=== PATIENT | female | born 1965 | race Caucasian/White ===

== ENCOUNTER → 2018-02-22 10:08 | Outpatient (CLI) | payer BC, SELFPAY ==
[2018-02-22 11:37] LABS: Hemoglobin A1C 6.3 % (0.0-7.0)
[2018-02-22 12:13] LABS: Alanine Aminotransferase 39 U/L (12-78); Albumin Level 3.5 gm/dL (3.4-5.0); Alkaline Phosphatase 103 U/L (46-116); Anion Gap 15.5 mEq/L (5-15); Aspartate Amino Transferase 16 U/L (15-37); Bilirubin,Total 0.3 mg/dL (0.2-1.0); Blood Urea Nitrogen 19 mg/dL (7-18); Calcium 9.3 mg/dL (8.5-10.1); Carbon Dioxide 28 mmol/L (21.0-32.0); Chloride 103 mmol/L (98-107); Chol/HDL Ratio 7.5 (1-3.5); Cholesterol 254 mg/dL (140-200); Creatinine,Serum 1.12 mg/dL (0.55-1.02); Estimated Glomerular Filt Rate 51 ml/min (>60); GFR (African American) 62 ML/MIN (>60); Globulin 3.5 gm/dl (1.3-3.2); Glucose 142 mg/dL (74-106); HDL Cholesterol 34 mg/dL (29-89); Potassium 4.5 mmoL/L (3.5-5.1); Sodium 142 mmol/L (136-145); Thyroid Stimulating Hormone 1.56 uIU/ml (0.358-3.740)
[2018-02-22 12:16] LABS: Triglycerides 462 mg/dL (30-200)
[2018-02-25 05:29] LABS: Vitamin D 25 Hydroxy 25.9 ng/mL (30.0-100.0)
== END ==
PROVIDERS: Visit Provider Family Medicine
DX: E11.9 Type 2 diabetes mellitus without complications (principal); E55.9 Vitamin D deficiency, unspecified; E01.0 Iodine-deficiency related diffuse (endemic) goiter; I10 Essential (primary) hypertension
CPT/HCPCS: 36415; 80053; 80061; 82652; 83036; 84443

== ENCOUNTER → 2018-07-31 14:33 | Outpatient (CLI) | payer BC, SELFPAY ==
[2018-07-31 18:51] LABS: Cholesterol 136 mg/dL (140-200); Free T4 (Free Thyroxine) 1.05 ng/dl (0.76-1.46); HDL Cholesterol 45 mg/dL (29-89); LDL Cholesterol 42 mg/dL (0-130); Thyroid Stimulating Hormone 1.29 uIU/ml (0.358-3.740); Triglycerides 244 mg/dL (30-200); VLDL Cholesterol 49 mg/dL (0-40)
[2018-08-02 17:17] LABS: Vitamin D 25 Hydroxy 45.4 ng/mL (30.0-100.0)
== END ==
PROVIDERS: Visit Provider Emergency Medicine
DX: E78.2 Mixed hyperlipidemia (principal); E03.9 Hypothyroidism, unspecified; E55.9 Vitamin D deficiency, unspecified
CPT/HCPCS: 36415; 80061; 82652; 84439; 84443

== ENCOUNTER 2018-11-19 00:11 | Observation (INO) ==
[2018-11-19 00:42] LABS: Basophils # 0.1 K/mm3 (0-0.2); Basophils % 0.5 % (0.1-2.0); Eosinophils # 0.3 K/mm3 (0.0-0.4); Eosinophils % 2.9 % (0.1-12.0); Hematocrit 36.4 % (37.0-47.0); Hemoglobin 12.1 g/dL (12.2-16.2); Lymphocytes # 2.4 K/mm3 (0.7-4.5); Lymphocytes % 24.8 % (10-50); Mean Corpuscular HGB Conc 33.3 g/dL (31.8-35.4); Mean Corpuscular Hemoglobin 29.9 pg (27.0-31.2); Mean Corpuscular Volume 89.9 fl (81-99); Mean Platelet Volume 7.6 fl (7.4-10.4); Monocytes # 0.4 K/mm3 (0.1-1.0); Monocytes % 4.6 % (1.7-9.3); Neutrophils # 6.5 K/mm3 (1.8-7.8); Neutrophils % 67.2 % (37.0-80.0); Platelet Count 292 K/mm3 (142-424); Red Blood Count 4.05 M/mm3 (4.20-5.40); Red Cell Distribution Width 13.2 % (11.5-17.5); White Blood Count 9.7 K/mm3 (4.8-10.8)
[2018-11-19 00:57] LABS: Anion Gap 9.2 mEq/L (5-15); Blood Urea Nitrogen 16 mg/dL (7-18); Carbon Dioxide 32 mmol/L (21.0-32.0); Chloride 102 mmol/L (98-107); Glucose 124 mg/dL (74-106); Potassium 4.2 mmoL/L (3.5-5.1); Sodium 139 mmol/L (136-145)
--- NOTE | 2018-11-19 00:58 | Emergency Department Note ---
ED Disposition Clinical Impression: Acquired hypothyroidism, Diabetes 1.5, managed as type 2 Chest pain Qualifiers: Chest pain type: precordial pain Qualified Code(s): R07.2 - Precordial pain Obesity Qualifiers: Obesity type: due to excess calories Obesity classification: adult class 1 (BMI 30 - 34.9) Serious obesity comorbidity presence: with serious comorbidity Body mass index: BMI 34.0-34.9 Qualified Code(s): E66.09 - Other obesity due to excess calories; Z68.34 - Body mass index (BMI) 34.0-34.9, adult Disposition: Admitted as Observation Condition on Discharge: Good Referrals: Provider,Referral, [Referring] - - Critical Care Critical Care Time: No Attestation: On 11/19/18, the high probability of a clinically significant, sudden or life threatening deterioration of the following system(s) required my full and direct attention, intervention and personal management. The time I documented below is in addition to time spent performing reported procedures but includes the following listed in this critical care notation. Medical Decision Making - Medical Records Medical records reviewed: Yes: I reviewed the patient's medical records. - Ridge Inquiry Pt receiving controlled substance: No Vital Signs: 11/19/18 00:11 Temperature 98.5 F Temperature Source Oral Pulse Rate [Right Brachial] 94 H Respiratory Rate 15 Blood Pressure [Right Arm] 152/71 H Blood Pressure Mean [Right Arm] 98 02 Sat by Pulse Oximetry 99 Oxygen Delivery Method Room Air - Lab Data Lab results reviewed: Yes: I reviewed the patient's lab results. Lab Results 11/19/18 00:15: WBC 9.7, RBC 4.05 L, Hgb 12.1 L, Hct 36.4 L, MCV 89.9, MCH 29.9, MCHC 33.3, RDW 13.2, Plt Count 292, MPV 7.6, Neut % (Auto) 67.2, Lymph % (Auto) 24.8, Eddy % (Auto) 4.6, Eos % (Auto) 2.9, Baso % (Auto) 0.5, Neut # (Auto) 6.5, Lymph # (Auto) 2.4, Eddy # (Auto) 0.4, Eos # (Auto) 0.3, Baso # (Auto) 0.1 11/19/18 00:15: Sodium 139, Potassium 4.2, Chloride 102, Carbon Dioxide 32, Anio n Gap 9.2, BUN 16, Creatinine 1.08 H, Estimated Creat Clear 79, Estimated GFR 53 L, Est GFR ( Amer) 65, Glucose 124 H, Calcium 9.0, Troponin I < 0.02 Result diagrams: 11/19/18 00:15 11/19/18 00:15 Orders (Tests/Meds): ED MEDICATIONS Discontinued Medications Generic Name Dose Route Start Last Admin Trade Name Yuri PRN Reason Stop Dose Admin Aspirin 324 mg 11/19/18 00:15 11/19/18 00:34 Aspirin 81mg Chewable Tablet PO 11/19/18 00:16 324 mg ONCE ONE Administration Ketorolac Tromethamine 30 mg 11/19/18 00:31 11/19/18 00:34 Toradol 30mg/Ml Vial IV 11/19/18 00:32 30 mg ONCE ONE Administration Nitroglycerin 1 gm 11/19/18 00:40 11/19/18 00:53 Nitroglycerin 1 Inch Oint Udp TD 11/19/18 00:41 1 gm ONCE ONE Administration ORDERS Category Date Time Status XR chest 2V Stat Exams 11/19/18 00:14 Taken ECG Request by /Bryan Stat Y 11/19/18 00:14 Ordered - Radiology Data #1 Image(s): Chest Image Reviewed: Yes I reviewed the patient's radiology image Preliminary Findings: Normal/NAD - ECG Data Tracing #1 Normal Sinus Rhythm: Yes Ischemic changes: non-specific ST-T wave changes - Physician Consults Physician Consulted: vivian Reason -: Admission Chest Pain HPI - General Chief Complaint: Chest Pain Stated Complaint: CHEST PAIN Time Seen by Provider: 11/19/18 00:15 Mode of Arrival: Ambulatory Source of Information: Patient, Spouse, Medical Record Limitations: No Limitations Description of Symptoms (Recalled from ER Triage Doc. by RN): PT REPORTS CHEST PAIN THAT STARTED YESTERDAY MORNING AND LASTED INTERMITTENLY ALL DAY. REPORTS IT RADIATES DOWN LEFT ARM AND INTO LEFT SHOULDER BLADE. REPORTS DIZZINESS THAT STARTED SUNDAY NIGHT AND HAS BEEN INTERMITTENT SINCE THEN. DENIES N/V/D OR ANY OTHER SYMPTOMS. - History of Present Illness HPI narrative: new onset of ant chest which is described as dull - with rad to lt upper ext and has hx of diabetes - has been off and on during the day - worse tonight MD complaint: chest pain indicative of cardiac Onset (ago): day(s) Duration: intermittent Activity at onset: during rest Pain location: left chest Severity: moderate Quality: dull Pain radiation: LUE Risk Factors for CAD: Family Hx of CAD, Diabetes Treatments prior to or on arrival for Cardiac Chest Pain: none - TALIA Score for Non-Stemi Age of Patient: 50-59 years old Heart Rate: 90-109 bpm Systolic Blood Pressure: 140-159 mmHg Serum Creatinine: 0.80-1.19 mg/dl CHF [place] Class: I-No CHF Other Risk Factors: None Non-Stemi Risk Score: 87 - Related Data On Oral Contraceptives: No Home Medications Medication Instructions Recorded Confirmed Atenolol [Atenolol 25mg Tab] 25 mg PO DAILY 11/19/18 11/19/18 Estradiol 1 each TD DAILY 11/19/18 11/19/18 Fluoxetine HCl [Prozac] 40 mg PO DAILY 11/19/18 11/19/18 Icosapent Ethyl [Vascepa] 1 gm PO DAILY 11/19/18 11/19/18 Levothyroxine Sodium 25 mcg PO DAILY 11/19/18 11/19/18 [Levothyroxine 25mcg (0.025mg) Tab] Lisinopril/Hydrochlorothiazide 1 tab PO DAILY 11/19/18 11/19/18 [Lisinopril-Hctz 20-25 mg Tab] Metformin HCl [Fortamet] 500 mg PO BID 11/19/18 11/19/18 Montelukast Sodium [Singulair 10mg 10 mg PO PM 11/19/18 11/19/18 tablet] Pantoprazole Sodium [Protonix 40mg 40 mg PO DAILY 11/19/18 11/19/18 tablet] Rosuvastatin Calcium [Crestor] 40 mg PO DAILY 11/19/18 11/19/18 Allergies Allergy/AdvReac Type Severity Reaction Status Date / Time Penicillins Allergy Verified 11/19/18 00:16 sulfamethoxazole Allergy Verified 11/19/18 00:16 [From Bactrim] trimethoprim [From Bactrim] Allergy Verified 11/19/18 00:16 [facility] History - Hepatitis A Screen Drug use history?: No High risk sexual behaviors?: No History of sexually transmitted infection?: No Currently employed?: No Childcare worker?: No Do you have indoor plumbing?: Yes Do you have electricity?: Yes Attestation statement:: This patient has been screened for Hepatitis A risk factors. I have reviewed the patient's past medical history: Yes Medical History: Reports:: Diabetes Mellitus Type 1, Hypertension Denies:: Cancer, Chronic Obstructive Pulmonary Disease (COPD), Diabetes Mellitus Type 2, Migraine, MRSA Other Medical History: Reports: Other (allergies; "borderline diabetes. He said it wasn't diabetes but close") Other Surgeries: Yes: Appendectomy, Cholecystectomy, Hernia Repair, Other (hysterectom) Amputation: No Fractures: No - Social History Smoking Status: Never smoker Alcohol Intake: never Occupational Status: retired Housing: house Household Members: family - Psychiatric History Expresses thoughts of harming self/others: None Suicide Plan Description: No Plan ROS Obtained: Yes All systems reviewed & no additional complaints - Constitutional Constitutional: Denies fever(s) - Eyes Eyes: Denies change in vision - ENT Ears, Nose, Mouth, and Throat: Denies sore throat - Cardiovascular Cardiovascular: Reports chest pain, Denies dyspnea, Reports radiating jaw, neck or arm pain - Respiratory Respiratory: No cough - Gastrointestinal Gastrointestingal: Denies: abdominal pain - Genitourinary Female Genitourinary: Denies flank pain - Musculoskeletal Musculoskeletal: Denies joint pain - Integumentary/Breasts Skin/Breast: Denies rash - Neurologic Neurologic: Reports dizziness, Denies headache(s) Physical Exam - General General appearance: alert, in no apparent distress, obese - Head Head exam: normocephalic - Eye Eye exam: Present: PERRL, EOMI - ENT ENT exam: Present: mucous membranes moist - Neck Neck exam: Absent: trachea midline - Respiratory Respiratory exam: Present: normal lung sounds bilaterally. Absent: respiratory distress - Cardiovascular Cardiovascular exam: Present: regular rate. Absent: systolic murmur, rubs, gallop - Abdominal Exam Abdominal exam: Present: soft - Extremities Exam Extremities exam: Present: full ROM - Neurological Exam Neurological exam: Present: alert, oriented X3, CN II-XII intact - Psychiatric Psychiatric exam: Present: normal affect - Skin Skin exam: Absent: rash
[2018-11-19 05:21] LABS: Basophils % 0.4 % (0.1-2.0); Eosinophils # 0.2 K/mm3 (0.0-0.4); Eosinophils % 2.9 % (0.1-12.0); Hematocrit 33.7 % (37.0-47.0); Hemoglobin 11.3 g/dL (12.2-16.2); Lymphocytes # 2.3 K/mm3 (0.7-4.5); Lymphocytes % 27.7 % (10-50); Mean Corpuscular HGB Conc 33.6 g/dL (31.8-35.4); Mean Corpuscular Hemoglobin 30.5 pg (27.0-31.2); Mean Corpuscular Volume 90.7 fl (81-99); Mean Platelet Volume 7.7 fl (7.4-10.4); Monocytes # 0.4 K/mm3 (0.1-1.0); Monocytes % 4.8 % (1.7-9.3); Neutrophils # 5.4 K/mm3 (1.8-7.8); Neutrophils % 64.2 % (37.0-80.0); Platelet Count 253 K/mm3 (142-424); Red Blood Count 3.71 M/mm3 (4.20-5.40); Red Cell Distribution Width 13.4 % (11.5-17.5); White Blood Count 8.4 K/mm3 (4.8-10.8)
[2018-11-19 05:33] LABS: Anion Gap 10.2 mEq/L (5-15); Calcium 8.7 mg/dL (8.5-10.1); Chol/HDL Ratio 4.4 (1-3.5); Potassium 4.2 mmoL/L (3.5-5.1)
--- NOTE | 2018-11-19 07:22 | Pharmacy Consult Notes ---
[facility] Pharmacy VTE Monitoring - Patient Demographics Admission date: 11/18/18 Report Date: 11/19/18 Time: 07:22 Allergies/Adverse Reactions: Patient Allergies Penicillins Allergy (Verified 11/19/18 00:16) sulfamethoxazole [From Bactrim] Allergy (Verified 11/19/18 00:16) trimethoprim [From Bactrim] Allergy (Verified 11/19/18 00:16) Height: 1.55 m Weight: 78.018 kg Patient Problems: Current Active Problems (Updated 11/19/18 @ 01:34 by Ryder Fischer MD) Chest pain (Acute) Acquired hypothyroidism (Acute) Diabetes 1.5, managed as type 2 (Acute) Obesity (Acute) - VTE Risk Labs: VTE Related Lab Results Hgb 11.3 g/dL (12.2-16.2) L 11/19/18 04:35 Hct 33.7 % (37.0-47.0) L 11/19/18 04:35 Plt Count 253 K/mm3 (142-424) 11/19/18 04:35 BUN 17 mg/dL (7-18) 11/19/18 04:35 Creatinine 1.16 mg/dL (0.55-1.02) H 11/19/18 04:35 Estimated Creat Clear 71 mL/min (50-200) 11/19/18 04:35 Was VTE Risk Assessment Performed: Yes VTE Score: 2 VTE Risk Level: Low Risk Clinical Trial Participant: No - Prophylaxis VTE Prophylaxis Ordered?: Yes Types of VTE Prophylaxis: TEDS Knee High
--- NOTE | 2018-11-19 08:26 | Consult Report ---
History of Present Illness Consult date: 11/19/18 Requesting physician: Eric Beck Consult reason: chest pain Chief complaint: chest pain Additional Medical History:: 1. HTN A. Echo, 11/2018, essentially normal. 2. Anxiety 3. HLD 4. DM, type 2, treated for since early 2017 5. History of hiatal hernia per patient 6. Palpitations, treated with atenolol for many years History of present illness: 53 yo WF with HTN, HLD and DM type 2 came to ER for evaluation of chest pain that had persisted for several hours. Pt relates recurrent episodes of dizziness on 11/16/2018 and 11/17/2018 with some associated chest discomfort that was brief in duration. After talking to a neighbor who is a nurse, she decided to come in for evaluation. In the ER she was given ASA, and pain meds along with the NTG paste with relief of discomfort. She has had no recurrent symptoms overnight. Her troponins have returned normal overnight and her preliminary echo shows normal LVEF. Cardiology consulted for evaluation and recommendations. She denies any cardiac history except she is on atenolol for palpitations and has been for 15 yrs. She has been treated for diabetes for about one year. She denies smoking. Her EKG is sinus and normal. [facility] History Medical History: Reports:: Diabetes Mellitus Type 1, Hypertension Denies:: Cancer, Chronic Obstructive Pulmonary Disease (COPD), Diabetes Mellitus Type 2, Migraine, MRSA *Have you ever received a pneumonia vaccine?: No *Have you received a flu vaccine this season?: No Other Medical History: Reports: Hypothyroidism, Other (allergies; "borderline diabetes. He said it wasn't diabetes but close") Other Surgeries: Yes: Appendectomy, Cholecystectomy, Hernia Repair, Other (hysterectom) Amputation: No Fractures: No - *Social History Educational Level: Completed High School Smoking Status: Never smoker Alcohol Intake: never *Occupational Status:: retired Housing: house Household Members: family *Travel in the last 8 weeks: None - Psychiatric History Expresses thoughts of harming self/others: None Suicide Plan Description: No Plan Family Hx:: No significant family history Meds Home Medications Medication Instructions Recorded Confirmed Type Atenolol [Atenolol 25mg Tab] 25 mg PO DAILY 11/19/18 11/19/18 History Estradiol [Estrace 1mg tablet] 1 mg PO DAILY 11/19/18 11/19/18 History Fluoxetine HCl [Prozac] 40 mg PO DAILY 11/19/18 11/19/18 History Icosapent Ethyl [Vascepa] 1 gm PO BID 11/19/18 11/19/18 History Levothyroxine Sodium 25 mcg PO DAILY 11/19/18 11/19/18 History [Levothyroxine 25mcg (0.025mg) Tab] Lisinopril/Hydrochlorothiazide 1 tab PO DAILY 11/19/18 11/19/18 History [Lisinopril-Hctz 20-25 mg Tab] Metformin HCl [Fortamet] 500 mg PO DAILY 11/19/18 11/19/18 History Montelukast Sodium [Singulair 10mg 10 mg PO PM 11/19/18 11/19/18 History tablet] Pantoprazole Sodium [Protonix 40mg 40 mg PO DAILY 11/19/18 11/19/18 History tablet] Rosuvastatin Calcium [Crestor] 40 mg PO DAILY 11/19/18 11/19/18 History Zaleplon [Sonata] 10 mg PO HS 11/19/18 11/19/18 History Allergies Allergy/AdvReac Type Severity Reaction Status Date / Time Penicillins Allergy Verified 11/19/18 00:16 sulfamethoxazole Allergy Verified 11/19/18 00:16 [From Bactrim] trimethoprim [From Bactrim] Allergy Verified 11/19/18 00:16 Review of Systems - *Cardiovascular Reports chest pain, Denies shortness of breath - *Respiratory Denies cough, Denies shortness of breath, Denies wheezing - *Gastrointestinal Denies loose stools, Denies heartburn - *Genitourinary Denies difficulty urinating, Denies painful urination - *Musculoskeletal Denies joint pain, Denies back pain - *Neurologic Reports dizziness, Denies headache(s) Exam Vital signs and Labs for Last 24 Hours: Temp Pulse Resp BP Pulse Ox 97.8 F 84 16 95/52 L 94 L 11/19/18 04:35 11/19/18 06:31 11/19/18 04:35 11/19/18 06:31 11/19/18 04:35 Laboratory Results - last 24 hr 11/19/18 00:15: WBC 9.7, RBC 4.05 L, Hgb 12.1 L, Hct 36.4 L, MCV 89.9, MCH 29.9, MCHC 33.3, RDW 13.2, Plt Count 292, MPV 7.6, Neut % (Auto) 67.2, Lymph % (Auto) 24.8, Towns % (Auto) 4.6, Eos % (Auto) 2.9, Baso % (Auto) 0.5, Neut # (Auto) 6.5, Lymph # (Auto) 2.4, Towns # (Auto) 0.4, Eos # (Auto) 0.3, Baso # (Auto) 0.1 11/19/18 00:15: Sodium 139, Potassium 4.2, Chloride 102, Carbon Dioxide 32, Anion Gap 9.2, BUN 16, Creatinine 1.08 H, Estimated Creat Clear 79, Estimated GFR 53 L, Est GFR ( Amer) 65, Glucose 124 H, Calcium 9.0, Troponin I < 0.02 11/19/18 04:35: Troponin I < 0.02 11/19/18 04:35: WBC 8.4, RBC 3.71 L, Hgb 11.3 L, Hct 33.7 L, MCV 90.7, MCH 30.5, MCHC 33.6, RDW 13.4, Plt Count 253, MPV 7.7, Neut % (Auto) 64.2, Lymph % (Auto) 27.7, Towns % (Auto) 4.8, Eos % (Auto) 2.9, Baso % (Auto) 0.4, Neut # (Auto) 5.4, Lymph # (Auto) 2.3, Towns # (Auto) 0.4, Eos # (Auto) 0.2, Baso # (Auto) 0.0 11/19/18 04:35: Sodium 140, Potassium 4.2, Chloride 104, Carbon Dioxide 30, Anion Gap 10.2, BUN 17, Creatinine 1.16 H, Estimated Creat Clear 71, Estimated GFR 49 L, Est GFR ( Amer) 60, Glucose 126 H, Calcium 8.7, Magnesium 1.4, Triglycerides 260 H, Cholesterol 155, LDL Cholesterol 68, VLDL Cholesterol 52 H, HDL Cholesterol 35, Cholesterol/HDL Ratio 4.4 H I & O for Last 24 hours: Intake & Output 11/16/18 11/17/18 11/18/18 05/07/19 11:59 11:59 11:59 11:59 Intake Total Balance Weight 172 lb - *Routine HEENT Exam Head: Present: normocephalic Eye: Present: EOMI, PERRL ENT: Present: mucous membranes moist - *Routine Respiratory Exam Present: CTA bilaterally. Absent: accessory muscle use, rales, rhonchi, wheezes - *Routine Cardiovascular Exam Present: RRR. Absent: murmur, gallop, rubs - *Routine Abdominal Exam Present: soft. Absent: tenderness, distended, guarding - *Routine Extremities Exam Absent: edema, calf tenderness - *Routine Neurological Exam Present: alert, oriented X3, moving all extremities Assessment and Plan (1) Chest pain Current visit: Yes Status: Acute Qualifiers: Chest pain type: precordial pain Qualified Code(s): R07.2 - Precordial pain Category: Medical Code(s): R07.9 - Chest pain, unspecified (2) Hypertension Current visit: Yes Status: Acute Category: Medical Code(s): I10 - Essential (primary) hypertension (3) Hyperlipidemia associated with type 2 diabetes mellitus Current visit: Yes Status: Acute Category: Medical Code(s): E11.69 - Type 2 diabetes mellitus with other specified complication; E78.5 - Hyperlipidemia, unspecified (4) Diabetes 1.5, managed as type 2 Current visit: Yes Status: Acute Category: Medical Code(s): E13.9 - Other specified diabetes mellitus without complications (5) Obesity Current visit: Yes Status: Acute Qualifiers: Obesity type: due to excess calories Obesity classification: adult class 1 (BMI 30 - 34.9) Serious obesity comorbidity presence: with serious comorbidity Body mass index: BMI 34.0-34.9 Qualified Code(s): E66.09 - Other obesity due to excess calories; Z68.34 - Body mass index (BMI) 34.0-34.9, adult Category: Medical Code(s): E66.9 - Obesity, unspecified - Assessment and plan all Dx Assessment and Plan for all problems:: 1. Chest pain with normal EKG, troponins and essentially normal echo. Recommend GXT myoview. Pt initially agreed to proceed but then informed the nurse she wanted to go home. Recommend outpatient stress testing. 2. Add ASA 81 mg daily and norvasc 5 mg daily for chest pain until further workup complete. 3. History of hiatal hernia needs further evaluation. 4. With history of dizziness, recommend 48 hr holter for evaluation of arrhythmias (none seen on telemetry overnight). 5. Pt could be discharged from cardiology standpoint with early follow up.
--- NOTE | 2018-11-19 09:48 | History & Physical Report ---
*Admission Date: 11/18/18 <Moira Mccullough 11/19/18 09:49> *Chief complaint: Chest pain <Moira Mccullough 11/19/18 09:49> *History of present illness: Ms. Duckworth is a 53 yo WF with history of hiatal hernia, GERD, insomnia, hypothyroidism, HTN, HLD and DM type 2 presented to [facility] emergency room after experiencing worsening chest discomfort yesterday. She said the pain actually started in the a.m. after awakening and described it as a dull ache with periodic sharp pains which went up into her left shoulder and down her left arm. She then developed chest pressure. With the worsening discomfort she had her bring her to the emergency room for evaluation. She describes some nausea and some shortness of breath with the pain. She denies palpitations. She sometimes has some edema in her right leg. She also states that she has had dizzy spells 1 of which was on 11/17/2018 and lasted throughout the day. This a.m. patient states she still has some chest pressure. She was able to sleep some. She remains n.p.o. for cardiac consultation. She denies shortness of breath. Patient has been seen by cardiology with the following documentation :in the ER she was given ASA, and pain meds along with the NTG paste with relief of discomfort. She has had no recurrent symptoms overnight. Her troponins have returned normal overnight and her preliminary echo shows normal LVEF. Cardiology consulted for evaluation and recommendations. She denies any cardiac history except she is on atenolol for palpitations and has been for 15 yrs. She has been treated for diabetes for about one year. She denies smoking. Her EKG is sinus and normal. <Moira Mccullough 11/19/18 10:00> [facility] History Medical History: Reports:: Anxiety (Patient states she sometimes has panic attacks), Depression, Diabetes Mellitus Type 1, Gastroesophageal Reflux Disease(GERD), Hiatal Hernia, Hypertension Denies:: Cancer, Chronic Obstructive Pulmonary Disease (COPD), Diabetes Mellitus Type 2, Migraine, MRSA <Mccullough,Moira 11/19/18 10:00> *Have you ever received a pneumonia vaccine?: No <Moira Mccullough 11/19/18 09:49> *Have you received a flu vaccine this season?: No <Carmita Mcculloughanoop Enrique 11/19/18 09:49> Other Medical History: Reports: Hypothyroidism, Other (allergies; "borderline diabetes. He said it wasn't diabetes but close") <Moira Mccullough 11/19/18 09:49> Other Surgeries: Yes: Appendectomy, Cholecystectomy, Hernia Repair, Other (hysterectom) <Moira Mccullough 11/19/18 09:49> Amputation: No <Moira Mccullough 11/19/18 09:49> Fractures: No <Moira Mccullough 11/19/18 09:49> - *Social History Educational Level: Completed High School <Moira Mccullough 11/19/18 09:49> Smoking Status: Never smoker <Moira Mccullough 11/19/18 09:49> Alcohol Intake: never <SadiaMoira - 11/19/18 09:49> *Occupational Status:: retired <Moira Mccullough 11/19/18 09:49> Housing: house <Moira Mccullough 11/19/18 09:49> Household Members: family <McculloughMoira 11/19/18 09:49> *Travel in the last 8 weeks: None <Moira Mccullough 11/19/18 09:49> - Psychiatric History Expresses thoughts of harming self/others: None <Moira Mccullough 11/19/18 09:49> Suicide Plan Description: No Plan <Moira Mccullough 11/19/18 09:49> Pschychiatric History:: Reports:: Anxiety <Moira Mccullough 11/19/18 10:00> Family Hx:: Cancer, Diabetes, Hypertension, Stroke <Moira Mccullough 11/19/18 10:00> Review of Systems - Constitutional Denies headache(s), Denies weakness <Moira Mccullough 11/19/18 10:00> - Eyes Denies change in vision <Moira Mccullough 11/19/18 10:00> - ENT Reports dizziness, Denies ear pain, Denies sore throat <Moira Mccullough 11/19/18 10:00> - *Cardiovascular Reports chest pain, Reports chest pain at rest, Reports chest pain with activity, Reports shortness of breath, Reports leg swelling (Right leg), Reports radiating jaw, neck or arm pain, Denies irregular heart rhythm, Denies rapid, pounding, or irregular heartbeat <Moira Mccullough 11/19/18 10:00> - *Respiratory Reports shortness of breath, Denies chest congestion, Denies cough, Denies coughing up blood <Moira Mccullough 11/19/18 10:00> - *Gastrointestinal Reports heartburn, Denies abdominal pain, Denies change in bowel habits, Denies change in stools, Denies excessive passing of gas, Denies vomiting blood, Denies black, tarry stools, Denies nausea, Denies vomiting <Moira Mccullough 11/19/18 10:00> - *Genitourinary Denies difficulty urinating <Moira Mccullough 11/19/18 10:00> Comments: Was treated for urinary tract infection 2 weeks ago <Moira Mccullough 11/19/18 10:00> - *Musculoskeletal Denies abnormal walking, Denies joint pain, Denies body aches <Moira Mccullough 11/19/18 10:00> - *Neurologic Reports dizziness, Denies abnormal walking, Denies headache(s), Denies seizure- like activity <Moira Mccullough 11/19/18 10:00> - Psychiatric Reports abnormal sleep pattern, Reports anxiety, Reports depression, Reports panic attacks <Moira Mccullough 11/19/18 10:00> Meds Home Medications Medication Instructions Recorded Confirmed Type Atenolol [Atenolol 25mg Tab] 25 mg PO DAILY 11/19/18 11/19/18 History Estradiol [Estrace 1mg tablet] 1 mg PO DAILY 11/19/18 11/19/18 History Fluoxetine HCl [Prozac] 40 mg PO DAILY 11/19/18 11/19/18 History Icosapent Ethyl [Vascepa] 1 gm PO BID 11/19/18 11/19/18 History Levothyroxine Sodium 25 mcg PO DAILY 11/19/18 11/19/18 History [Levothyroxine 25mcg (0.025mg) Tab] Lisinopril/Hydrochlorothiazide 1 tab PO DAILY 11/19/18 11/19/18 History [Lisinopril-Hctz 20-25 mg Tab] Metformin HCl [Fortamet] 500 mg PO DAILY 11/19/18 11/19/18 History Montelukast Sodium [Singulair 10mg 10 mg PO PM 11/19/18 11/19/18 History tablet] Pantoprazole Sodium [Protonix 40mg 40 mg PO DAILY 11/19/18 11/19/18 History tablet] Rosuvastatin Calcium [Crestor] 40 mg PO DAILY 11/19/18 11/19/18 History Zaleplon [Sonata] 10 mg PO HS 11/19/18 11/19/18 History <Eric Beck - 11/19/18 16:44> Allergies Allergy/AdvReac Type Severity Reaction Status Date / Time Penicillins Allergy Verified 11/19/18 00:16 sulfamethoxazole Allergy Verified 11/19/18 00:16 [From Bactrim] trimethoprim [From Bactrim] Allergy Verified 11/19/18 00:16 <Eric Beck - 11/19/18 16:44> Exam Vital signs and Labs for Last 24 Hours: Temp Pulse Resp BP Pulse Ox 98.0 F 85 20 102/64 L 93 L 11/19/18 13:45 11/19/18 13:45 11/19/18 13:45 11/19/18 13:45 11/19/18 09:26 Laboratory Results - last 24 hr 11/19/18 00:15: WBC 9.7, RBC 4.05 L, Hgb 12.1 L, Hct 36.4 L, MCV 89.9, MCH 29.9, MCHC 33.3, RDW 13.2, Plt Count 292, MPV 7.6, Neut % (Auto) 67.2, Lymph % (Auto) 24.8, [place] % (Auto) 4.6, Eos % (Auto) 2.9, Baso % (Auto) 0.5, Neut # (Auto) 6.5, Lymph # (Auto) 2.4, [place] # (Auto) 0.4, Eos # (Auto) 0.3, Baso # (Auto) 0.1 11/19/18 00:15: Sodium 139, Potassium 4.2, Chloride 102, Carbon Dioxide 32, Anion Gap 9.2, BUN 16, Creatinine 1.08 H, Estimated Creat Clear 79, Estimated GFR 53 L, Est GFR ( Amer) 65, Glucose 124 H, Calcium 9.0, Troponin I < 0.02 11/19/18 04:35: Troponin I < 0.02 11/19/18 04:35: WBC 8.4, RBC 3.71 L, Hgb 11.3 L, Hct 33.7 L, MCV 90.7, MCH 30.5, MCHC 33.6, RDW 13.4, Plt Count 253, MPV 7.7, Neut % (Auto) 64.2, Lymph % (Auto) 27.7, [place] % (Auto) 4.8, Eos % (Auto) 2.9, Baso % (Auto) 0.4, Neut # (Auto) 5.4, Lymph # (Auto) 2.3, [place] # (Auto) 0.4, Eos # (Auto) 0.2, Baso # (Auto) 0.0 11/19/18 04:35: Sodium 140, Potassium 4.2, Chloride 104, Carbon Dioxide 30, Anion Gap 10.2, BUN 17, Creatinine 1.16 H, Estimated Creat Clear 71, Estimated GFR 49 L, Est GFR ( Amer) 60, Glucose 126 H, Calcium 8.7, Magnesium 1.4, Triglycerides 260 H, Cholesterol 155, LDL Cholesterol 68, VLDL Cholesterol 52 H, HDL Cholesterol 35, Cholesterol/HDL Ratio 4.4 H 11/19/18 07:52: Troponin I < 0.02 <Eric Beck - 11/19/18 16:44> Temp Pulse Resp BP Pulse Ox 98.0 F 84 17 116/55 L 93 L 11/19/18 08:00 11/19/18 09:26 11/19/18 09:26 11/19/18 08:00 11/19/18 09:26 Laboratory Results - last 24 hr 11/19/18 00:15: WBC 9.7, RBC 4.05 L, Hgb 12.1 L, Hct 36.4 L, MCV 89.9, MCH 29.9, MCHC 33.3, RDW 13.2, Plt Count 292, MPV 7.6, Neut % (Auto) 67.2, Lymph % (Auto) 24.8, [place] % (Auto) 4.6, Eos % (Auto) 2.9, Baso % (Auto) 0.5, Neut # (Auto) 6.5, Lymph # (Auto) 2.4, [place] # (Auto) 0.4, Eos # (Auto) 0.3, Baso # (Auto) 0.1 11/19/18 00:15: Sodium 139, Potassium 4.2, Chloride 102, Carbon Dioxide 32, Anion Gap 9.2, BUN 16, Creatinine 1.08 H, Estimated Creat Clear 79, Estimated GFR 53 L, Est GFR ( Amer) 65, Glucose 124 H, Calcium 9.0, Troponin I < 0.02 11/19/18 04:35: Troponin I < 0.02 11/19/18 04:35: WBC 8.4, RBC 3.71 L, Hgb 11.3 L, Hct 33.7 L, MCV 90.7, MCH 30.5, MCHC 33.6, RDW 13.4, Plt Count 253, MPV 7.7, Neut % (Auto) 64.2, Lymph % (Auto) 27.7, [place] % (Auto) 4.8, Eos % (Auto) 2.9, Baso % (Auto) 0.4, Neut # (Auto) 5.4, Lymph # (Auto) 2.3, [place] # (Auto) 0.4, Eos # (Auto) 0.2, Baso # (Auto) 0.0 11/19/18 04:35: Sodium 140, Potassium 4.2, Chloride 104, Carbon Dioxide 30, Anion Gap 10.2, BUN 17, Creatinine 1.16 H, Estimated Creat Clear 71, Estimated GFR 49 L, Est GFR ( Amer) 60, Glucose 126 H, Calcium 8.7, Magnesium 1.4, Triglycerides 260 H, Cholesterol 155, LDL Cholesterol 68, VLDL Cholesterol 52 H, HDL Cholesterol 35, Cholesterol/HDL Ratio 4.4 H 11/19/18 07:52: Troponin I < 0.02 <Moira Mccullough - 11/19/18 10:00> I & O for Last 24 hours: Intake & Output 11/17/18 11/18/18 11/19/18 11/20/18 11:59 11:59 11:59 11:59 Intake Total 96 / 96 Balance 96 / Weight 172 lb <Eric Beck - 11/19/18 16:44> Intake & Output 11/16/18 11/17/18 11/18/18 11/19/18 11:59 11:59 11:59 11:59 Intake Total 96 / 96 Balance 96 / 96 Weight 172 lb <Moira Mccullough 11/19/18 09:49> Radiology Reports for the Last 24 Hours: 11/19/2018 chest x-ray IMPRESSION: Negative chest, no acute finding <Moira Mccullough 11/19/18 10:00> - Constitutional no acute distress <Moira Mccullough 11/19/18 10:00> Comments: Appears comfortable <Moira Mccullough 11/19/18 10:00> - *Routine HEENT Exam Head: Present: normocephalic, atraumatic <Moira Mccullough 11/19/18 10:00> Eye: Present: PERRL <[facility] 11/19/18 10:00> ENT: Present: mucous membranes moist, oropharynx clear <Moira Mccullough 11/19/18 10:00> - *Routine Neck Exam Present: supple. Absent: carotid bruit, lymphadenopathy, thyromegaly <Moira Mccullough 11/19/18 10:00> - *Routine Respiratory Exam Present: CTA bilaterally (Anteriorly and posteriorly) <Moira Mccullough 11/19/18 10:00> - *Routine Cardiovascular Exam Present: RRR <[facility] 11/19/18 10:00> - *Routine Abdominal Exam Present: soft, normoactive bowel sounds. Absent: tenderness <Moira Mccullough 11/19/18 10:00> - *Routine Extremities Exam Present: pulses intact. Absent: edema, calf tenderness <Moira Mccullough 11/19/18 10:00> - *Routine Neurological Exam Present: alert, oriented X3 <Moira Mccullough 11/19/18 10:00> Assessment and Plan (1) Chest pain Status: Acute Qualifiers: Chest pain type: precordial pain Qualified Code(s): R07.2 - Precordial pain Category: Medical Code(s): R07.9 - Chest pain, unspecified (2) Hypertension Status: Acute Category: Medical Code(s): I10 - Essential (primary) hypertension (3) Hyperlipidemia associated with type 2 diabetes mellitus Status: Acute Category: Medical Code(s): E11.69 - Type 2 diabetes mellitus with other specified complication; E78.5 - Hyperlipidemia, unspecified (4) Obesity Status: Acute Qualifiers: Obesity type: due to excess calories Obesity classification: adult class 1 (BMI 30 - 34.9) Serious obesity comorbidity presence: with serious comorbidity Body mass index: BMI 34.0-34.9 Qualified Code(s): E66.09 - Other obesity due to excess calories; Z68.34 - Body mass index (BMI) 34.0-34.9, adult Category: Medical Code(s): E66.9 - Obesity, unspecified (5) Anxiety Status: Chronic Category: Medical Code(s): F41.9 - Anxiety disorder, unspecified (6) Hiatal hernia with gastroesophageal reflux Status: Chronic Category: Medical Code(s): K21.9 - Gastro-esophageal reflux disease without esophagitis; K44.9 - Diaphragmatic hernia without obstruction or gangrene (7) Acquired hypothyroidism Status: Chronic Category: Medical Code(s): E03.9 - Hypothyroidism, unspecified <Eric Beck - 11/19/18 16:44> (1) Chest pain Status: Acute Qualifiers: Chest pain type: precordial pain Qualified Code(s): R07.2 - Precordial pain Category: Medical Code(s): R07.9 - Chest pain, unspecified (2) Hypertension Status: Acute Category: Medical Code(s): I10 - Essential (primary) hypertension (3) Hyperlipidemia associated with type 2 diabetes mellitus Status: Acute Category: Medical Code(s): E11.69 - Type 2 diabetes mellitus with other specified complication; E78.5 - Hyperlipidemia, unspecified (4) Diabetes 1.5, managed as type 2 Status: Acute Category: Medical Code(s): E13.9 - Other specified diabetes mellitus without complications (5) Obesity Status: Acute Qualifiers: Obesity type: due to excess calories Obesity classification: adult class 1 (BMI 30 - 34.9) Serious obesity comorbidity presence: with serious comorbidity Body mass index: BMI 34.0-34.9 Qualified Code(s): E66.09 - Other obesity due to excess calories; Z68.34 - Body mass index (BMI) 34.0-34.9, adult Category: Medical Code(s): E66.9 - Obesity, unspecified (6) Anxiety Status: Chronic Category: Medical Code(s): F41.9 - Anxiety disorder, unspecified (7) Hiatal hernia with gastroesophageal reflux Status: Chronic Category: Medical Code(s): K21.9 - Gastro-esophageal reflux disease without esophagitis; K44.9 - Diaphragmatic hernia without obstruction or gangrene (8) Acquired hypothyroidism Status: Chronic Category: Medical Code(s): E03.9 - Hypothyroidism, unspecified <Moira Mccullough - 11/19/18 09:51> - Assessment and plan all Dx Assessment and Plan for all problems:: Patient seen and examined. Concur with above assessment and plan. <Eric Beck - 11/19/18 16:44> Thus far test have been negative. Patient has been seen by cardiology and will have a stress test. We will continue to monitor. <Moira Mccullough - 11/19/18 10:00>
--- NOTE | 2018-11-20 05:58 | Cardiology Report ---
PROCEDURE: 2-D M-mode and color Doppler study INDICATIONS FOR THE TEST: Chest pain COPD Heart Murmur Tobacco Smoking Palpitations Fatigue Syncope Edema+ Hypertension+Diabetes Mellitus+ Rheumatic Fever SOB HAYES Obesity+Hyperlipidemia Family History HD Additional History PATIENT INFORMATION HEIGHT: 61 WEIGHT:180 GENDER: Female B/P:152/71 2-D/M-MODE INTERPRETATION: 2-D MEASUREMENTS OBSERVED VALUES IN CMS Right Ventricular Dimension (RVDd) 2.3 Interventricular Septum (Thickness)(IVsd) 1.2 Left Ventricular Internal Dimensions(LVIDd) 4.6 Left Ventricular Posterior Wall (Thickness)(LVPWd) 0.6 Aortic Root 3.1 Aortic Cusp Separation 2.0 Left Atrial Dimensions (LAD) 3.8 2D 1. Left atrium is mildly enlarged, left ventricle is normal size there is mild concentric left ventricular hypertrophy, visually estimated ejection fraction 55% with no regional wall motion abnormality. 2. The right atrium and right ventricle are mildly enlarged with normal contractility. 3. The aortic valve is minimally thickened and fibrosed. 4. The mitral and tricuspid valve leaflets are minimally thickened 5. The pulmonic valve is poorly present. 6. No significant pericardial effusion noted. DOPPLER INTERROGATION: Doppler interrogation of the aortic, mitral and tricuspid valvular presence of mild mitral and tricuspid regurgitation, tricuspid regurgitation jet velocity is inadequate for calculation of the right ventricular systolic pressure, grade 1 diastolic dysfunction seen with tissue Doppler evidence of raised left atrial pressure. CONCLUSION: 1. Mildly enlarged left atrium, normal left ventricular size, mild concentric left ventricular hypertrophy, visually estimated ejection fraction 55% with no regional wall motion abnormality, grade 1 diastolic dysfunction seen with tissue Doppler evidence of raised left atrial pressure. 2. Mildly enlarged right ventricle with normal contractility. 3. Mild mitral and tricuspid regurgitation 4. No significant pericardial effusion noted.
--- NOTE | 2018-11-22 21:16 | Discharge Summary ---
General - General Admission date:: 11/19/18 <Eric Beck - 11/28/18 16:59> 11/19/18 <Janeth Peña - 11/22/18 21:23> Discharge date: 11/19/18 <Janeth Peña - 11/22/18 21:23> HPI HPI: Ms. Mariscal is a 53 yo WF with history of hiatal hernia, GERD, insomnia, hypothyroidism, HTN, HLD and DM type 2 presented to [facility] emergency room after experiencing worsening chest discomfort yesterday. She said the pain actually started in the a.m. after awakening and described it as a dull ache with periodic sharp pains which went up into her left shoulder and down her left arm. She then developed chest pressure. With the worsening discomfort she had her bring her to the emergency room for evaluation. She describes some nausea and some shortness of breath with the pain. She denies palpitations. She sometimes has some edema in her right leg. She also states that she has had dizzy spells 1 of which was on 11/17/2018 and lasted throughout the day. <Janeth Peña - 11/22/18 21:23> Hospital Course Hospital Course: The patient's CXR showed nothing acute. She was given ASA and pain medication along with nitropaste with relief of the discomfort. Her troponins all returned normal and her echo showed a normal LVEF. Cardiology was consulted for evaluation. Her only cardiac history was the fact that she was on atenolol for palpitations. She denied any smoking history. Her EKG was normal and showed sinus rhythm. Cardiology recommended a stress test. Patient had a stress test done and it showed no evidence of ischemia and a LVEF of 70%. She had no chest pain with activity. They recommended to discontinue her Norvasc due to low blood pressure continue other home medications. They felt she was stable to be discharged. <Janeth Peña - 11/22/18 21:23> Objective Vital signs: Temp Pulse Resp BP Pulse Ox 98.0 F 85 20 102/64 L 93 L 11/19/18 13:45 11/19/18 13:45 11/19/18 13:45 11/19/18 13:45 11/19/18 09:26 <Eric Beck - 11/28/18 16:59> Temp Pulse Resp BP Pulse Ox 98.0 F 85 20 102/64 L 93 L 11/19/18 13:45 11/19/18 13:45 11/19/18 13:45 11/19/18 13:45 11/19/18 09:26 <Janeth Peña 11/22/18 21:23> Narrative: - Constitutional no acute distress Comments: Appears comfortable - *Routine HEENT Exam Head: Present: normocephalic, atraumatic Eye: Present: PERRL ENT: Present: mucous membranes moist, oropharynx clear - *Routine Neck Exam Present: supple. Absent: carotid bruit, lymphadenopathy, thyromegaly - *Routine Respiratory Exam Present: CTA bilaterally (Anteriorly and posteriorly) - *Routine Cardiovascular Exam Present: RRR - *Routine Abdominal Exam Present: soft, normoactive bowel sounds. Absent: tenderness - *Routine Extremities Exam Present: pulses intact. Absent: edema, calf tenderness - *Routine Neurological Exam Present: alert, oriented X3 <Janeth Peña 11/22/18 21:23> DS: Diagnosis - Discharge Diagnosis (1) Chest pain Status: Acute (2) Hypertension Status: Acute (3) Hyperlipidemia associated with type 2 diabetes mellitus Status: Acute (4) Obesity Status: Acute (5) Anxiety Status: Chronic (6) Hiatal hernia with gastroesophageal reflux Status: Chronic (7) Acquired hypothyroidism Status: Chronic <Janeth Peña 11/22/18 21:12> (1) Chest pain Status: Acute (2) Hypertension Status: Acute (3) Hyperlipidemia associated with type 2 diabetes mellitus Status: Acute (4) Obesity Status: Acute (5) Anxiety Status: Chronic (6) Hiatal hernia with gastroesophageal reflux Status: Chronic (7) Acquired hypothyroidism Status: Chronic <Eric Beck 11/28/18 16:59> Discharge Plan - Patient Discharge Instructions ACTIVITY: Continue current activity <Janeth Peña 11/22/18 21:23> DIET: diabetic diet, low fat, low cholesterol <Janeth Peña 11/22/18 21:23> Patient Instructions: DI for Angina <Eric Beck 11/28/18 16:59> Forms: <Eric Beck 11/28/18 16:59> - Follow up Plan Follow up with: Eric Beck MD [Primary Care Provider] - 11/26/18 11:30 am <Eric Beck - 11/28/18 16:59> Disposition: Home, Self-Care <Eric Beck - 11/28/18 16:59> Home Medications: Home Medications Medication Instructions Recorded Confirmed Type Atenolol [Atenolol 25mg Tab] 25 mg PO DAILY 11/19/18 11/19/18 History Estradiol [Estrace 1mg tablet] 1 mg PO DAILY 11/19/18 11/19/18 History Fluoxetine HCl [Prozac] 40 mg PO DAILY 11/19/18 11/19/18 History Icosapent Ethyl [Vascepa] 1 gm PO BID 11/19/18 11/19/18 History Levothyroxine Sodium 25 mcg PO DAILY 11/19/18 11/19/18 History [Levothyroxine 25mcg (0.025mg) Tab] Lisinopril/Hydrochlorothiazide 1 tab PO DAILY 11/19/18 11/19/18 History [Lisinopril-Hctz 20-25 mg Tab] Metformin HCl [Fortamet] 500 mg PO DAILY 11/19/18 11/19/18 History Montelukast Sodium [Singulair 10mg 10 mg PO PM 11/19/18 11/19/18 History tablet] Pantoprazole Sodium [Protonix 40mg 40 mg PO DAILY 11/19/18 11/19/18 History tablet] Rosuvastatin Calcium [Crestor] 40 mg PO DAILY 11/19/18 11/19/18 History Zaleplon [Sonata] 10 mg PO HS 11/19/18 11/19/18 History <Eric Beck - 11/28/18 16:59> Prescriptions/Medication Reconciliation: Continued Montelukast Sodium [Singulair 10mg tablet] 10 mg PO PM Levothyroxine Sodium [Levothyroxine 25mcg (0.025mg) Tab] 25 mcg PO DAILY Rosuvastatin Calcium [Crestor] 40 mg PO DAILY Pantoprazole Sodium [Protonix 40mg tablet] 40 mg PO DAILY Metformin HCl [Fortamet] 500 mg PO DAILY Icosapent Ethyl [Vascepa] 1 gm PO BID Fluoxetine HCl [Prozac] 40 mg PO DAILY Atenolol [Atenolol 25mg Tab] 25 mg PO DAILY Zaleplon [Sonata] 10 mg PO HS Lisinopril/Hydrochlorothiazide [Lisinopril-Hctz 20-25 mg Tab] 1 tab PO DAILY Estradiol [Estrace 1mg tablet] 1 mg PO DAILY <Eric Beck - 11/28/18 16:59> - Additional Information Additional Information: Concur with plan for discharge as outlined above. <Eric Beck - 11/28/18 16:59>
== END 2018-11-19 15:52 | disposition home or self-care (01) ==
LOC: ICU 00:11 → ER 00:11 → ICU 01:52
PROVIDERS: ADMIT Family Medicine; ATTEND Family Medicine
DX: Z88.2 Allergy status to sulfonamides; Z68.32 Body mass index [BMI] 32.0-32.9, adult; I10 Essential (primary) hypertension; E78.5 Hyperlipidemia, unspecified; R42 Dizziness and giddiness; E03.9 Hypothyroidism, unspecified; Z88.1 Allergy status to other antibiotic agents; Z83.3 Family history of diabetes mellitus; E13.9 Other specified diabetes mellitus without complications; F41.9 Anxiety disorder, unspecified; R07.9 Chest pain, unspecified; Z88.0 Allergy status to penicillin; E66.9 Obesity, unspecified; Z79.899 Other long term (current) drug therapy; K21.9 Gastro-esophageal reflux disease without esophagitis; G47.00 Insomnia, unspecified
CPT/HCPCS: 36415; 71020; 71046; 78452; 80048; 80061; 82962; 83735; 84484; 85025; 93005; 93017; 93306; 96374; 99284; A9502; G0378

== ENCOUNTER → 2019-02-22 08:38 | Outpatient (CLI) | payer BC, SELFPAY ==
[2019-02-22 08:57] LABS: Basophils % 0.3 % (0.1-2.0); Eosinophils # 0.3 K/mm3 (0.0-0.4); Eosinophils % 3.5 % (0.1-12.0); Hematocrit 36.4 % (37.0-47.0); Hemoglobin 11.6 g/dL (12.2-16.2); Lymphocytes % 27.3 % (10-50); Mean Corpuscular HGB Conc 31.9 g/dL (31.8-35.4); Mean Corpuscular Hemoglobin 29.1 pg (27.0-31.2); Mean Corpuscular Volume 91.3 fl (81-99); Mean Platelet Volume 8.1 fl (7.4-10.4); Monocytes # 0.3 K/mm3 (0.1-1.0); Monocytes % 4.2 % (1.7-9.3); Neutrophils # 4.8 K/mm3 (1.8-7.8); Neutrophils % 64.8 % (37.0-80.0); Platelet Count 235 K/mm3 (142-424); Red Blood Count 3.99 M/mm3 (4.20-5.40); Red Cell Distribution Width 13.7 % (11.5-17.5); White Blood Count 7.4 K/mm3 (4.8-10.8)
[2019-02-22 10:17] LABS: Alanine Aminotransferase 23 U/L (12-78); Albumin Level 3.2 gm/dL (3.4-5.0); Alkaline Phosphatase 84 U/L (46-116); Anion Gap 10.7 mEq/L (5-15); Aspartate Amino Transferase 16 U/L (15-37); Bilirubin,Total 0.4 mg/dL (0.2-1.0); Blood Urea Nitrogen 16 mg/dL (7-18); Calcium 8.5 mg/dL (8.5-10.1); Carbon Dioxide 32 mmol/L (21.0-32.0); Chloride 103 mmol/L (98-107); Chol/HDL Ratio 3.6 (1-3.5); Cholesterol 138 mg/dL (140-200); Creatinine,Serum 0.94 mg/dL (0.55-1.02); Estimated Glomerular Filt Rate 63 ml/min (>60); GFR (African American) 76 ML/MIN (>60); Globulin 3.1 gm/dl (1.3-3.2); Glucose 129 mg/dL (74-106); HDL Cholesterol 38 mg/dL (29-89); LDL Cholesterol 35 mg/dL (0-130); Potassium 4.7 mmoL/L (3.5-5.1); Sodium 141 mmol/L (136-145); T4 (Thyroxine) 8.1 ug/dl (4.7-13.3); Thyroid Stimulating Hormone 2.86 uIU/ml (0.358-3.740); Total Protein,Serum 6.3 gm/dL (6.4-8.2); Triglycerides 326 mg/dL (30-200); VLDL Cholesterol 65 mg/dL (0-40)
[2019-02-22 11:49] LABS: Hemoglobin A1C 6.7 % (0.0-7.0)
== END ==
PROVIDERS: Visit Provider Family Medicine
DX: E78.5 Hyperlipidemia, unspecified (principal); E03.9 Hypothyroidism, unspecified; E11.9 Type 2 diabetes mellitus without complications; Z79.84 Long term (current) use of oral hypoglycemic drugs
CPT/HCPCS: 36415; 80053; 80061; 83036; 84436; 84443; 85025

== ENCOUNTER → 2019-08-20 13:07 | Outpatient (CLI) | payer BC, SELFPAY ==
[2019-08-20 15:47] LABS: Alanine Aminotransferase 33 U/L (12-78); Albumin Level 3.5 gm/dL (3.4-5.0); Albumin/Globulin Ratio 1.2 (1.1-1.8); Alkaline Phosphatase 81 U/L (46-116); Anion Gap 11.3 mEq/L (5-15); Aspartate Amino Transferase 39 U/L (15-37); Bilirubin,Total 0.4 mg/dL (0.2-1.0); Blood Urea Nitrogen 11 mg/dL (7-18); Calcium 9.3 mg/dL (8.5-10.1); Carbon Dioxide 31 mmol/L (21.0-32.0); Chloride 104 mmol/L (98-107); Chol/HDL Ratio 3.9 (1-3.5); Cholesterol 155 mg/dL (140-200); Creatinine,Serum 0.85 mg/dL (0.55-1.02); Estimated Glomerular Filt Rate 70 ml/min (>60); Free T4 (Free Thyroxine) 1.07 ng/dl (0.76-1.46); GFR (African American) 85 ML/MIN (>60); Globulin 2.9 gm/dl (1.3-3.2); Glucose 101 mg/dL (74-106); HDL Cholesterol 40 mg/dL (29-89); Potassium 4.3 mmoL/L (3.5-5.1); Sodium 142 mmol/L (136-145); Thyroid Stimulating Hormone 1.12 uIU/ml (0.358-3.740); Total Protein,Serum 6.4 gm/dL (6.4-8.2)
[2019-08-20 15:48] LABS: Triglycerides 430 mg/dL (30-200)
== END ==
PROVIDERS: Visit Provider Nurse Practitioner Family
DX: E03.9 Hypothyroidism, unspecified (principal); I10 Essential (primary) hypertension; E78.1 Pure hyperglyceridemia
CPT/HCPCS: 36415; 80053; 80061; 84439; 84443

== ENCOUNTER → 2019-08-26 14:22 | Outpatient (POV) | payer BC, SELFPAY | PROVIDERS: Visit Provider Dermatology | DX: Z00.00 Encounter for general adult medical examination without abnormal findings (principal) ==

== ENCOUNTER → 2019-10-30 09:09 | Outpatient (CLI) | payer BC, SELFPAY ==
[2019-10-30 09:46] LABS: Basophils % 0.5 % (0.1-2.0); Eosinophils # 0.3 K/mm3 (0.0-0.4); Eosinophils % 3.4 % (0.1-12.0); Hemoglobin 11.8 g/dL (12.2-16.2); Lymphocytes # 1.8 K/mm3 (0.7-4.5); Lymphocytes % 24.1 % (10-50); Mean Corpuscular Hemoglobin 29.8 pg (27.0-31.2); Mean Platelet Volume 8.2 fl (7.4-10.4); Monocytes # 0.3 K/mm3 (0.1-1.0); Monocytes % 4.3 % (1.7-9.3); Neutrophils # 5.1 K/mm3 (1.8-7.8); Neutrophils % 67.6 % (37.0-80.0); Platelet Count 296 K/mm3 (142-424); Red Blood Count 3.98 M/mm3 (4.20-5.40); Red Cell Distribution Width 13.5 % (11.5-17.5); White Blood Count 7.6 K/mm3 (4.8-10.8)
[2019-10-30 12:09] LABS: Iron 73 ug/dL (37-170)
[2019-10-31 11:27] LABS: Vitamin B12 693 pg/mL (232-1245); Vitamin D 25 Hydroxy 45.5 ng/mL (30.0-100.0)
== END ==
PROVIDERS: Visit Provider Family Medicine
DX: D64.9 Anemia, unspecified (principal); E55.9 Vitamin D deficiency, unspecified
CPT/HCPCS: 36415; 82607; 82652; 82746; 83540; 85025

== ENCOUNTER → 2019-11-05 08:30 | Outpatient (CLI) | payer BC, SELFPAY ==
--- NOTE | 2019-11-05 08:32 | CT_ITS ---
PROCEDURE: CT ABDOMEN PELVIS WO CON CLINICAL INDICATION: LOW ABD PAIN Lower abdominal pain, blood in stool COMPARISON: No exams were available for comparison TECHNIQUE: Axial images obtained with sagittal and coronal reformats. All CT scans at the facility use one or more dose reduction, viz: automated exposure control, ma/kV adjustment per patient size (including targeted exams where dose is matched to indication, i.e. head), or iterative reconstruction technique. FINDINGS: LOWER THORAX: There is a 5 mm noncalcified nodule in the right middle lobe ABDOMEN & PELVIS: Post cholecystectomy change. No focal liver lesion is evident. The spleen, adrenal glands, and pancreas have an unremarkable unenhanced appearance. There is a 3 mm nonobstructing stone in the lower pole of the left kidney with suspected small left parapelvic renal cyst inferiorly at 12 mm. No evidence of appendicitis. There is a mild amount of retained colonic feces. There is diverticulosis of the descending and sigmoid colon but no evidence of diverticulitis. Lobular cystic area noted in the left pelvic region and may represent an ovarian cyst measuring 5.2 by 3.4 cm. Pelvic ultrasound may provide further evaluation this is slightly more anterior than expected location of the ovaries from the uterus approximately 5 cm from the left adnexal region. And enlarged hypodense lymph node is an additional consideration. The IMPRESSION: 1. Mild colonic diverticulosis. No evidence of diverticulitis. 2. 5 cm cystic lesion in the left lower pelvic area possibly related to an ovarian cyst but somewhat displaced from the adnexal region. Suggest pelvic ultrasound for confirmation. 3. Noncalcified 5 mm right middle lobe nodule. Consider six-month follow-up to confirm stability Dictated by: Sundar Nathan MD 11/06/2019 08:41 Electronically signed by Sundar Nathan MD in [facility] 11/06/2019 08:41
== END ==
PROVIDERS: PCP Family Medicine; Visit Provider Family Medicine
DX: R10.30 Lower abdominal pain, unspecified (principal); K92.1 Melena
CPT/HCPCS: 74176

== ENCOUNTER → 2019-11-19 14:12 | Outpatient (CLI) | payer BC, SELFPAY ==
--- NOTE | 2019-11-19 14:18 | US_ITS ---
PROCEDURE: US TRANSVAGINAL CLINICAL INDICATION: LT PELVIC MASS ON CT COMPARISON: CT ABDOMEN PELVIS WO CON from 11/05/2019 FINDINGS: The patient reports having had a prior hysterectomy. There is a prominent vaginal stump present with nabothian cysts noted. There is a cystic lesion in the left adnexa at 5 x 3 cm consistent with an ovarian cyst IMPRESSION: 5 x 3 cm complex left ovarian cyst. Recommend 3 month follow-up to confirm stability. Dictated by: Sundar Nathan MD 11/21/2019 10:00 Electronically signed by Sundar Nathan MD in [place] 11/21/2019 10:00
== END ==
PROVIDERS: PCP Family Medicine; Visit Provider Family Medicine
DX: R19.00 Intra-abdominal and pelvic swelling, mass and lump, unspecified site (principal)
CPT/HCPCS: 76830

== ENCOUNTER → 2019-11-26 08:24 | Outpatient (CLI) | payer BC, SELFPAY ==
[2019-11-26 08:27] LABS: Adenovirus,PCR Not Detected (NotDetected); Bordetella Pertussis Not Detected (NotDetected); Chlamydophila Pneumoniae, PCR Not Detected (NotDetected); Coronavirus 19, PCR Not Detected (NotDetected); Coronavirus 229E Not Detected (NotDetected); Coronavirus NL63 Not Detected (NotDetected); Coronavirus OC43 Not Detected (NotDetected); Coronovirus HKU1,PCR Not Detected (NotDetected); Human Metapneumovirus Not Detected (NotDetected); Influenza A, PCR Not Detected (NotDetected); Influenza AH1, 2009 Not Detected (NotDetected); Influenza AH1, PCR Not Detected (NotDetected); Influenza AH3,PCR Not Detected (NotDetected); Influenza B, PCR Not Detected (NotDetected); Mycoplasma Pneumoniae, PCR Not Detected (NotDected); Parainfluenza 1, PCR Not Detected (NotDetected); Parainfluenza 2, PCR Not Detected (NotDetected); Parainfluenza 3, PCR Not Detected (NotDetected); Parainfluenza 4, PCR Not Detected (NotDetected); Respiratory Syncytial Virus Not Detected (NotDetected); Rhinovirus/Enterovirus Not Detected (NotDetected)
== END ==
PROVIDERS: Visit Provider Internal Medicine Gastroenterology
DX: Z01.818 Encounter for other preprocedural examination (principal)
CPT/HCPCS: 87581; 87633; 87798

== ENCOUNTER 2019-11-28 08:17 | Day surgery (SDC) | payer BC, SELFPAY ==
--- NOTE | 2019-11-25 09:39 | SUR.PREOP ---
11/25/2019 @ 9893--PHONE CALL MADE TO PATIENT. PATIENT UNDERSTANDS THAT LAB WORK AND COVID TESTING NEEDS TO BE COMPLETED @ 0830 ON 11/26/2019. PATIENT UNDERSTANDS IF LAB WORK AND COVID-19 TESTS ARE NOT COMPLETED BY 12PM ON THAT DATE, THE SURGERY SCHEDULED WILL BE CANCELLED AND RESCHEDULED FOR ANOTHER TIME.
[2019-11-25 12:23] VITALS: BMI 33.8
[2019-11-28 08:31] VITALS: BP 125/82; PULSE 109; RESP 18; TEMP 36.7; O2SAT 98
[2019-11-28 09:24] VITALS: O2SAT 97
--- NOTE | 2019-11-28 09:26 | P.PN_ITS ---
[facility] Anesthesia Checklist - Patient Identification Patient Identification: Arm Band, Verbal (Name & ) - Structural Data Admitted From: Home Planned Operative Procedure/s: colon Consent for Planned Operative Procedure(s) Verified: Yes Verified Documents: History and Physical - NPO Status Verified Time NPO: 00:00 - Additional verifications Patient : No Anesthesia Reactions: No Hx Blood Transfusions: No Blood Transfusion Reaction: No Cephalosporin Allergy: No Previous Colonoscopy: No - Cardiovascular Assessment Heart Sounds: S1 & S2 Pulse Strength: Baseline Pulse Rhythm: Regular Peripheral Edema: No - Airway Assessment C-Spine Mobility Assessed: Yes TMJ Mobility Assessed: Yes Dentition: Good Dentition - Neurological Assessment Level of Consciousness: Awake, Alert, Appropriate Hx Seizures: No Numbness or tingling in extremities: No - Anesthesia Plan Anesthesia Risk discussed: Yes Anesthesia Plan: Verified ASA Class: II Anesthesia Type: MAC [facility] History I have reviewed the patient's past medical history: Yes Medical History: Reports:: Anxiety, Depression, Diabetes Mellitus Type 2, Gastroesophageal Reflux Disease(GERD), Hiatal Hernia, Hyperlipidemia, Hypertension Denies:: Cancer, Chronic Obstructive Pulmonary Disease (COPD), Diabetes Mellitus Type 1, Internal Pacemaker, Migraine, MRSA, Seizures *Have you ever received a pneumonia vaccine?: No *Have you received a flu vaccine this season?: No Other Medical History: Reports: Hypothyroidism, Other (allergies; borderline diabetes. He said it wasn't diabetes but close ) Anesthesia experience/problems:: none Other Surgeries: Yes: Appendectomy, Cholecystectomy, Hernia Repair, Other (hysterectom). No: Pacemaker Amputation: No Fractures: No - *Social History Educational Level: Completed High School Smoking Status: Never smoker Alcohol Intake: never Substance Use Type: other *Occupational Status:: unemployed Housing: house Household Members: spouse *Travel in the last 8 weeks: None - Psychiatric History Pschychiatric History:: Reports:: Anxiety, Depression Family Hx:: Diabetes, Heart Attack
--- NOTE | 2019-11-28 09:52 | P.PCN_ITS ---
[facility] Procedure Note Procedure Note:: Colonoscopy Procedure Report: Colonoscopy with cold snare polypectomy Endoscopist: Vignesh Moreno II, MD Referring physician: Geovanny Beck MD Date of Procedure: November 28, 2019 Equipment: Olympus 180 variable stiffness pediatric colonoscope Sedation: MAC sedation Indication: Mrs. Mariscal is a 54-year-old female who is here for diagnostic colonoscopy. The patient had diverticulitis 10 to 15 years ago. She had a recurrent bout of diverticulitis approximately 3 weeks ago. Her CAT scan of the abdomen and pelvis showed uncomplicated diverticulitis and a 5 cm cystic lesion in the left adnexa. She previously had hysterectomy and bilateral salpingo- oophorectomy. The patient does state that her diverticulitis symptoms have improved with antibiotics. She was also placed on MiraLAX. The patient did have some bright red rectal bleeding and left lower quadrant abdominal pain. She reported no fever or chills. She has regular bowel function. She does have some obstipation with excessive wiping. She reports no family history of colon cancer. This is her first colonoscopy. Procedure: Prior to the procedure, a history and physical exam was performed, and patient's medications and allergies were reviewed. The risks, benefits and alternatives of the sedation and procedure were discussed with the patient. All questions were answered and informed consent was obtained. The patient was brought to the procedure room. Patient identification and proposed procedure were verified by the physician and the nurse. The patient was placed in a left lateral decubitus position and the scope was passed under direct vision. Throughout the procedure, the patient's blood pressure, pulse, and oxygen saturations were monitored continuously. The colonoscopy was accomplished without difficulty. The patient tolerated the procedure well. Findings: On digital rectal examination there was normal rectal tone. There were no external hemorrhoids. The colonoscope was introduced through the anal canal to the rectum and advanced to the cecum. The ileocecal valve and appendiceal orifice were identified. The scope was advanced a short distance into the ileum which appeared grossly normal. The scope was then withdrawn into the colon. The cecum, ascending and transverse colon and mucosa were grossly normal. There were scattered diverticuli throughout the descending and sigmoid colon (LEFT colon). There were 2 diminutive 3 mm polyps in the rectosigmoid junction removed via cold snare polypectomy. The rectum itself was normal. Upon retroflexion within the rectum there were grade 1 internal hemorrhoids. The preparation was excellent throughout with [place] Preparation Score of 9. The cecal time was 12 minutes. Impression: 1. Diminutive rectosigmoid polyps x2 (3 mm) 2. Left-sided diverticulosis 3. Grade 1 internal hemorrhoids Plan: I would encourage bulk fiber supplementation and dietary measures. I will follow-up the polyp histology and recommend repeat screening/surveillance colonoscopy in 7 to 10 years based upon pathology.
[2019-11-28 09:55] VITALS: BP 123/73; PULSE 95; RESP 16; TEMP 36.2; O2SAT 100
[2019-11-28 10:10] VITALS: BP 143/74; PULSE 91; RESP 16; O2SAT 98
[2019-11-28 10:15] LABS: POC Glucose,Bedside 141 (70-110)
[2019-11-28 10:24] VITALS: BP 132/79; PULSE 85; RESP 16; O2SAT 100
[2019-11-28 10:58] VITALS: BP 154/94; PULSE 88; RESP 16; O2SAT 100
== END 2019-11-28 10:58 | disposition home or self-care (01) ==
LOC: OUTP 08:18
PROVIDERS: PCP Family Medicine; Visit Provider Internal Medicine Gastroenterology
PROC: 0DJD8ZZ Inspection of Lower Intestinal Tract, Via Natural or Artificial Opening Endoscopic (ICD-10-PCS; CPT 45378; principal; 2019-11-28 09:30)
DX: Z12.11 Encounter for screening for malignant neoplasm of colon (principal); D12.7 Benign neoplasm of rectosigmoid junction; K64.0 First degree hemorrhoids; Z79.890 Hormone replacement therapy; Z79.899 Other long term (current) drug therapy; Z88.8 Allergy status to other drugs, medicaments and biological substances
CPT/HCPCS: 45385; 82962

== ENCOUNTER → 2020-01-01 08:11 | Outpatient (CLI) | payer BC, SELFPAY ==
--- NOTE | 2020-01-01 08:11 | US_ITS ---
PROCEDURE: US PELVIC CLINICAL INDICATION: pelvic pain/ Lt. ovarian cyst COMPARISON: CT ABDOMEN PELVIS WO CON from 11/05/2019 US TRANSVAGINAL from 11/19/2019 FINDINGS: Prior hysterectomy. There is a 4 x 2 cm complex cystic area in the left adnexa once again noted. This is not significantly changed. IMPRESSION: No change complex left adnexal cystic lesion which may be due to ovarian remnant. Dictated by: Sundar Nathan MD 01/01/2020 17:57 Electronically signed by Sundar Nathan MD in [place] 01/01/2020 17:57
== END ==
PROVIDERS: PCP Family Medicine; Visit Provider Nurse Practitioner Obstetrics & Gynecology
DX: R10.2 Pelvic and perineal pain (principal); N83.202 Unspecified ovarian cyst, left side
CPT/HCPCS: 76856

== ENCOUNTER → 2020-07-15 11:16 | Outpatient (CLI) | payer BC, SELFPAY ==
--- NOTE | 2020-07-15 11:22 | XR_ITS ---
PROCEDURE: XR CHEST PORTABLE Referring Doctor: Janeth Peña Patient Age:55Y CLINICAL HISTORY: COVID OUTPATIENT Wheezing body aches COMPARISON: CR CXR2V XR chest 2V from 11/19/2018 FINDINGS: AP portable upright chest compared to 11/19/2018 No prominent findings no dense focal consolidation. However there is subtle coarsening of the markings and interstitial pattern at the right infrahilar region right base. This may reflect a subtle early infiltrate. Will warrant follow-up To lesser degree there is some subtle stippled faint density at the left lower lobe. Which is slight more evident than previous study. Heart is upper normal in size but liane and mediastinal structures satisfactory. Chest wall unremarkable IMPRESSION: Question and suspect a very subtle hazy infiltrate at the right lung base. . Follow-up suggested if respiratory symptoms progress Only question very subtle stippled infiltrate left lung base-equivocal on left Heart upper normal in size Dictated by: Feng Ames MD 07/15/2020 12:41 Feng Ames MD in [place] 07/15/2020 12:41
[2020-07-15 12:55] LABS: Basophils % 0.6 % (0.1-2.0); Eosinophils # 0.2 K/mm3 (0.0-0.4); Eosinophils % 3.1 % (0.1-12.0); Hematocrit 34.5 % (37.0-47.0); Hemoglobin 11.4 g/dL (12.2-16.2); Lymphocytes # 1.1 K/mm3 (0.7-4.5); Lymphocytes % 23.4 % (10-50); Mean Corpuscular HGB Conc 32.9 g/dL (31.8-35.4); Mean Corpuscular Hemoglobin 30.7 pg (27.0-31.2); Mean Corpuscular Volume 93.4 fl (81-99); Mean Platelet Volume 8.2 fl (7.4-10.4); Monocytes # 0.4 K/mm3 (0.1-1.0); Monocytes % 7.8 % (1.7-9.3); Neutrophils # 3.2 K/mm3 (1.8-7.8); Neutrophils % 65.2 % (37.0-80.0); Platelet Count 226 K/mm3 (142-424); Red Blood Count 3.69 M/mm3 (4.20-5.40); Red Cell Distribution Width 13.9 % (11.5-17.5); White Blood Count 4.9 K/mm3 (4.8-10.8)
== END ==
PROVIDERS: PCP Physician Assistant; Visit Provider Physician Assistant
DX: Z20.828 Contact with and (suspected) exposure to other viral communicable diseases (principal); U07.1 COVID-19
CPT/HCPCS: 36415; 71045; 85025; 87275; 87276; U0003

== ENCOUNTER → 2020-08-10 08:54 | Outpatient (CLI) | payer BC, SELFPAY ==
[2020-08-10 10:00] LABS: Hemoglobin A1C 7.2 % (4.0-6.0)
[2020-08-10 10:12] LABS: Chol/HDL Ratio 5.3 (1-3.5); Cholesterol 239 mg/dl (140-200); HDL Cholesterol 45 mg/dl (40-60); Iron 121 ug/dL (37-170)
[2020-08-10 10:13] LABS: Basophils # 0.1 K/mm3 (0-0.2); Basophils % 0.7 % (0.1-2.0); Eosinophils # 0.3 K/mm3 (0.0-0.4); Eosinophils % 3.3 % (0.1-12.0); Hematocrit 38.3 % (37.0-47.0); Hemoglobin 12.6 g/dL (12.2-16.2); Lymphocytes # 2.4 K/mm3 (0.7-4.5); Lymphocytes % 28.3 % (10-50); Mean Corpuscular HGB Conc 32.8 g/dL (31.8-35.4); Mean Corpuscular Hemoglobin 30.3 pg (27.0-31.2); Mean Corpuscular Volume 92.4 fl (81-99); Mean Platelet Volume 8.3 fl (7.4-10.4); Monocytes # 0.4 K/mm3 (0.1-1.0); Monocytes % 4.8 % (1.7-9.3); Neutrophils # 5.3 K/mm3 (1.8-7.8); Neutrophils % 62.9 % (37.0-80.0); Platelet Count 270 K/mm3 (142-424); Red Blood Count 4.14 M/mm3 (4.20-5.40); White Blood Count 8.5 K/mm3 (4.8-10.8)
[2020-08-10 10:16] LABS: Triglycerides 495 mg/dl (30-150)
[2020-08-10 11:19] LABS: Vitamin B12 378 pg/mL (239-931)
[2020-08-10 11:20] LABS: Folate > 20.00 ng/mL
[2020-08-15 22:02] LABS: 1,25 Dihydroxy Vitamin D 36 pg/mL (.); 1,25-Dihydroxy, Vitamin D-2 <10 pg/mL (.); 1,25-Dihydroxy, Vitamin D-3 35 pg/mL (.)
== END ==
PROVIDERS: Visit Provider Family Medicine
DX: E11.9 Type 2 diabetes mellitus without complications (principal); E78.5 Hyperlipidemia, unspecified; E55.9 Vitamin D deficiency, unspecified; D64.9 Anemia, unspecified
CPT/HCPCS: 36415; 80061; 82607; 82652; 82746; 83036; 83540; 85025

== ENCOUNTER → 2020-10-14 14:25 | Outpatient (CLI) | payer BC, SELFPAY ==
[2020-10-14 16:31] LABS: Alanine Aminotransferase 28 U/L (12-78); Albumin Level 4.6 g/dl (3.5-5.0); Albumin/Globulin Ratio 1.6 (1.1-1.8); Alkaline Phosphatase 77 U/L (38-126); Anion Gap 14.5 mEq/L (5-15); Aspartate Amino Transferase 34 U/L (14-36); Bilirubin,Total 0.7 mg/dl (0.2-1.3); Blood Urea Nitrogen 24 mg/dl (7-17); Calcium 10.2 mg/dl (8.4-10.2); Carbon Dioxide 28 mmol/L (22.0-30.0); Chloride 101 mmol/L (98-107); Chol/HDL Ratio 6.4 (1-3.5); Cholesterol 274 mg/dl (140-200); Estimated Glomerular Filt Rate 43 ml/min (>60); GFR (African American) 52 ML/MIN (>60); Globulin 2.8 g/dL (1.3-3.2); Glucose 116 mg/dl (74-100); HDL Cholesterol 43 mg/dl (40-60); Potassium 4.5 mmoL/L (3.5-5.1); Sodium 139 mmol/L (136-145); Total Protein,Serum 7.4 g/dl (6.3-8.2); Triglycerides 321 mg/dl (30-150); VLDL Cholesterol 64 mg/dL (0-40)
[2020-10-14 16:42] LABS: Direct LDL Cholesterol 153.96 mg/dL (100-129)
[2020-10-14 16:58] LABS: Hemoglobin A1C 6.1 % (4.0-6.0)
== END ==
PROVIDERS: Visit Provider Family Medicine
DX: E11.9 Type 2 diabetes mellitus without complications (principal); E78.5 Hyperlipidemia, unspecified; I10 Essential (primary) hypertension
CPT/HCPCS: 36415; 80053; 80061; 83036

== ENCOUNTER 2021-03-09 19:20 | Emergency (ER) | payer BC, SELFPAY ==
[2021-03-09 21:02] VITALS: BP 135/69; PULSE 96; RESP 19; TEMP 36.6; O2SAT 100; BMI 27.1
--- NOTE | 2021-03-09 21:13 | HMH.EDUTC ---
[facility] [place] Clinical Impression: Burning with urination Disposition: Home, Self-Care Condition on Discharge: Good Instructions: Phenazopyridine Additional Instructions: Make sure you are drinking plenty of fluids Take medication as prescribed Follow up your Family Doctor if symptoms continue for re-evaluation Straight to ER if any life threatening symptoms Prescriptions: Phenazopyridine HCl [Pyridium 200mg Tablet] 200 pow PO TID #6 tab Transmission Status: Pending to [id number] Referrals: Eric Beck MD [Primary Care Provider] - 03/09/21 9:25 pm Time of Disposition: 21:25 Medical Decision Making - Ridge Inquiry Pt receiving controlled substance: No Ridge was queried for this patient: No Vital Signs: 03/09/21 21:02 Temperature 98 F Temperature Source Oral Pulse Rate [Left] 96 H Respiratory Rate 19 Blood Pressure [Right Arm] 135/69 Blood Pressure Mean [Right Arm] 91 02 Sat by Pulse Oximetry 100 - Lab Data Lab results reviewed: Yes: I reviewed the patient's lab results. Medical Decision Narrative: Declined xray of L spine due to pain on and off in lower back area [facility] [place] HPI - General Stated complaint: painful and frequent urination, weak Time Seen by Provider: 03/09/21 21:13 Mode of Arrival: Ambulatory Source of Information: Patient Limitations: No Limitations Description of Symptoms (Recalled from Triage Doc. by RN): pt c/o painful and frequent urination with lower back pain HEENT Symptoms (Recalled from RN notes): No Resp Symptoms (Recalled from RN notes): No Skin Symptoms (Recalled from RN notes): No MS Symptoms (Recalled from RN notes): Yes (lower back pain) Functional Status (Recalled from RN notes): na - History of Present Illness Provider Complaint: Patient states that she has history of UTI states that she noticed she was having some pain when she would urinated and feeling a little achy States that she does this when she gets a UTI and she wanted to get checked before it got too bad states that also she feels like she has been urinating more frequently than usual - Related Data Home Medications Medication Instructions Recorded Confirmed Fluoxetine HCl [Prozac] 40 mg PO DAILY 11/19/18 01/08/20 Icosapent Ethyl [Vascepa] 1 gm PO BID 11/19/18 01/08/20 Lisinopril/Hydrochlorothiazide 1 tab PO DAILY 11/19/18 01/08/20 [Lisinopril-Hctz 20-25 mg Tab] Montelukast Sodium [Singulair 10mg 10 mg PO PM 11/19/18 01/08/20 tablet] Rosuvastatin Calcium [Crestor 40mg 40 mg PO DAILY 11/19/18 01/08/20 Tablets] Zaleplon [Sonata] 10 mg PO HS 11/19/18 01/08/20 atenoloL [Atenolol 25mg Tab] 25 mg PO DAILY 11/19/18 01/08/20 estradioL [Estrace 1mg tablet] 1 mg PO DAILY 11/19/18 01/08/20 Dulaglutide [Trulicity] 0.75 mg SQ DAILY 11/25/19 01/08/20 levofloxacin 500 mg tablet 500 mg PO tab 01/08/20 01/08/20 polyethylene glycol 3350 17 PO 01/08/20 01/08/20 gram/dose oral powder Previous Rx's Medication Instructions Recorded Ondansetron [Zofran 4mg ODT] 4 mg PO Q8HP PRN #20 tab.rapdis 08/20/19 Phenazopyridine HCl [Pyridium 200 pow PO TID #6 tab 03/09/21 200mg Tablet] Allergies Allergy/AdvReac Type Severity Reaction Status Date / Time Penicillins Allergy Verified 01/08/20 08:59 sulfamethoxazole Allergy Verified 01/08/20 08:59 [From Bactrim] trimethoprim [From Bactrim] Allergy Verified 01/08/20 08:59 - Worker's Comp Is this a Worker's Comp case?: No [facility] History - Hepatitis A Screen Drug use history?: No High risk sexual behaviors?: No History of sexually transmitted infection?: No Currently employed?: No Childcare worker?: No Do you have indoor plumbing?: Yes Do you have electricity?: Yes Attestation statement:: This patient has been screened for Hepatitis A risk factors. Medical History: Reports:: Anxiety, Depression, Diabetes Mellitus Type 2, Gastroesophageal Reflux Disease(GERD), Hiatal Hernia, Hyperlipidemia, H
[2021-03-09 21:25] VITALS: BP 135/69; PULSE 96; RESP 19; TEMP 37
[2021-03-09 22:27] LABS: Apearance,Urine Clear (Clear); Bilirubin,Urine Negative (Negative); Blood, Urine Trace (Negative); Color,Urine Yellow (Yellow); Glucose,Urine (UA) Negative (Negative); Ketones,Urine Negative (Negative); PH,Urine 6.5 (5.0-8.5); Protein,Urine Negative (Negative); Specific Gravity, Urine 1.025 (1.005-1.030); UTC Leukocyte Esterase,Urine Negative (Negative); UTC Nitrate,Urine Negative (Negative); Urobilinogen,Urine 0.2 EU/dl (0.2)
== END 2021-03-09 21:37 | disposition home or self-care (01) ==
PROVIDERS: Emergency Provider Nurse Practitioner; PCP Family Medicine
DX: R30.0 Dysuria (principal); F41.8 Other specified anxiety disorders; I10 Essential (primary) hypertension; E03.9 Hypothyroidism, unspecified; E78.5 Hyperlipidemia, unspecified; E11.9 Type 2 diabetes mellitus without complications; K21.9 Gastro-esophageal reflux disease without esophagitis; Z88.0 Allergy status to penicillin
CPT/HCPCS: 81003; 99202; G0463

== ENCOUNTER 2021-03-18 18:41 | Emergency (ER) | payer BC, SELFPAY ==
[2021-03-18 18:42] VITALS: BP 142/77; PULSE 103; RESP 18; TEMP 36.8; O2SAT 100; BMI 31.4
[2021-03-18 19:00] VITALS: BP 157/76; PULSE 102; O2SAT 99
[2021-03-18 19:01] LABS: Microscopic, Urine URINE MICROSCOPIC (MICROSCOPIC)
[2021-03-18 19:04] LABS: Appearance,Urine CLEAR (Clear); Bilirubin,Urine Negative (Negative); Blood, Urine 1+ (Negative); Color,Urine ORANGE (Yellow); Glucose,Urine (UA) Negative (Negative); Ketones,Urine Negative (Negative); Nitrate,Urine POSITIVE (Negative); PH,Urine 5.5 (5.0-8.5); Protein,Urine 1+ (Negative); Specific Gravity, Urine >= 1.030 (1.005-1.030)
[2021-03-18 19:07] LABS: Leukocyte Esterase,Urine Negative (Negative); RBC,Urine 20-50 #/hpf (0-3)
--- NOTE | 2021-03-18 19:29 | CT_ITS ---
PROCEDURE INFORMATION: Exam: CT Abdomen And Pelvis Without Contrast Exam date and time: 03/18/2021 7:29 PM Age: 56 years old Clinical indication: Abdominal pain; Patient HX: Left flank and genital pain with HX of renal stones and constant feeling to urinate. ; Additional info: Concern for kidney stone TECHNIQUE: Imaging protocol: Computed tomography of the abdomen and pelvis without contrast. Radiation optimization: All CT scans at this facility use at least one of these dose optimization techniques: automated exposure control; mA and/or kV adjustment per patient size (includes targeted exams where dose is matched to clinical indication); or iterative reconstruction. COMPARISON: CT ABDOMEN PELVIS WO CON 11/05/2019 8:35 AM FINDINGS: Lungs: Dependent bilateral lung base opacities favor atelectasis. Liver: Normal. No mass. Gallbladder and bile ducts: There are surgical clips within the gallbladder fossa. Pancreas: Normal. No ductal dilation. Spleen: Normal. No splenomegaly. Adrenal glands: Normal. No mass. Kidneys and ureters: Multiple 2 mm calcific densities at the distal left ureter best seen on image 47 of series 601 without hydroureter or hydronephrosis. No hydronephrosis. Stomach and bowel: Diverticula are scattered throughout the colon without inflammatory changes. Appendix: The appendix is not visualized with surgical changes at the cecum suggesting appendectomy. Intraperitoneal space: Unremarkable. No free air. No significant fluid collection. Vasculature: Mild calcific atherosclerotic disease is scattered throughout the abdominal aorta without aneurysmal dilatation. Lymph nodes: Unremarkable. No enlarged lymph nodes. Urinary bladder: Unremarkable as visualized. Reproductive: Unremarkable as visualized. Bones/joints: Mild loss of intervertebral disc space with degenerative changes at L2 through S1. No acute fracture. Soft tissues: Normal. IMPRESSION: Distal left 2 mm ureterolithiasis without significant hydroureter, or hydronephrosis.
[2021-03-18 19:30] VITALS: BP 134/68; PULSE 97; O2SAT 96
--- NOTE | 2021-03-18 19:44 | HMH.EDGENADL ---
ED Disposition Condition on Discharge: Good - Critical Care Critical Care Time: No <Dawit Lugo - Last Filed: 03/18/21 19:44> <Ryder Fischer - Last Filed: 03/18/21 20:41> Clinical Impression: Suprapubic pain, acute, Renal colic on left side UTI (urinary tract infection) Qualifiers: Urinary tract infection type: site unspecified Hematuria presence: without hematuria Qualified Code(s): N39.0 - Urinary tract infection, site not specified Disposition: Home, Self-Care Instructions: DI for Urinary Tract Infection (UTI), DI for Kidney Stones Additional Instructions: fluids and use meds and see pcp for follow up Prescriptions: Tamsulosin HCl [Flomax 0.4mg capsule] 0.4 mg PO HS #10 cap Transmission Status: Pending to [facility] levoFLOXacin [Levaquin 500mg tab] 500 mg PO DAILY #7 tab Transmission Status: Pending to [facility] Referrals: Eric Beck MD [Primary Care Provider] - Attestation: On 03/18/21, the high probability of a clinically significant, sudden or life threatening deterioration of the following system(s) required my full and direct attention, intervention and personal management. The time I documented below is in addition to time spent performing reported procedures but includes the following listed in this critical care notation. Medical Decision Making - Ridge Inquiry Pt receiving controlled substance: No <BrittneyDawit - Last Filed: 03/18/21 19:44> - Lab Data Lab results reviewed: Yes: I reviewed the patient's lab results. Result diagrams: 03/18/21 19:10 - CT Data CT Scan: Abdomen, Pelvis Time Received: 20:[address] Reviewed: Yes: I have viewed the radiologist's interpretation Preliminary Findings: Abnormal (2 mm stone lt ) <Ryder Fischer - Last Filed: 03/18/21 20:41> Vital Signs: 03/18/21 18:42 03/18/21 19:00 03/18/21 19:30 Temperature 98.2 F Temperature Source Oral Pulse Rate 102 H 97 H Pulse Rate [Right] 103 H Respiratory Rate 18 Blood Pressure 157/76 H 134/68 Blood Pressure [Right Arm] 142/77 H Blood Pressure Mean [Right Arm] 98 02 Sat by Pulse Oximetry 100 99 96 Oxygen Delivery Method Room Air Room Air Room Air 03/18/21 20:18 03/18/21 20:30 Temperature Temperature Source Pulse Rate 89 95 H Pulse Rate [Right] Respiratory Rate Blood Pressure 138/64 148/71 H Blood Pressure [Right Arm] Blood Pressure Mean [Right Arm] 02 Sat by Pulse Oximetry 96 100 Oxygen Delivery Method Room Air Room Air - Lab Data Lab Results 03/18/21 18:50: Urine Color [place], Urine Appearance Clear, Urine pH 5.5, Ur Specific [place] >= 1.030, Urine Protein 1+, Urine Glucose (UA) Negative, Urine Ketones Negative, Urine Blood 1+, Urine Nitrate Positive, Urine Bilirubin Negative, Urine Urobilinogen 2.0, Ur Leukocyte Esterase Negative, Urine RBC 20-50, Urine WBC 10-20 03/18/21 19:10: WBC 7.6, RBC 3.48 L, Hgb 11.1 L, Hct 33.9 L, MCV 97.4, MCH 31.9 H, MCHC 32.8, RDW 13.5, Plt Count 318, MPV 8.6, Neut % (Auto) 62.4, Lymph % (Auto) 27.7, [place] % (Auto) 4.0, Eos % (Auto) 4.5, Baso % (Auto) 1.3, Neut # (Auto) 4.7, Lymph # (Auto) 2.1, [place] # (Auto) 0.3, Eos # (Auto) 0.3, Baso # (Auto) 0.1 Orders (Tests/Meds): ORDERS Category Date Time Status Comprehensive Metabolic Panel Stat Lab 03/18/21 19:10 Received Urine Culture Stat Micro 03/18/21 18:50 Received Medical Decision Narrative: Patient is a 56-year-old female presents the ED today for suprapubic pain which has been present for several days worse in the last 24 hours. Differential diagnosis includes nephrolithiasis, bladder spasm, urinary tract infection. Given patient symptoms, concern for UTI versus nephrolithiasis versus bladder spasm we will obtain a CT scan without contrast for further evaluation and management. Patient will be given 15 mg of IM Toradol, we will obtain CBC CMP, will also get a urinalysis. Urinalysis obtained with white blood cells, 1+ RBCs
[2021-03-18 19:48] LABS: Basophils # 0.1 K/mm3 (0-0.2); Basophils % 1.3 % (0.1-2.0); Eosinophils # 0.3 K/mm3 (0.0-0.4); Eosinophils % 4.5 % (0.1-12.0); Hematocrit 33.9 % (37.0-47.0); Hemoglobin 11.1 g/dL (12.2-16.2); Lymphocytes # 2.1 K/mm3 (0.7-4.5); Lymphocytes % 27.7 % (10-50); Mean Corpuscular HGB Conc 32.8 g/dL (31.8-35.4); Mean Corpuscular Hemoglobin 31.9 pg (27.0-31.2); Mean Corpuscular Volume 97.4 fl (81-99); Mean Platelet Volume 8.6 fl (7.4-10.4); Monocytes # 0.3 K/mm3 (0.1-1.0); Neutrophils # 4.7 K/mm3 (1.8-7.8); Neutrophils % 62.4 % (37.0-80.0); Platelet Count 318 K/mm3 (142-424); Red Blood Count 3.48 M/mm3 (4.20-5.40); Red Cell Distribution Width 13.5 % (11.5-17.5); White Blood Count 7.6 K/mm3 (4.8-10.8)
[2021-03-18 20:18] VITALS: BP 138/64; PULSE 89; O2SAT 96
[2021-03-18 20:30] VITALS: BP 148/71; PULSE 95; O2SAT 100
[2021-03-18 20:33] LABS: Alanine Aminotransferase 24 U/L (12-78); Albumin Level 3.7 g/dl (3.5-5.0); Albumin/Globulin Ratio 1.3 (1.1-1.8); Alkaline Phosphatase 103 U/L (38-126); Anion Gap 10.4 mEq/L (5-15); Aspartate Amino Transferase 28 U/L (14-36); Bilirubin,Total 0.2 mg/dl (0.2-1.3); Blood Urea Nitrogen 16 mg/dl (7-17); Calcium 8.9 mg/dl (8.4-10.2); Carbon Dioxide 27 mmol/L (22.0-30.0); Chloride 105 mmol/L (98-107); Creatinine Clearance Estimated 69 mL/min (50-200); Estimated Glomerular Filt Rate 52 ml/min (>60); GFR (African American) 63 ML/MIN (>60); Globulin 2.9 g/dL (1.3-3.2); Glucose 143 mg/dl (74-100); Potassium 4.4 mmoL/L (3.5-5.1); Sodium 138 mmol/L (136-145); Total Protein,Serum 6.6 g/dl (6.3-8.2)
[2021-03-18 20:53] VITALS: BP 148/71; PULSE 95; RESP 16; TEMP 36.8; O2SAT 99
== END 2021-03-18 20:56 | disposition home or self-care (01) ==
PROVIDERS: Emergency Provider Student in an Organized Health Care Education/Training Program; PCP Family Medicine
DX: N30.00 Acute cystitis without hematuria (principal); B96.20 Unspecified Escherichia coli [E. coli] as the cause of diseases classified elsewhere; Z87.442 Personal history of urinary calculi; F41.8 Other specified anxiety disorders; E78.5 Hyperlipidemia, unspecified; K21.9 Gastro-esophageal reflux disease without esophagitis; I10 Essential (primary) hypertension; E03.9 Hypothyroidism, unspecified; Z79.899 Other long term (current) drug therapy
CPT/HCPCS: 74176; 80053; 81001; 85025; 87086; 87088; 87186; 99283

== ENCOUNTER 2021-04-03 12:56 | Emergency (ER) | payer BC, SELFPAY ==
[2021-04-03 14:50] LABS: Apearance,Urine Clear (Clear); Bilirubin,Urine Negative (Negative); Blood, Urine Trace (Negative); Color,Urine Yellow (Yellow); Glucose,Urine (UA) 500 (Negative); Ketones,Urine Negative (Negative); PH,Urine 5.5 (5.0-8.5); Protein,Urine Trace (Negative); UTC Leukocyte Esterase,Urine Negative (Negative); UTC Nitrate,Urine Negative (Negative); Urobilinogen,Urine 0.2 EU/dl (0.2)
[2021-04-03 15:15] VITALS: BP 108/72; PULSE 68; RESP 19; TEMP 37; O2SAT 98; BMI 31.1
--- NOTE | 2021-04-03 15:25 | HMH.EDUTC ---
[facility] [place] Disposition Clinical Impression: Viral syndrome Disposition: Home, Self-Care Condition on Discharge: Good Instructions: DI for Viral Syndrome, Benzonatate, DI for COVID-19 (Suspected or Confirmed ), Preventing the Spread of Coronavirus Discharge Instructions Additional Instructions: *Monitor Temp, Over the counter Motrin or Tylenol as directed/as needed Tylenol every 4 hours and Motrin every 6 hours (as long as your family doctor has told you that you can take it) for fever or pain. and straight to ER if unable to lower temp less than 101.0 after medication given *Warm salt water gargles may help to soothe the throat *Throat Lozenges *Warm fluids like tea with honey may help to soothe the throat *Sleep elevated *Humidifier/Vaporizer Follow up IMMEDIATELY for new or worsening symptoms or no Noticeable improvement over the next 48-72 hours. 911 for difficulty breathing or swallowing You were tested for today for COVID19 your test result should be back in the next 24-48 hours, You was given handout for instructions to log onto the [facility] Portal to view your result if you are unable to log on you may call You was given a handout with instructions for Self Quarantine and Self isolation for while you wait on test results and what to do if they are positive If you are positive the Health Dept will be contacting you also Make sure to take your Vitamins Vit. C Vit D and Zinc if you can take them Prescriptions: Benzonatate [Tessalon Perle 100mg Cap*] 100 mg PO TID PRN #30 cap PRN Reason: Cough Transmission Status: Pending to [id number] Referrals: Eric Beck MD [Primary Care Provider] - As needed Forms: Work/School Release Time of Disposition: 15:30 Medical Decision Making - Ridge Inquiry Pt receiving controlled substance: No Ridge was queried for this patient: No Vital Signs: 04/03/21 15:15 Temperature 98.6 F Temperature Source Oral Pulse Rate [Right Brachial] 68 Respiratory Rate 19 Blood Pressure [Right Arm] 108/72 L Blood Pressure Mean [Right Arm] 84 Blood Pressure Source [Right Arm] Automatic Cuff Blood Pressure Position [Right Arm] Sitting 02 Sat by Pulse Oximetry 98 Oxygen Delivery Method Room Air - Lab Data Lab Results 04/03/21 14:36: Urine Color Yellow, Urine Appearance Clear, Urine pH 5.5, Ur Specific [place] 1.020, Urine Protein Trace, Urine Glucose (UA) 500, Urine Ketones Negative, Urine Blood Trace, Urine Nitrate Negative, Urine Bilirubin Negative, Urine Urobilinogen 0.2, Ur Leukocyte Esterase Negative Orders (Tests/Meds): ORDERS Category Date Time Status Covid-19 Nasal PCR ([facility]) Routine Lab 04/03/21 14:36 Ordered [facility] [place] HPI - General Stated complaint: cough, congestion, sore throat, headache Time Seen by Provider: 04/03/21 15:25 Mode of Arrival: Ambulatory Source of Information: Patient Description of Symptoms (Recalled from Triage Doc. by RN): coughing, congestion, headache, aches HEENT Symptoms (Recalled from RN notes): Yes Resp Symptoms (Recalled from RN notes): Yes Skin Symptoms (Recalled from RN notes): No MS Symptoms (Recalled from RN notes): No Functional Status (Recalled from RN notes): yes - History of Present Illness Provider Complaint: Patient states that she is currently on medication for UTI and wanted to have her urine checked to make sure that infection is clearing State that she has been having cough, nasal congestion and headache on and off States that she was around her brother in law a little over a week ago who has since tested positive for COVID and she wanted to get tested - Related Data Home Medications Medication Instructions Recorded Confirmed Fluoxetine HCl [Prozac] 40 mg PO DAILY 11/19/18 01/08/20 Icosapent Ethyl [Vascepa] 1 gm PO BID 11/19/18 01/08/20 Lisinopril/Hydrochlorothiazide 1 tab PO DAILY 11/19/18 01/08/20 [Lisinopril-Hctz 20-25 mg Tab] Montelukast Sodium [Singulair 10mg 10 mg PO PM 11/19/18
[2021-04-03 16:00] VITALS: BP 108/72; PULSE 68; RESP 19; TEMP 37; O2SAT 98
== END 2021-04-03 16:02 | disposition home or self-care (01) ==
PROVIDERS: Emergency Provider Nurse Practitioner; PCP Family Medicine
DX: U07.1 COVID-19 (principal); B34.9 Viral infection, unspecified; F41.8 Other specified anxiety disorders; E11.9 Type 2 diabetes mellitus without complications; K21.9 Gastro-esophageal reflux disease without esophagitis; E78.5 Hyperlipidemia, unspecified; I10 Essential (primary) hypertension; E03.9 Hypothyroidism, unspecified; Z79.899 Other long term (current) drug therapy
CPT/HCPCS: 81003; 99202; C9803; G0463; U0003; U0005

== ENCOUNTER → 2021-04-19 17:17 | Outpatient (CLI) | payer BC, SELFPAY ==
--- NOTE | 2021-04-19 17:32 | XR_ITS ---
PROCEDURE INFORMATION: Exam: XR Cervical Spine Exam date and time: 04/19/2021 5:32 PM Age: 56 years old Clinical indication: Radicular pain (radiculopathy); Cervical region; Additional info: Cervical radiculopathy TECHNIQUE: Imaging protocol: XR of the cervical spine. Views: 4 or 5 views. COMPARISON: CR XR CHEST PORTABLE 07/15/2020 11:49 AM FINDINGS: Bones/joints: No malalignment. Vertebral body heights are maintained. Some prominent anterior osteophytes are seen worst at C5-C6. Mild multilevel degenerative facet arthropathy and uncovertebral spurring. Mild neural foraminal stenosis at C2-C3 and C3-C4 bilaterally. This is worse on the left. Soft tissues: Unremarkable. Dental: Dental disease noted. IMPRESSION: Mild multilevel degenerative spondylopathy
== END ==
PROVIDERS: PCP Family Medicine; Visit Provider Family Medicine
DX: M54.12 Radiculopathy, cervical region (principal)
CPT/HCPCS: 72050

== ENCOUNTER → 2021-05-11 10:18 | Outpatient (CLI) | payer BC, SELFPAY ==
[2021-05-11 11:58] LABS: Thyroid Stimulating Hormone 1.39 uIU/mL (0.465-4.68)
[2021-05-11 12:33] LABS: Vitamin B12 755 pg/mL (239-931)
== END ==
PROVIDERS: Visit Provider Nurse Practitioner Family
DX: M54.2 Cervicalgia (principal); M79.642 Pain in left hand; R20.0 Anesthesia of skin; R20.2 Paresthesia of skin
CPT/HCPCS: 36415; 82607; 82746; 84443

== ENCOUNTER → 2021-05-18 11:09 | Outpatient (CLI) | payer BC, SELFPAY ==
--- NOTE | 2021-05-18 11:09 | MR_ITS ---
PROCEDURE: MR CERVICAL SPINE WO CON CLINICAL INDICATION: eval for spinal stenosis with myelopathy Right arm pain and numbness and tingling COMPARISON: CR XR CERVICAL SPINE 5V from 04/19/2021 TECHNIQUE: Standard multiplanar multiecho sequences are performed without contrast. 3-D MIP and myelographic images are also rendered and reviewed FINDINGS: There is normal alignment. Craniocervical junction has an unremarkable appearance. C2-C3: Unremarkable. C3-C4: Mild bilateral foraminal narrowing from facet hypertrophic change. C4-C5: There is mild degenerative disc disease with bulging disc and a small central disc protrusion causing some mild impingement upon the anterior and central aspect of the cord with contour deformity of the cord at this area. There are anterior osteophytes at this level. C5-C6: Mild degenerative disc disease with small central disc protrusion with mild impingement upon the anterior and central aspect of the cord and minimal contour deformity of the cord at this area. C6-C7, C7 T1 and T1-T2 have an unremarkable appearance. At T2-T3 there is a facet/ligamentum hypertrophic change with right-sided lateral recess narrowing. This is imaged only in the sagittal plane. IMPRESSION: 1. C4-C5: There is mild degenerative disc disease with bulging disc and a small central disc protrusion causing some mild impingement upon the anterior and central aspect of the cord with contour deformity of the cord at this area. There are anterior osteophytes at this level. 2. C5-C6: Mild degenerative disc disease with small central disc protrusion with mild impingement upon the anterior and central aspect of the cord and minimal contour deformity of the cord at this area. 3. At T2-T3 there is a facet/ligamentum hypertrophic change with right-sided lateral recess narrowing. This is imaged only in the sagittal plane 4. The central disc protrusion at C4-C5 is slightly larger than at C5-C6. Dictated by: Sundar Nathan MD 05/19/2021 10:04 Sundar Nathan MD in [place] 05/19/2021 10:04
== END ==
PROVIDERS: PCP Family Medicine; Visit Provider Nurse Practitioner Family
DX: M54.2 Cervicalgia (principal); M79.642 Pain in left hand; R20.0 Anesthesia of skin; R20.2 Paresthesia of skin
CPT/HCPCS: 72141; 76376

== ENCOUNTER → 2021-06-16 17:19 | Outpatient (CLI) | payer BC, SELFPAY ==
[2021-06-16 19:01] LABS: Potassium 4.7 mmoL/L (3.5-5.1)
[2021-06-16 19:53] LABS: Vitamin B12 659 pg/mL (239-931)
== END ==
PROVIDERS: Visit Provider Family Medicine
DX: E53.8 Deficiency of other specified B group vitamins (principal)
CPT/HCPCS: 36415; 82607; 84132

== ENCOUNTER → 2021-11-22 09:36 | Outpatient (CLI) | payer BC, SELFPAY ==
[2021-11-22 10:46] LABS: Basophils # 0.1 K/mm3 (0-0.2); Basophils % 1.2 % (0.1-2.0); Eosinophils # 0.3 K/mm3 (0.0-0.4); Eosinophils % 4.6 % (0.1-12.0); Hematocrit 33.3 % (37.0-47.0); Hemoglobin 11.4 g/dL (12.2-16.2); Lymphocytes # 1.7 K/mm3 (0.7-4.5); Lymphocytes % 23.1 % (10-50); Mean Corpuscular HGB Conc 34.1 g/dL (31.8-35.4); Mean Corpuscular Hemoglobin 31.8 pg (27.0-31.2); Mean Corpuscular Volume 93.2 fl (81-99); Mean Platelet Volume 8.3 fl (7.4-10.4); Monocytes # 0.3 K/mm3 (0.1-1.0); Monocytes % 3.9 % (1.7-9.3); Neutrophils # 4.8 K/mm3 (1.8-7.8); Neutrophils % 67.2 % (37.0-80.0); Platelet Count 294 K/mm3 (142-424); Red Blood Count 3.58 M/mm3 (4.20-5.40); Red Cell Distribution Width 13.5 % (11.5-17.5); White Blood Count 7.1 K/mm3 (4.8-10.8)
[2021-11-22 10:56] LABS: Hemoglobin A1C 6.7 % (4.0-6.0)
[2021-11-22 11:16] LABS: Alanine Aminotransferase 17 U/L (12-78); Albumin Level 3.6 g/dl (3.5-5.0); Anion Gap 7.4 mEq/L (5-15); Aspartate Amino Transferase 19 U/L (14-36); Bilirubin,Total 0.4 mg/dl (0.2-1.3); Blood Urea Nitrogen 12 mg/dl (7-17); Calcium 8.9 mg/dl (8.4-10.2); Carbon Dioxide 33 mmol/L (22.0-30.0); Chloride 103 mmol/L (98-107); Estimated Glomerular Filt Rate 58 ml/min (>60); GFR (African American) 70 ML/MIN (>60); Globulin 2.1 g/dL (1.3-3.2); Glucose 134 mg/dl (74-100); Magnesium 1.3 mg/dl (1.6-2.3); Potassium 4.4 mmoL/L (3.5-5.1); Sodium 139 mmol/L (136-145); Total Protein,Serum 5.7 g/dl (6.3-8.2)
[2021-11-22 11:17] LABS: Albumin/Globulin Ratio 1.7 (1.1-1.8); Alkaline Phosphatase 103 U/L (38-126); Chol/HDL Ratio 4.8 (1-3.5); Cholesterol 179 mg/dl (140-200); HDL Cholesterol 37 mg/dl (40-60); Triglycerides 272 mg/dl (30-150); VLDL Cholesterol 54 mg/dL (0-40)
[2021-11-22 11:27] LABS: Direct LDL Cholesterol 86.94 mg/dL (100-129)
[2021-11-22 11:33] LABS: 25-OH Vitamin D, Total 35.3 ng/mL (30-100)
== END ==
PROVIDERS: PCP Family Medicine; Visit Provider Family Medicine
DX: R00.2 Palpitations (principal); I10 Essential (primary) hypertension; E11.9 Type 2 diabetes mellitus without complications; E55.9 Vitamin D deficiency, unspecified; E78.5 Hyperlipidemia, unspecified; E78.1 Pure hyperglyceridemia
CPT/HCPCS: 36415; 80053; 80061; 82043; 82306; 83036; 83735; 85025

== ENCOUNTER 2022-04-23 15:41 | Emergency (ER) | payer BC, SELFPAY ==
--- NOTE | 2022-04-23 16:11 | EXP.UTC ---
Discharge Plan Disposition Patient Disposition: Home, Self-Care Condition: Good Prescriptions Prescriptions: New ondansetron 4 mg Tablet,Disintegrating 4 mg PO Q8H PRN (Reason: Nausea) Qty: 20 0RF No Action polyethylene glycol 3350 17 gram/dose powder 17 g PO DAILY ondansetron HCl 4 mg tablet 4 mg PO PRN Trulicity 1.5 mg/0.5 mL pen injector SQ WEEKLY duloxetine 60 mg capsule,delayed release(DR/EC) 60 mg PO QAM Qty: 30 2RF diclofenac sodium 50 mg tablet,delayed release (DR/EC) 50 mg PO BID Qty: 60 1RF cholecalciferol (vitamin D3) [Vitamin D3] 50 mcg (2,000 unit) tablet 2,000 unit PO DAILY cyanocobalamin (vitamin B-12) 1,000 mcg tablet 1,000 mcg PO DAILY fluoxetine [Prozac] 40 mg capsule 40 mg PO DAILY ezetimibe [Zetia] 10 mg tablet 10 mg PO DAILY omega-3 acid ethyl esters [Lovaza] 1 gram capsule 1 cap PO BID pantoprazole [Protonix] [address] for susp in packet 40 mg PO DAILY cetirizine [Zyrtec] 10 mg tablet 10 mg PO DAILY PRN atenolol 25 MG tablet 25 mg PO DAILY lisinopril-hydrochlorothiazide 1 EACH tablet 1 tab PO DAILY montelukast 10 MG tablet 10 mg PO PM Referrals Follow up/Referrals: Eric Beck MD [Primary Care Provider] - See instructions Activity Restrictions/Add. Instructions Additional Instructions/Restrictions: Drink plenty of fluids. Take tylenol for pain or fever. Take the medications as directed. Follow up with your regular doctor. GO TO THE ER FOR ANY WORSENING SYMPTOMS Return the stool sample with the order to the outpatient lab for evaluation of the cause of your diarrhea. Follow up with your primary care physician for h. pylori testing. Clinical Impressions Clinical Impression: Diarrhea Instructions Patient Instructions: Diarrhea Discharge ED Provider: Daniel Kumar [facility] General Stated complaint: DIARRHEA Time Seen by Provider: 04/23/22 16:11 History of Present Illness Provider Complaint: She reports that she has had diarrhea for the past 2 days. She has also has had a lot of gas and belching. She denies abdominal pain. Related Data Home Medications Medication Instructions Recorded Confirmed atenolol 25 mg tablet 25 mg PO DAILY Hypertension 11/19/18 08/04/21 lisinopril 20 1 tab PO DAILY Hypertension 11/19/18 08/04/21 mg-hydrochlorothiazide 25 mg tablet montelukast 10 mg tablet 10 mg PO PM ALLERGIES 11/19/18 08/04/21 cetirizine 10 mg tablet (Zyrtec) 10 mg PO DAILY PRN 05/10/21 08/04/21 cholecalciferol (vitamin D3) 50 2,000 unit PO DAILY 05/10/21 08/04/21 mcg (2,000 unit) tablet (Vitamin D3) cyanocobalamin (vitamin B-12) 1,000 mcg PO DAILY 05/10/21 08/04/21 1,000 mcg tablet ezetimibe 10 mg tablet (Zetia) 10 mg PO DAILY 05/10/21 08/04/21 fluoxetine 40 mg capsule (Prozac) 40 mg PO DAILY 05/10/21 08/04/21 omega-3 acid ethyl esters 1 gram 1 cap PO BID 05/10/21 08/04/21 capsule (Lovaza) pantoprazole 40 mg granules 40 mg PO DAILY 05/10/21 08/04/21 delayed-release for susp in packet (Protonix) polyethylene glycol 3350 17 17 g PO DAILY 05/10/21 08/04/21 gram/dose oral powder dulaglutide 1.5 mg/0.5 mL mg SQ WEEKLY 08/04/21 08/04/21 subcutaneous pen injector (Trulicity) ondansetron HCl 4 mg tablet 4 mg PO PRN 08/04/21 08/04/21 Previous Rx's Medication Instructions Recorded diclofenac sodium 50 mg 50 mg PO BID #60 tabs 08/04/21 tablet,delayed release duloxetine 60 mg capsule,delayed 60 mg PO QAM #30 caps 08/04/21 release ondansetron 4 mg disintegrating 4 mg PO Q8H PRN Nausea #20 tabs 04/23/22 tablet Allergies Allergy/AdvReac Type Severity Reaction Status Date / Time Penicillins Allergy Verified 04/23/22 16:16 sulfamethoxazole Allergy Verified 04/23/22 16:16 [From Bactrim] trimethoprim [From Bactrim] Allergy Verified 04/23/22 16:16 PFSH PFSH Social History (Reviewed
[2022-04-23 16:13] VITALS: BP 138/67; PULSE 93; RESP 18; TEMP 36.7; O2SAT 100; BMI 35.3
[2022-04-23 16:59] VITALS: BP 138/67; PULSE 93; RESP 18; TEMP 36.7
== END 2022-04-23 17:00 | disposition home or self-care (01) ==
PROVIDERS: Emergency Provider Nurse Practitioner Family; PCP Family Medicine
DX: R19.7 Diarrhea, unspecified (principal)
CPT/HCPCS: 99212; G0463

== ENCOUNTER → 2022-04-23 18:40 | Outpatient (CLI) | payer BC, SELFPAY ==
[2022-04-23 20:49] LABS: Adenovirus F 40/41, stool Not Detected (NotDetected); Astrovirus Not Detected (NotDetected); Campylobacter Not Detected (NotDetected); Clostridium Difficile A/B, PCR Not Detected (NotDetected); Cryptosporidium Not Detected (NotDetected); Cyclospora Cayetanesis Not Detected (NotDetected); Entamoeba histolytica Not Detected (NotDetected); Enteroaggregative E coli Not Detected (NotDetected); Enteropathogenic E coli Not Detected (NotDetected); Enterotoxigenic E coli Not Detected (NotDetected); Giardia lamblia Not Detected (NotDetected); Norovirus Not Detected (NotDetected); Plesimonas Shigalloides, PCR Not Detected (NotDetected); Rotavirus A Not Detected (NotDetected); Salmonella, PCR Not Detected (NotDetected); Sapovirus Not Detected (NotDetected); Shiga-like toxin E coli Not Detected (NotDetected); Shigella Enterovasive E coli Not Detected (NotDetected); Vibrio Cholerae Not Detected (NotDetected); Vibrio, PCR Not Detected (NotDetected); Yersinia Entercolitica, PCR Not Detected (NotDetected)
== END ==
PROVIDERS: PCP Family Medicine; Visit Provider Nurse Practitioner Family
DX: R19.7 Diarrhea, unspecified (principal)
CPT/HCPCS: 87507

== ENCOUNTER → 2022-05-08 13:29 | Outpatient (CLI) | payer BC, SELFPAY ==
--- NOTE | 2022-05-08 | ECG_ITS ---
APPROVED REPORT Exam: Resting ECG HR:78 bpm ECG Measurements Heart Rate 78 AXES [place] 177 P 13 QRSd 101 QRS -17 QT 364 T 30 QTc 398 Conclusion SINUS RHYTHM INCOMPLETE RIGHT BUNDLE BRANCH BLOCK [90+ ms QRS DURATION, TERMINAL R IN V1/V2, 40+ ms S IN I/aVL/V4/V5/V6] BORDERLINE ECG UNCONFIRMED REPORT Electronically signed by : Roverto Love MD 05/08/2022 16:36:05
== END ==
PROVIDERS: PCP Family Medicine; Visit Provider Nurse Practitioner Family
DX: R07.9 Chest pain, unspecified (principal)
CPT/HCPCS: 93005

== ENCOUNTER 2022-06-22 08:15 | Day surgery (SDC) | payer BC, SELFPAY ==
[2022-06-22 08:36] VITALS: BP 140/70; PULSE 108; RESP 18; TEMP 36.7; O2SAT 96
[2022-06-22 09:25] VITALS: O2SAT 96
--- NOTE | 2022-06-22 09:25 | P.PN_ITS ---
[facility] Disclaimer: The information contained in this section may have been updated after the patient was seen, as this information can be updated by other users. Medical History Diabetes mellitus, type 2 History of anxiety History of depression History of diverticulosis History of gastroesophageal reflux (GERD) History of insomnia History of thyroid disorder Surgical History History of appendectomy History of cholecystectomy Hx of BSO (bilateral salpingo-oophorectomy) Hx of hernia repair Hx of hysterectomy Family History Son Family history of cancer Other Family history of diabetes mellitus type II Family history of hypertension Family history of myocardial infarction Family hx-kidney disease Social History Smoking Status: Never smoker second hand exposure: No alcohol intake: never substance use type: denies use current occupational status: other Travel in the last 8 weeks: None adopted: No caregiver/support person: No foster care: No household members: spouse housing: house lives independently: Yes marital status: education level: high school current occupational exposures/hazards: No caffeine: Yes special argenis needs: No agree to transfusion: No do you feel safe at home: Yes victim of physical abuse: No victim of emotional abuse: No victim of sexual abuse: No would you like helpful sources: No [facility] Anesthesia Checklist Patient Identification Patient Identification: Arm Band Structural Data Admitted From: Home Planned Operative Procedure/s: EGD Consent for Planned Operative Procedure(s) Verified: Yes Verified Documents: Surgical Consent and History and Physical NPO Status Verified Time NPO: 00:00 Additional verifications Anesthesia Reactions: No Hx Blood Transfusions: No Blood Transfusion Reaction: No Airway Assessment C-Spine Mobility Assessed: Yes TMJ Mobility Assessed: Yes Dentition: Good Dentition Neurological Assessment Level of Consciousness: Awake and Alert Anesthesia Plan Anesthesia Risk discussed: Yes Anesthesia Plan: Verified ASA Class: II Anesthesia Type: MAC
--- NOTE | 2022-06-22 09:39 | HMH.SCOPE ---
Procedure: Date: 06/22/22 Patient Date of :: 1965 Procedure Performed:: EGD with snare and biopsies Indications:: GERD, hx of h.pylori infection Performing Provider:: Pérez Watts MD Referring Provider:: Eric Beck Sedation:: Propofol Procedure:: The gastroscope was gently passed through the incisoral orifice into the oral cavity and under direct visualization the esophagus was intubated. The endoscope was passed down the esophagus, through the stomach, and into the duodenum. Color, texture, mucosa, and anatomy of the esophagus, stomach, and duodenum were carefully examined with the scope. Findings:: Oropharynx: normal Esophagus: normal EG Junction: intact at 40 cm Cardia: normal Fundus: normal Body: moderate amount of retained food noted, 1 cm fundic type polyp found, resected with use of snare Antrum: normal, multiple biopsies obtained for evaluation of h. pylori Duodenal bulb: normal Duodenum (second and third portion): normal Impression: Gastroparesis most likely secondary to diabetes Gastric polyp Specimens:: Gastric polyp Recommendations:: Improve glycemic control, weight loss & recheck in about THREE years or so. Complications:: None Estimated blood obtained (mL): 0
[2022-06-22 09:40] VITALS: BP 135/73; PULSE 99; RESP 16; TEMP 36.4; O2SAT 94
[2022-06-22 09:55] VITALS: BP 143/66; PULSE 99; RESP 16; O2SAT 100
[2022-06-22 10:10] VITALS: BP 148/83; PULSE 94; RESP 17; O2SAT 100
[2022-06-23 07:45] LABS: POC Glucose,Bedside 179 (70-110)
== END 2022-06-22 10:27 | disposition home or self-care (01) ==
PROVIDERS: PCP Family Medicine; Visit Provider Internal Medicine Gastroenterology
PROC: 0DJ08ZZ Inspection of Upper Intestinal Tract, Via Natural or Artificial Opening Endoscopic (ICD-10-PCS; CPT 43235; principal; 2022-06-22 09:30)
DX: K21.9 Gastro-esophageal reflux disease without esophagitis (principal); Z79.899 Other long term (current) drug therapy
CPT/HCPCS: 43239; 43251; 82962; 88305

== ENCOUNTER → 2022-07-13 13:40 | Outpatient (CLI) | payer BC, SELFPAY ==
[2022-07-13 15:04] VITALS: BMI 27.1
== END ==
PROVIDERS: PCP Family Medicine; Visit Provider Family Medicine
DX: Z71.3 Dietary counseling and surveillance (principal); E11.9 Type 2 diabetes mellitus without complications; Z79.84 Long term (current) use of oral hypoglycemic drugs
CPT/HCPCS: 97802

== ENCOUNTER 2023-09-09 16:33 | Emergency (ER) | payer BC, SELFPAY ==
[2023-09-09 16:40] VITALS: BP 120/62; PULSE 91; RESP 18; TEMP 36.5; O2SAT 100; BMI 29.4
--- NOTE | 2023-09-09 16:51 | ED_ITS ---
Discharge Plan Disposition Patient Disposition: Home, Self-Care Condition: Good Prescriptions Prescriptions: New triamcinolone acetonide 0.1 % cream 1 applic topical BID PRN (Reason: itching) Qty: 30 0RF methylprednisolone 4 mg Tablets,Dose Pack 4 mg PO DIRECTED 6 Days Qty: 21 0RF Rx Instructions: Take 1 pack as directed for 6 days No Action polyethylene glycol 3350 17 gram/dose powder 17 g PO DAILY Trulicity 1.5 mg/0.5 mL pen injector 1.5 mg SQ WEEKLY cholecalciferol (vitamin D3) [Vitamin D3] 50 mcg (2,000 unit) tablet 2,000 unit PO DAILY fluoxetine [Prozac] 40 mg capsule 40 mg PO DAILY omega-3 acid ethyl esters [Lovaza] 1 gram capsule 1 cap PO BID pantoprazole [Protonix] [address] for susp in packet 40 mg PO DAILY bupropion HCl 100 mg tablet sustained-release 12 hr 100 mg PO DAILY Patient Comments: TAKE 1 TABLET BY MOUTH ONCE DAILY magnesium oxide 400 mg (241.3 mg magnesium) tablet 400 mg PO DAILY Patient Comments: TAKE 1 TABLET BY MOUTH TWICE DAILY Farxiga 5 mg Tablet 5 mg PO DAILY duloxetine 60 mg capsule,delayed release(DR/EC) 60 mg PO QAM atenolol 25 MG tablet 25 mg PO DAILY lisinopril-hydrochlorothiazide 1 EACH tablet 1 tab PO DAILY montelukast 10 MG tablet 10 mg PO PM Referrals Follow up/Referrals: Roverto Love MD [Primary Care Provider] - See instructions Activity Restrictions/Add. Instructions Additional Instructions/Restrictions: Try to identify and avoid contact with the offending substance. Don't start the oral steroids until tomorrow. Don't put the topical steroids (triamcinolone) on your face or your groin. Follow up with your regular doctor. GO TO THE ER FOR ANY WORSENING SYMPTOMS OR CONCERNS Clinical Impressions Clinical Impression: Contact dermatitis Instructions Patient Instructions: Contact Dermatitis, DI for Contact Dermatitis, Triamcinolone Topical, Methylprednisolone, Methylprednisolone Injection Discharge ED Provider: Daniel Kumar [facility] HPI General Stated complaint: rash Mode of Arrival: Ambulatory Source of Information: Patient Limitations: No Limitations Time Seen by Provider: 09/09/23 16:51 Description of Symptoms (Recalled from Triage Doc. by RN): Pt has rash on left side of chest. HEENT Symptoms (Recalled from RN notes): Yes Resp Symptoms (Recalled from RN notes): No Skin Symptoms (Recalled from RN notes): No MS Symptoms (Recalled from RN notes): No Functional Status (Recalled from RN notes): n/a History of Present Illness Provider Complaint: She states that for the past 2 days she has had an itchy rash on her upper chest. She denies any contact with known allergens. She denies starting any new medications. She denies any mouth or throat swelling. Related Data Home Medications Medication Instructions Recorded Confirmed atenolol 25 mg tablet 25 mg PO DAILY Hypertension 11/19/18 06/22/22 lisinopril 20 1 tab PO DAILY Hypertension 11/19/18 06/22/22 mg-hydrochlorothiazide 25 mg tablet montelukast 10 mg tablet 10 mg PO PM ALLERGIES 11/19/18 06/22/22 cholecalciferol (vitamin D3) 50 2,000 unit PO DAILY Supplement 05/10/21 06/22/22 mcg (2,000 unit) tablet (Vitamin D3) fluoxetine 40 mg capsule (Prozac) 40 mg PO DAILY Anxiety 05/10/21 06/22/22 omega-3 acid ethyl esters 1 gram 1 cap PO BID Supplement 05/10/21 06/22/22 capsule (Lovaza) pantoprazole 40 mg granules 40 mg PO DAILY Reflux/Acid reflux 05/10/21 06/22/22 delayed-release for susp in packet (Protonix) polyethylene glycol 3350 17 17 g PO DAILY bowels 05/10/21 06/22/22 gram/dose oral powder dulaglutide 1.5 mg/0.5 mL 1.5 mg SQ WEEKLY Diabetes 08/04/21 06/22/22 subcutaneous pen injector (Trulicity) bupropion HCl 100 mg tablet,12 hr 100 mg PO DAILY Anxiety 05/29/22 06/22/22 sustained-release dapagliflozin propanediol 5 mg 5 mg PO DAILY Diabetes 05/29/22 06/22/22 tablet (Farxiga) duloxetine 60 mg capsule,delayed 60 mg PO QAM Arthritis 05/29/22 06/22/22 release magnesium oxide 400 mg (241.3 mg 400 mg PO DAILY Supplement 05/29/22 06/22/22 magnesium) tablet Previous Rx's Medication Instructions Recorded methylprednisolone 4 mg tablets in 4 mg PO DIRECTED 6 days #21 tabs 02/25/24 a dose pack triamcinolone acetonide 0.1 % 1 applic topical BID PRN itching 09/09/23 topical cream #30 grams Allergies Allergy/AdvReac Type Severity Reaction Status Date / Time Penicillins Allergy Verified 09/09/23 16:51 sulfamethoxazole Allergy Verified 09/09/23 16:51 [From Bactrim] trimethoprim [From Bactrim] Allergy Verified 09/09/23 16:51 Worker's Comp Is this a Worker's Comp case?: No PFSH [facility] Disclaimer: The information contained in this section may have been updated after the patient was seen, as this information can be updated by other users. Medical History (Updated 09/09/23 @ 16:55 by Daniel Kumar APRN) Diabetes mellitus, type 2 History of anxiety History of depression History of diverticulosis History of gastroesophageal reflux (GERD) History of insomnia History of thyroid disorder Surgical History History of appendectomy History of cholecystectomy Hx of BSO (bilateral salpingo-oophorectomy) Hx of hernia repair Hx of hysterectomy Family History Son Family history of cancer Other Family history of diabetes mellitus type II Family history of hypertension Family history of myocardial infarction Family hx-kidney disease Social History Smoking Status: Never smoker second hand exposure: No alcohol intake: never substance use type: denies use current occupational status: other Travel in the last 8 weeks: None adopted: No caregiver/support person: No foster care: No household members: spouse housing: house lives independently: Yes marital status: education level: high school current occupational exposures/hazards: No caffeine: Yes special argenis needs: No agree to transfusion: No do you feel safe at home: Yes victim of physical abuse: No victim of emotional abuse: No victim of sexual abuse: No would you like helpful sources: No ROS Obtained: Yes All systems reviewed & no additional complaints except as documented Constitutional Constitutional: Denies chills and Denies fever(s) Eyes Eyes: Denies eye discharge ENT Ears, Nose, Mouth, and Throat: Denies dizziness, Denies otalgia and Denies sore throat Cardiovascular Cardiovascular: Denies chest pain Respiratory Respiratory: Denies shortness of breath, Denies chest congestion, Denies cough, Denies stridor and Denies wheezing Gastrointestinal Gastrointestingal: Denies nausea or vomiting Musculoskeletal Musculoskeletal: Reports system reviewed and no additional complaints, except as documented and Denies arthralgias Integumentary/Breasts Skin/Breast: Reports as per HPI and Reports rash Neurologic Neurologic: Denies dizziness and Denies paresthesias Allergic/Immunologic Allergic/Immunologic: Denies wheezing Physical Exam General General appearance: alert and in no apparent distress Head Head exam: atraumatic, normocephalic and normal inspection Eye Eye exam: Present normal appearance, PERRL and EOMI ENT ENT exam: Present normal exam, normal oropharynx, mucous membranes moist, TM's normal bilaterally and normal external ear exam Neck Neck exam: Present normal inspection, full ROM and trachea midline; Absent meningismus or lymphadenopathy Chest Chest inspection: Present normal inspection and symmetric chest wall rise; Absent tenderness Respiratory Respiratory exam: Present normal lung sounds bilaterally; Absent respiratory distress Cardiovascular Cardiovascular exam: Present regular rate and normal rhythm; Absent JVD Abdominal Exam Abdominal exam: Present soft and normal bowel sounds; Absent distention, tenderness or guarding Extremities Exam Extremities exam: Present normal inspection, full ROM and normal capillary refill; Absent calf tenderness Back Exam Back exam: Present normal inspection; Absent tenderness Neurological Exam Neurological exam: Present alert and oriented X3 Psychiatric Psychiatric exam: Present normal affect and normal mood Skin Skin exam: Present rash (there is a patch of maculopapular lesions that measures 5 cm diameter. no vesicles, no edema, no open wound or drainage. ) Lymphatic Lymphatic Findings: no adenopathy Medical Decision Making Medical Records Medical records reviewed: No I reviewed the patient's medical records. Ridge Inquiry Pt receiving controlled substance: No Vital Signs: 09/09/23 16:40 Temperature 97.7 F Temperature Source Oral Pulse Rate [Right Radial] 91 H Respiratory Rate 18 Blood Pressure [Right Arm] 120/62 Blood Pressure Mean [Right Arm] 81 Blood Pressure Source [Right Arm] Automatic Cuff Blood Pressure Position [Right Arm] Sitting 02 Sat by Pulse Oximetry 100 Oxygen Delivery Method Room Air
[2023-09-09] MEDS: METHYLPREDNISOLONE SOD SUCC 125MG VIAL 125 MG IM (16:59)
[2023-09-09 17:18] VITALS: BP 120/62; PULSE 91; RESP 18; TEMP 36.5; O2SAT 100
== END 2023-09-09 17:23 | disposition home or self-care (01) ==
PROVIDERS: Emergency Provider Nurse Practitioner Family; PCP Internal Medicine Adolescent Medicine
DX: L25.9 Unspecified contact dermatitis, unspecified cause (principal); E11.9 Type 2 diabetes mellitus without complications; Z79.84 Long term (current) use of oral hypoglycemic drugs; Z79.85 Long-term (current) use of injectable non-insulin antidiabetic drugs
CPT/HCPCS: 96372; 99212; 99214; G0463

== ENCOUNTER 2023-09-25 15:12 | Outpatient (POV) | payer BC, SELFPAY | END 2023-09-25 23:59 | disposition home or self-care (01) | LOC: SC 15:12 | PROVIDERS: PCP Internal Medicine Adolescent Medicine; Visit Provider Dermatology | DX: Z00.00 Encounter for general adult medical examination without abnormal findings (principal) ==

== ENCOUNTER 2023-10-17 12:00 | Outpatient (CLI) | payer BC, SELFPAY ==
--- NOTE | 2023-10-17 12:05 | XR_ITS ---
FINAL REPORT CLINICAL HISTORY: RT HIP PAIN FINDINGS: Right hip Three views were obtained. There is no acute fracture or dislocation. Are mild degenerative changes. No soft tissue abnormality is identified. IMPRESSION: Mild degenerative changes. Reviewed, Interpreted and Dictated by Wild Anderson III, MD Transcribed by Moira Mccollum Authenticated and [facility]
--- NOTE | 2023-10-17 12:05 | XR_ITS ---
FINAL REPORT CLINICAL HISTORY: RT HIP PAIN FINDINGS: Right femur Two views were obtained. There is no acute fracture or dislocation. There are mild degenerative changes of the hip and knee. No soft tissue abnormality is identified. IMPRESSION: Mild degenerative changes. Reviewed, Interpreted and Dictated by Wild Anderson III, MD Transcribed by Moira Mccollum Authenticated and [facility]
== END 2023-10-17 23:59 ==
LOC: RAD 12:00
PROVIDERS: PCP Internal Medicine Adolescent Medicine; Visit Provider Internal Medicine Adolescent Medicine
DX: M25.551 Pain in right hip (principal)
CPT/HCPCS: 73502; 73552

== ENCOUNTER 2024-10-23 06:58 | Outpatient (CLI) | payer BC, SELFPAY ==
--- NOTE | 2024-10-23 07:05 | CT_ITS ---
FINAL REPORT TECHNIQUE: Noncontrast CT exam of the abdomen and pelvis. This study was performed with techniques to keep radiation doses as low as reasonably achievable (ALARA). Individualized dose reduction techniques using automated exposure control or adjustment of mA and/or kV according to the patient''s size were employed. Axial images of the abdomen were obtained without intravenous contrast administration. Multiplanar reconstructions in the sagittal and coronal planes was performed. This study was performed with techniques to keep radiation doses as low as reasonably achievable (ALARA). Individualized dose reduction techniques using automated exposure control or adjustment of mA and/or kV according to the patient's size were employed. CLINICAL HISTORY: MICROSCOPIC HEMATURIA COMPARISON: Report from prior CT 03/18/2021 FINDINGS: CT ABDOMEN PELVIS WITHOUT CONTRAST: Abdomen: Lung bases are clear. Liver, spleen, pancreas and adrenal glands have a normal CT appearance in their limited unenhanced state. The gallbladder has been surgically resected. The kidneys show no stone disease. No ureteral stones are identified. There is an abnormal soft tissue density near the left renal pelvis and proximal ureter, associated with mild hydroureter on the left side. This could represent either hemorrhage or neoplasm. No ureteral stones are present. Pelvis: No distal ureteral stones are seen. Bladder is decompressed. The patient is post hysterectomy. No fluid collection or adenopathy is seen. IMPRESSION: Abnormal soft tissue density near the left renal pelvis and proximal ureter, associated with mild hydroureter. As described above, this could represent hemorrhage or neoplasm. Renal mass protocol follow-up CT is suggested. Reviewed, Interpreted and Dictated by Cruz Hernandez MD Transcribed by Yuliya Suarez Authenticated and [facility]
--- OUTSIDE RECORDS SUMMARY | 2024-10-23 22:35 | XMS_ITS | Data Portability ---
Author Organization [facility] - Erich hudson MD, Main Office Address [address] [place] [address], [address] [address] Assessment No assessment recorded. Plan of Treatment Reminders Order Date Submit Date Provider Last Modified By Organization Details Last Modified Time Details Appointments None record ed. Lab None record ed. Referral None record ed. Procedures None record ed. Surgeries None record ed. Imaging None record ed. Medication Orders None record ed. Patient TargetsNo targets recorded. Patient Instructions Encounter Date Encounter Id Patient Instructions Last Modified By Organization Details Last Modified Time 06/20/2021 [id number] Carpal Tunnel Syndrome: Care Instructions [email or web address] Not available 06/20/2021 08:27:45 Reason for Referral None Reported. Results Created Date Observation Date Name Description Value Unit Range Abnormal Flag Note LastModifiedBy Organization Detail LastModifiedTime 06/20/20 21 06/20/2021 elect romyo gram + nerve condu ction study No observ ation record ed. BARCODE Not Available 2020 08:34:31 Result Notes None recorded. Problems No Known Problems Procedures Surgical History Date Name Laterality Status Provider Name and Address Organization Details Recorded Time 06/20/2021 NCV/EMG completed Jayson Lewis MD 06/20/2021 08:23:16 Imaging Results Imaging Date Name Status LastModified by Organization Details LastModified Time 06/20/2021 electromyogram + nerve conduction study completed [facility] Information not available 06/20/2021 08:34:31 Procedure Notes None recorded. Medical Equipment None Reported. Allergies No known drug allergies Medications Name Sig Start Date Stop Date Status Note LastModified by Organization Details LastModified Time fluoxetine 40 mg capsule active Not Available Not Available Not Available promethazine-DM 6.25 mg-15 mg/5 mL oral syrup TAKE 5MLS BY MOUTH EVERY 6 HOURS NEEDED FOR COUGH active Not Available Not Available No t Available clindamycin HCl 300 mg capsule active Not Available Not Availab le Not Available cetirizine 10 mg tablet active Not Available Not Available Not Available azithromycin 250 mg tablet active Not Available Not Available No t Available benzonatate 200 mg capsule active Not Available Not Available N ot Available tretinoin 0.025 % topical cream active Not Available Not Availa ble Not Available phenazopyridine 200 mg tablet active Not Available Not Availabl e Not Available ondansetron HCl 4 mg tablet active Not Available Not Available Not Available dexamethasone 6 mg tablet active Not Available Not Available No t Available atenolol 25 mg tablet active Not Available Not Available Not Available cyanocobalamin (vit B-12) 1,000 mcg tablet active Not Available Not Available N ot Available phentermine 37.5 mg tablet active Not Available Not Available No t Available allopurinol 100 mg tablet active Not Available Not Available No t Available tramadol 50 mg tablet active Not Available Not Available Not Available triamcinolone acetonide 0.1 % topical cream active Not Available Not Availabl e Not Available tamsulosin 0.4 mg capsule active Not Available Not Available N ot Available benzonatate 100 mg capsule active Not Available Not Available N ot Available pantoprazole 40 mg tablet,delayed release active Not Available Not Available Not Available lisinopril 20 mg-hydrochloroth iazide 25 mg tablet active Not Available Not Available Not Available montelukast 10 mg tablet active Not Available Not Available No t Available zaleplon 10 mg capsule active Not Available Not Available Not Available lisinopril 10 mg-hydrochloroth iazide 12.5 mg tablet active Not Available Not Available Not Available cefuroxime axetil 500 mg tablet active Not Available Not Available Not Available levofloxacin 500 mg tablet active Not Available Not Available No t Available albuterol sulfate HFA 90 mcg/actuation aerosol inhaler active Not Available Not Availa ble Not Available fluoxetine 20 mg capsule active Not Available Not Available Not Available diazepam 5 mg tablet active Not Available Not Available Not Available metaxalone 800 mg tablet active Not Available Not Available No t Available ezetimibe 10 mg tablet active Not Available Not Available Not Available Allergy Relief (loratadine) 10 mg tablet active Not Available Not Available No t Available rosuvastatin 5 mg tablet active Not Available Not Available No t Available duloxetine 30 mg capsule,delayed release active Not Available Not Available Not Available Vitamin D3 50 mcg (2,000 unit) tablet active Not Available Not Available Not Available ClearLax 17 gram/dose oral powder active Not Available Not Available Not Available Vascepa 1 gram capsule active Not Available Not Available Not Available Trulicity 1.5 mg/0.5 mL subcutaneous pen injector active Not Available Not Available Not Available Trulicity 0.75 mg/0.5 mL subcutaneous pen injector active Not Available Not Available Not Available OneTouch Ultra2 Meter active Not Available Not Available Not Available Vitals None Recorded Social History None recorded. Functional Status None recorded. Mental Status None recorded. Family History Nothing Reported. Medical History No medical history recorded. Gynecological HistoryNo gynecological history recorded. Obstetrics History GPAL:G 0 P 0 0 0 0 Past Encounters Encounter ID Performer Location Encounter Start Date Encounter Closed Date Diagnosis/Indication Diagnosis SNOMED-CT Code Diagnosis ICD10 Code Diagnosis Note [id number] Jayson Kwok Main Office [address], [facility] [address] [place] [address] 06/20/2021 07:49:17 06/20/2021 08:26:26 Bilateral carpal tunnel syndrome [id number] G56.03 Moderate to severe right, mild left CTS. Health Concerns Section Related Observation LastModified by Organization Detai ls LastModified Time None Recorded Concern Status LastModified by Organization Details LastModified Time None Recorded Advance Directives Directive None Recorded Payers Encounter Date Sequence Insurance Name Policy Number Policy Larson Covered Member ID Larson Member ID Guarantor Name 06/20/2021 1 [place] [employer] [id number] A Ryder Mariscal [id number] Josefa Mariscal OBGyn Episode No OBEpisode recorded.
== END 2024-10-23 23:59 | disposition home or self-care (01) ==
PROVIDERS: PCP Internal Medicine Adolescent Medicine; Visit Provider Internal Medicine Adolescent Medicine
DX: R31.29 Other microscopic hematuria (principal)
CPT/HCPCS: 74176

== ENCOUNTER 2024-11-13 08:02 | Outpatient (CLI) | payer BC, SELFPAY ==
--- OUTSIDE RECORDS SUMMARY | 2024-11-13 08:05 | XMS_ITS | Data Portability ---
Author Organization [facility] - Erich hudson MD, Main Office Address [address] [place] [address], [address] [address] Assessment No assessment recorded. Plan of Treatment [...] By Organization Details Last Modified Time 06/20/2021 [id number] Carpal Tunnel Syndrome: Care Instructions [email or web address] Not [...] SNOMED-CT Code Diagnosis ICD10 Code Diagnosis Note [id number] Erich Lewis MD Main Office [address] [facility], [facility] [address] [place] [address] 06/20/2021 07:49:17 06/20/2021 08:26:26 Bilateral carpal tunnel syndrome [id number] G56.03 Moderate to severe right, mild left CTS. Health Concerns Section Related Observation LastModified by Organization Detai ls LastModified Time None Recorded Concern Status LastModified by Organization Details LastModified Time None Recorded Advance Directives Directive None Recorded Payers Encounter Date Sequence Insurance Name Policy Number Policy Larson Covered Member ID Larson Member ID Guarantor Name 06/20/2021 1 [place] [id number] A Ryder Mariscal [id number] Josefa Mariscal OBGyn Episode No OBEpisode recorded.
--- NOTE | 2024-11-13 08:06 | CT_ITS ---
FINAL REPORT TECHNIQUE: Pre-and postcontrast axial CT images of the abdomen and pelvis were obtained. Coronal and sagittal reformatted images were also obtained and reviewed. This study was performed with techniques to keep radiation doses as low as reasonably achievable (ALARA). Individualized dose reduction techniques using automated exposure control or adjustment of mA and/or kV according to the patient's size were employed. CLINICAL HISTORY: HEMATURIA, pt states she has a spot on her right kidney. COMPARISON: 10/23/2024 FINDINGS: Abdomen: The lung bases are clear. The heart is normal in size. The liver has an unremarkable appearance, without evidence of mass or biliary ductal dilatation. The gallbladder has been surgically resected. The spleen is unremarkable. No adrenal mass is present. The pancreas has an unremarkable appearance. Postcontrast enhanced images reveal an abnormal soft tissue mass in the left renal pelvis which extends into the proximal ureter. The pelvic portion of the mass measures up to 2.7 cm in size. There is mild to moderate hydronephrosis, and the mass appears to extend into the proximal left ureter. The aorta is normal in caliber. A few retroperitoneal nodes are noted measuring up to 1.3 cm in size. Pelvis: The appendix is not well-visualized. There is a small amount of air in the dependent portion of the bladder, likely iatrogenic. No inflammatory process is seen. There is no evidence of bowel obstruction. Precontrast imaging demonstrates no evidence of nephrolithiasis. IMPRESSION: There is an abnormal soft tissue mass in the left renal pelvis, which extends into the proximal left ureter, producing mild to moderate hydronephrosis and narrowing the proximal left ureter. The overall appearance is worrisome for underlying urothelial carcinoma. Urologic evaluation and ureteroscopy is recommended for further evaluation. A small amount of air is present in the dependent portion of the bladder, likely iatrogenic. Reviewed, Interpreted and Dictated by Juan F Whittaker MD Transcribed by Yuliya Suarez Authenticated and [facility]
[2024-11-13 08:36] LABS: Blood Urea Nitrogen 21 mg/dl (7-17); Estimated Glomerular Filt Rate 39 ml/min (>60); GFR (African American) 47 ML/MIN (>60)
--- NOTE | 2024-11-13 08:42 | HMH.ITSTN ---
pt given bottle of water to drink before CT scan
[2024-11-13] MEDS: SODIUM CHLORIDE 0.9% 10ML SYR (RAD ONLY) 10 ML IV (09:25)
[2024-11-13] MEDS: IOPAMIDOL-370 (76%);100ML BOTTLE 75 ML IV (09:25)
== END 2024-11-13 23:59 | disposition home or self-care (01) ==
PROVIDERS: PCP Internal Medicine Adolescent Medicine; Visit Provider Internal Medicine Adolescent Medicine
DX: D41.22 Neoplasm of uncertain behavior of left ureter (principal)
CPT/HCPCS: 36415; 74178; 82565; 84520; Q9967

== ENCOUNTER 2024-12-19 17:19 | Outpatient (CLI) | payer BC, SELFPAY ==
--- OUTSIDE RECORDS SUMMARY | 2024-12-19 17:22 | XMS_ITS | Data Portability ---
Author Organization [facility] - Francitas LIAT Perez [place] CLOSED Address [address] [facility] [facility] [address] [address] [place] [address] Care Team Providers Care Office Mail Clerk Name Role Phone HAI STEVEN Primary Care Provider Assessment No assessment recorded. Plan of Treatment Reminders Order Date Submit Date Provider Last Modified By Organization Details Last Modified Time Details Appointments None recorded. Lab urinalysis panel, auto [address] [facility], [address], [place], [address], 5 08:01:27 urinalysis panel, auto [address] [facility], [address], [address], [place], [address], 5 14:02:41 urinalysis panel, auto [address] [facility], [address], [address], [place], [address], 5 21:48:15 urinalysis panel, auto 2024 025 pradip [facility], [address], [address], [place], [address], 16:36:39 cytology, non-gynecol ogical, unspecified specimen 2024 025 DELTA [facility], [address] [place], [address], 12:51:30 Referral None recorded. Procedures None recorded. Surgeries None recorded. Imaging None recorded. Medication Orders None recorded. Patient TargetsNo targets recorded. Patient InstructionsNo instructions recorded. Reason for Referral None Reported. Results Created Date Observation Date Name Description Value Unit Range Abnormal Flag Note LastModifiedBy Organization Detail LastModifiedTime 11/26/1911/25/2024 CYTOL OGY cytology SEE BELOW normal Depar tment of Patho logy Medic al Cytol ogy Repor t NAME: RONALDO MARISCAL PATH. :[id number] Copie s to: SOURC E OF SPECI MEN: URINE , JOSE R TER Volum e: 60 mL Color : Yello w Consi st: Water y Fixed : N Blood y: N Clott ed: N Clear : N Other : 60mL OF CLOUD Y YELLO W FLUID RECEI ALBA UNFIX ED. ADDED CYTOL YT. 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 RUEL JARQUIN MD Sendy d Out Date: 12/01 , 12:51 Page 1 of 1 Not Available [facility] [address] [place] [address], [address], 12/01/2024 12:51:30 11/26/1911/25/2024 urina lysis panel , auto Unknown Analyte Clean Catch Not Available [facility] [address] [place] [address] [address], [place], [address], 11/25/2024 12:46:07 11/26/1911/25/2024 urina lysis panel , auto Unknown Analyte Yellow Not Available Critical access hospital [facility] [address], [place], [address], 11/25/2024 12:46:07 11/26/19 25 11/25/2024 urina lysis panel , auto Unknown Analyte Clear Not Available [facility] [address], [place], [address], 11/25/2024 12:46:07 11/26/19 25 11/25/2024 urina lysis panel , auto Unknown Analyte 1.010 Not Available [facility] [address], [place], [address], 11/25/2024 12:46:07 11/26/19 25 11/25/2024 urina lysis panel , auto Unknown Analyte 1.003 - 1.030 Not Available [facility] [address], [place], [address], 11/25/2024 12:46:07 11/26/19 25 11/25/2024 urina lysis panel , auto Unknown Analyte 8.0 Not Available [facility] [address], [place], [address], 11/25/2024 12:46:07 11/26/19 25 11/25/2024 urina lysis panel , auto Unknown Analyte 5.0 - 8.0 Not Available [facility] [address], [place], [address], 11/25/2024 12:46:07 11/26/19 25 11/25/2024 urina lysis panel , auto Unknown Analyte Negati ve Not Available [facility] [address], [place], [address], 11/25/2024 12:46:07 11/26/19 25 11/25/2024 urina lysis panel , auto Unknown Analyte Negati ve Not Available [facility] [address], [place], [address], 11/25/2024 12:46:07 11/26/19 25 11/25/2024 urina lysis panel , auto Unknown Analyte Negati ve Not Available [facility] [address], [place], [address], 11/25/2024 12:46:07 11/26/19 25 11/25/2024 urina lysis panel , auto Unknown Analyte Negati ve Not Available [facility] [address], [place], [address], 11/25/2024 12:46:07 11/26/19 25 11/25/2024 urina lysis panel , auto Unknown Analyte Negati ve Not Available [facility] [address], [place], [address], 11/25/2024 12:46:07 11/26/19 25 11/25/2024 urina lysis panel , auto Unknown Analyte Negati ve Not Available [facility] [address], [place], [address], 11/25/2024 12:46:07 11/26/19 25 11/25/2024 urina lysis panel , auto Unknown Analyte >1000 mg/dL Not Available [facility] [address], [place], [address], 11/25/2024 12:46:07 11/26/19 25 11/25/2024 urina lysis panel , auto Unknown Analyte Normal Not Available [facility] [address], [place], [address], 11/25/2024 12:46:07 11/26/19 25 11/25/2024 urina lysis panel , auto Unknown Analyte Negati ve Not Available [facility] [address], [place], [address], 11/25/2024 12:46:07 11/26/19 25 11/25/2024 urina lysis panel , auto Unknown Analyte Negati ve Not Available [facility] [address], [place], [address], 11/25/2024 12:46:07 11/26/19 25 11/25/2024 urina lysis panel , auto Unknown Analyte Normal Not Available [facility] [address], [place], [address], 11/25/2024 12:46:07 11/26/19 25 11/25/2024 urina lysis panel , auto Unknown Analyte Normal Not Available [facility] [address], [place], [address], 11/25/2024 12:46:07 11/26/19 25 11/25/2024 urina lysis panel , auto Unknown Analyte Negati ve Not Available [facility] [address], [place], [address], 11/25/2024 12:46:07 11/26/19 25 11/25/2024 urina lysis panel , auto Unknown Analyte Negati ve Not Available [facility] [address], [place], [address], 11/25/2024 12:46:07 11/26/19 25 11/25/2024 urina lysis panel , auto Unknown Analyte Negati ve Not Available [facility] [address], [place], [address], 11/25/2024 12:46:07 11/26/19 25 11/25/2024 urina lysis panel , auto Unknown Analyte Negati ve Not Available [facility] [address], [place], [address], 11/25/2024 12:46:07 11/27/19 25 11/26/2024 urina lysis panel , auto Unknown Analyte Clean Catch Not Available [facility] [address], [place], [address], 11/26/2024 15:42:05 11/27/19 25 11/26/2024 urina lysis panel , auto Unknown Analyte Yellow Not Available [facility] [address], [place], [address], 11/26/2024 15:42:05 11/27/19 25 11/26/2024 urina lysis panel , auto Unknown Analyte Clear Not Available [facility] [address], [place], [address], 11/26/2024 15:42:05 11/27/19 25 11/26/2024 urina lysis panel , auto Unknown Analyte 1.005 Not Available [facility] [address], [place], [address], 11/26/2024 15:42:05 11/27/19 25 11/26/2024 urina lysis panel , auto Unknown Analyte 1.003 - 1.030 Not Available [facility] [address], [place], [address], 11/26/2024 15:42:05 11/27/19 25 11/26/2024 urina lysis panel , auto Unknown Analyte 6.5 Not Available [facility] [address], [place], [address], 11/26/2024 15:42:05 11/27/19 25 11/26/2024 urina lysis panel , auto Unknown Analyte 5.0 - 8.0 Not Available [facility] [address], [place], [address], 11/26/2024 15:42:05 11/27/19 25 11/26/2024 urina lysis panel , auto Unknown Analyte Negati ve Not Available [facility] [address], [place], [address], 11/26/2024 15:42:05 11/27/19 25 11/26/2024 urina lysis panel , auto Unknown Analyte Negati ve Not Available [facility] [address], [place], [address], 11/26/2024 15:42:05 11/27/19 25 11/26/2024 urina lysis panel , auto Unknown Analyte Negati ve Not Available [facility] [address], [place], [address], 11/26/2024 15:42:05 11/27/19 25 11/26/2024 urina lysis panel , auto Unknown Analyte Negati ve Not Available [facility] [address], [place], [address], 11/26/2024 15:42:05 11/27/19 25 11/26/2024 urina lysis panel , auto Unknown Analyte Negati ve Not Available [facility] [address], [place], [address], 11/26/2024 15:42:05 11/27/19 25 11/26/2024 urina lysis panel , auto Unknown Analyte Negati ve Not Available [facility] [address], [place], [address], 11/26/2024 15:42:05 11/27/19 25 11/26/2024 urina lysis panel , auto Unknown Analyte 250 mg/dL Not Available [facility] [address], [place], [address], 11/26/2024 15:42:05 11/27/19 25 11/26/2024 urina lysis panel , auto Unknown Analyte Normal Not Available [facility] [address], [place], [address], 11/26/2024 15:42:05 11/27/19 25 11/26/2024 urina lysis panel , auto Unknown Analyte Negati ve Not Available [facility] [address], [place], [address], 11/26/2024 15:42:05 11/27/19 25 11/26/2024 urina lysis panel , auto Unknown Analyte Negati ve Not Available [facility] [address], [place], [address], 11/26/2024 15:42:05 11/27/19 25 11/26/2024 urina lysis panel , auto Unknown Analyte Normal Not Available [facility] [address], [place], [address], 11/26/2024 15:42:05 11/27/19 25 11/26/2024 urina lysis panel , auto Unknown Analyte Normal Not Available [facility] [address], [place], [address], 11/26/2024 15:42:05 11/27/19 25 11/26/2024 urina lysis panel , auto Unknown Analyte Negati ve Not Available [facility] [address], [place], [address], 11/26/2024 15:42:05 11/27/19 25 11/26/2024 urina lysis panel , auto Unknown Analyte Negati ve Not Available [facility] [address], [place], [address], 11/26/2024 15:42:05 11/27/19 25 11/26/2024 urina lysis panel , auto Unknown Analyte Negati ve Not Available [facility] [address], [place], [address], 11/26/2024 15:42:05 11/27/19 25 11/26/2024 urina lysis panel , auto Unknown Analyte Negati ve Not Available [facility] [address], [place], [address], 11/26/2024 15:42:05 11/29/19 25 11/28/2024 urina lysis panel , auto Unknown Analyte Clean Catch Not Available [facility] [address], [place], [address], 11/28/2024 10:39:57 11/29/19 25 11/28/2024 urina lysis panel , auto Unknown Analyte Straw Not Available [facility] [address], [place], [address], 11/28/2024 10:39:57 11/29/19 25 11/28/2024 urina lysis panel , auto Unknown Analyte Clear Not Available [facility] [address], [place], [address], 11/28/2024 10:39:57 11/29/19 25 11/28/2024 urina lysis panel , auto Unknown Analyte 1.020 Not Available [facility] [address], [place], [address], 11/28/2024 10:39:57 11/29/19 25 11/28/2024 urina lysis panel , auto Unknown Analyte 1.003 - 1.030 Not Available [facility] [address] [facility] [address], [place], [address], 11/28/2024 10:39:57 11/29/19 25 11/28/2024 urina lysis panel , auto Unknown Analyte 6.0 Not Available [facility] [address], [place], [address], 11/28/2024 10:39:57 11/29/19 25 11/28/2024 urina lysis panel , auto Unknown Analyte 5.0 - 8.0 Not Available [facility] [address] [facility] [address], [place], [address], 11/28/2024 10:39:57 11/29/19 25 11/28/2024 urina lysis panel , auto Unknown Analyte Negati ve Not Available [facility] [address] [facility] [address], [place], [address], 11/28/2024 10:39:57 11/29/19 25 11/28/2024 urina lysis panel , auto Unknown Analyte Negati ve Not Available [facility] [address], [place], [address], 11/28/2024 10:39:57 11/29/19 25 11/28/2024 urina lysis panel , auto Unknown Analyte Negati ve Not Available [facility] [address], [place], [address], 11/28/2024 10:39:57 11/29/19 25 11/28/2024 urina lysis panel , auto Unknown Analyte Negati ve Not Available [facility] [address], [place], [address], 11/28/2024 10:39:57 11/29/19 25 11/28/2024 urina lysis panel , auto Unknown Analyte 30 mg/dL Not Available [facility] [address], [place], [address], 11/28/2024 10:39:57 11/29/19 25 11/28/2024 urina lysis panel , auto Unknown Analyte Negati ve Not Available [facility] [address], [place], [address], 11/28/2024 10:39:57 11/29/19 25 11/28/2024 urina lysis panel , auto Unknown Analyte >1000 mg/dL Not Available [facility] [address], [place], [address], 11/28/2024 10:39:57 11/29/19 25 11/28/2024 urina lysis panel , auto Unknown Analyte Normal Not Available [facility] [address], [place], [address], 11/28/2024 10:39:57 11/29/19 25 11/28/2024 urina lysis panel , auto Unknown Analyte 15 mg/dL Not Available [facility] [address], [place], [address], 11/28/2024 10:39:57 11/29/19 25 11/28/2024 urina lysis panel , auto Unknown Analyte Negati ve Not Available [facility] [address], [place], [address], 11/28/2024 10:39:57 11/29/19 25 11/28/2024 urina lysis panel , auto Unknown Analyte Normal Not Available [facility] [address], [place], [address], 11/28/2024 10:39:57 11/29/19 25 11/28/2024 urina lysis panel , auto Unknown Analyte Normal Not Available [facility] [address], [place], [address], 11/28/2024 10:39:57 11/29/19 25 11/28/2024 urina lysis panel , auto Unknown Analyte Negati ve Not Available [facility] [address], [place], [address], 11/28/2024 10:39:57 11/29/19 25 11/28/2024 urina lysis panel , auto Unknown Analyte Negati ve Not Available [facility] [address], [place], [address], 11/28/2024 10:39:57 11/29/19 25 11/28/2024 urina lysis panel , auto Unknown Analyte Negati ve Not Available [facility] [address], [place], [address], 11/28/2024 10:39:57 11/29/19 25 11/28/2024 urina lysis panel , auto Unknown Analyte Negati ve Not Available [facility] [address], [place], [address], 11/28/2024 10:39:57 12/11/19 25 12/10/2024 urina lysis panel , auto Unknown Analyte Clean Catch Not Available [facility] [address], [place], [address], 12/10/2024 13:32:56 12/11/19 25 12/10/2024 urina lysis panel , auto Unknown Analyte Yellow Not Available [facility] [address], [place], [address], 12/10/2024 13:32:56 12/11/19 25 12/10/2024 urina lysis panel , auto Unknown Analyte Clear Not Available [facility] [address], [place], [address], 12/10/2024 13:32:56 12/11/19 25 12/10/2024 urina lysis panel , auto Unknown Analyte 1.005 Not Available [facility] [address], [place], [address], 12/10/2024 13:32:56 12/11/19 25 12/10/2024 urina lysis panel , auto Unknown Analyte 1.003 - 1.030 Not Available [facility] [address], [place], [address], 12/10/2024 13:32:56 12/11/19 25 12/10/2024 urina lysis panel , auto Unknown Analyte 7.0 Not Available [facility] [address], [place], [address], 12/10/2024 13:32:56 12/11/19 25 12/10/2024 urina lysis panel , auto Unknown Analyte 5.0 - 8.0 Not Available [facility] [address] [place] [address] [address], [place], [address], 12/10/2024 13:32:56 12/11/19 25 12/10/2024 urina lysis panel , auto Unknown Analyte Negati ve Not Available [facility] [address] [place] [address] [address], [place], [address], 12/10/2024 13:32:56 12/11/19 25 12/10/2024 urina lysis panel , auto Unknown Analyte Negati ve Not Available [facility] [address], [place], [address], 12/10/2024 13:32:56 12/11/19 25 12/10/2024 urina lysis panel , auto Unknown Analyte Negati ve Not Available [facility] [address], [place], [address], 12/10/2024 13:32:56 12/11/19 25 12/10/2024 urina lysis panel , auto Unknown Analyte Negati ve Not Available [facility] [address], [place], [address], 12/10/2024 13:32:56 12/11/19 25 12/10/2024 urina lysis panel , auto Unknown Analyte Negati ve Not Available [facility] [address], [place], [address], 12/10/2024 13:32:56 12/11/19 25 12/10/2024 urina lysis panel , auto Unknown Analyte Negati ve Not Available [facility] [address] [address], [place], [address], 12/10/2024 13:32:56 12/11/19 25 12/10/2024 urina lysis panel , auto Unknown Analyte Normal Not Available [facility] [address], [place], [address], 12/10/2024 13:32:56 12/11/19 25 12/10/2024 urina lysis panel , auto Unknown Analyte Normal Not Available [facility] [address], [place], [address], 12/10/2024 13:32:56 12/11/19 25 12/10/2024 urina lysis panel , auto Unknown Analyte Negati ve Not Available [facility] [address], [place], [address], 12/10/2024 13:32:56 12/11/19 25 12/10/2024 urina lysis panel , auto Unknown Analyte Negati ve Not Available [facility] [address], [place], [address], 12/10/2024 13:32:56 12/11/19 25 12/10/2024 urina lysis panel , auto Unknown Analyte Normal Not Available [facility] [address], [place], [address], 12/10/2024 13:32:56 12/11/19 25 12/10/2024 urina lysis panel , auto Unknown Analyte Normal Not Available [facility] [address], [place], [address], 12/10/2024 13:32:56 12/11/19 25 12/10/2024 urina lysis panel , auto Unknown Analyte Negati ve Not Available [facility] [address], [place], [address], 12/10/2024 13:32:56 12/11/19 25 12/10/2024 urina lysis panel , auto Unknown Analyte Negati ve Not Available [facility] [address], [place], [address], 12/10/2024 13:32:56 12/11/19 25 12/10/2024 urina lysis panel , auto Unknown Analyte Negati ve Not Available [facility] [address], [place], [address], 12/10/2024 13:32:56 12/11/19 25 12/10/2024 urina lysis panel , auto Unknown Analyte Negati ve Not Available [facility] [address], [place], [address], 12/10/2024 13:32:56 11/29/19 25 11/28/2024 US, retro perit oneum , limit ed [facility]ly [facility] [address] [place] [address] [phone] Patien t Name: RONALDO MARISCAL Amiratulio t : 967 Patien t 54 Orderi ng Provid er: COTY WADDELL EXAM DATE: 2024 EXAM: US KIDNEY BILAT WO BLADDE R CLINIC AL INFORM ATION: Renal mass TECHNI QUE: Multip le sonogr aphic images of both kidney s were obtain ed. COMPAR ELOINA: None availa ble FINDIN GS: RIGHT KIDNEY : Length = 9.6 cm. No hydron ephros is, mass or stone. LEFT KIDNEY : Length = 10 cm. Fullne ss of left renal pelvis with an AP measur ement of the pelvis 1.2 cm. 3.2 x 1.7 x 1.9 cm hypoec hoic lesion sugges griselda involv ing the renal cortex . Recomm end correl ating with CT renal mass protoc ol IMPRES RUTH: 1. Possib le left renal mass. Sugges t CT, renal mass protoc ol 2. Fullne ss of left renal pelvis Interp reted By: Abdulkadir Keller MD Electr onical ly Signed By: Abdulkadir Keller MD on 025 12:31 PM [email or web address] [facility] Radiology [facility] [address] [place], [address], 12/19/2024 09:33:58 Result Notes None recorded. Problems No Known Problems Procedures Surgical History Date Name Laterality Status Provider Name and Address Organization Details Recorded Time 11/26/19 25 Post Void Residual; Ultrasound completed Francinechristian Suarez [facility] 11/25/2024 13:26:19 hysterectomy completed Francine Suarez [facility] 11/25/2024 12:46:58 Imaging Results None recorded. Procedure Notes None recorded. Medical Equipment None Reported. Allergies No known drug allergies Medications Not known to be on any medication Vitals Date Recorded Body height Body mass index (BMI) Body weight Provider Name and Address Organization Details Last Updated DateTime 11/25/2024 154.94 cm 27.4 kg/m2 65285.89 g Francine Suarez [facility] 11/25/2024 12:46:30 Date Recorded Body height Body mass index (BMI) Body weight Provider Name and Address Organization Details Last Updated DateTime 11/26/2024 154.94 cm 27.4 kg/m2 49566.89 g Kayla West [facility] 11/26/2024 16:04:21 Date Recorded Body height Body mass index (BMI) Body weight Provider Name and Address Organization Details Last Updated DateTime 11/28/2024 154.94 cm 27.4 kg/m2 32455.89 g Vinny Manuel [facility] 11/28/2024 10:57:24 Social History Question Answer Notes LastModified by Organizat ion Details LastModified Time Tobacco Smoking Status Never Smoker Not Available [employer] 11/25/2024 12:44:26 What Was The Date Of Your Most Recent Tobacco Screening? 11/28/2024 Information not available 11/28/2024 What Is Your Relationship Status? [email or web address] Information not available 11/25/2024 Sex: Unknown Functional Status Question Answer Note LastModified by Organization D etails LastModified Time Do you or have you ever used any other forms of tobacco or nicotine? No [email or web address] Information not available 11/25/2024 What is your level of alcohol consumption? None [email or web address] Information not available 11/25/2024 Are you currently employed? No [email or web address] Information not available 11/25/2024 Mental Status None recorded. Family History Relationship Description Onset Age of this Age Resolved Age Notes LastModified by Organization Details LastModified Time Mother Type 2 diabetes mellitus [email or web address] Not available 2024 12:44:26 Maternal Grandmother Type 2 diabetes mellitus [email or web address] Not available 2024 12:44:26 Sister Type 2 diabetes mellitus [email or web address] Not available 2024 12:44:26 Father Type 2 diabetes mellitus [email or web address] Not available 2024 12:44:26 Medical History Condition Response Diabetes Y Acid Reflux (GERD) Y If you get up at night to urinate, how m any times? Y Depression Y Kidney Disease Y Do you get up at night to urinate? Y Gynecological History Statement/Question Response Female Hormone Problem N # of Pregnancies 2 Abnormal Periods N # of Births 2 Could you be now? N Current Control Method Hysterectom y Uterus/Ovaries Problem N Obstetrics History GPAL:G 0 P 0 0 0 0 Past Encounters Encounter ID Performer Location Encounter Start Date Encounter Closed Date Diagnosis/Indication Diagnosis SNOMED-CT Code Diagnosis ICD10 Code Diagnosis Note [id number] IZZY MARIE MD [facility] [address] [place] [address] 11/25/2024 12:44:25 11/25/2024 13:45:30 Blood in urine 43938536 R31.9 Renal mass 737905347 N28 .89 Increased frequency of urination 215996588 R35.0 [id number] MAGDY WADDELL MD [facility] [address] [place] [address] 11/26/2024 15:34:24 11/28/2024 04:12:43 Abdominal mass 310171321 R19.02 Plan as above [id number] MAGDY WADDELL MD [facility] [address],[place] [address] 11/28/2024 09:35:57 11/28/2024 11:42:55 Renal mass 595205073 N28.89 As above with very long discussion as well as review of outside CT scan images. We will arrange for renal ultrasound as well as cystoscopy left retrograde pyelogram possible diagnostic ureterosco py [id number] MAGDY WADDELL MD [facility] [address] [address] 12/10/2024 13:21:56 12/10/2024 15:02:15 Renal mass 263474197 N28.89 As above Health Concerns Section Related Observation LastModified by Organization Detai ls LastModified Time None Recorded Concern Status LastModified by Organization Details LastModified Time None Recorded Advance Directives Directive None Recorded Payers Insurance Date Sequence Insurance Name Policy Number Policy Larson Covered Member ID Larson Member ID Guarantor Name 12/16/2024 1 [place] [id number] Cory Mariscal [id number] 22 Ronaldo Mariscal Notes Date Note Type Note Provider Name and Address Organization Details Recorded Time 11/25/2024 text/html 59-year-old fema vipin has been having some diffuse abdominal pain recently.CT scan shows an abnormal soft tissue density near the left renal pelvis and proximal ureter associated with mild hydronephrosis.She is not have any gross hematuria. There is no significant flank pain. She does have urinary frequency. She urinates every 4-5 times during the night. There is no incontinence. Postvoid residual is small. Will send the urine for cytology. We will try 50 mg Myrbetriq. Will have her see Dr. Waddell for possible ureteroscopy IZZY MARIE MD [address] [place] [address], [phone], [facility] 11/25/2024 16:27:39 11/26/2024 text/html Patient is here for initial visit with me. She saw Dr. Marie yesterday and returned today in follow-up regarding a mass near the left ureteropelvic junction. This was detected on an abdominal CT scan for abdominal discomfort and GI symptoms. Although symptoms have resolved. She did not have any previous gross hematuria or even issues with urinary infections. She has chronic renal insufficiency with a creatinine of 1.7 recently. Her lipid studies were out of range but otherwise her blood work was unremarkable. Her CT scan was at [facility]. We do not have images only the written and dictated report. We discussed that I would like to review the images before deciding on any intervention or observation. A urine specimen yesterday was sent for cytology. Those results are not available yet. They will obtain a disc of her CT scan and drop it off for my review. Will make further determinations at that time. MAGDY WADDELL MD [address] [place] [address], [phone], [facility] 11/27/2024 21:48:45 11/28/2024 text/html Patient is here in follow-up seen initially 2 days ago and brought her disc from her CT contrasted CT scan [facility] for review. She has a 2 x 3 cm lesion of the left kidney just posterior and inferior to the hilum and renal pelvis. Some images appear to be solid and some appear to be cystic. He also has some thickening of the proximal left ureter. We discussed that if this is in fact solid that it could be in the most likely is a renal cell carcinoma. We discussed possibility of it being a benign lesion but either way if it is proven to be solid we should consider left nephrectomy considering its location and near impossibility on obtaining a clear surgical margin. I suggest we arrange for renal ultrasound to try to determine cystic versus solid. I also suggest we arrange for cystoscopy with left retrograde pyelogram and probable diagnostic ureteroscopy before deciding upon final recommendations. She is here today with her . She understands wished to proceed. She does have chronic renal insufficiency with most recent creatinine of 1.7. MAGDY WADDELL MD [address] [place] [address], [phone], [facility] 11/28/2024 14:03:35 12/10/2024 text/html Patient is here in follow-up of a left renal mass. She had renal ultrasound in follow-up of indeterminant CT scan. The area in question looks to be not a simple cyst. Obvious mass was not seen in the renal pelvis. She was concerned about an error in laterality. Again reviewed all findings and the lesion is definitely on the left side. Apparently they were confused when I said left side versus left kidney. But also in the written report there was a mention of the right kidney. This was clarified. She is scheduled for cystoscopy and left retrograde pyelogram. We will do bilateral pyelograms next week. This is to determine whether there is in fact any suggestion of renal pelvic lesion. Again her urinalysis is unremarkable. The lesion is just posterior and inferior to her hilum. It is 2 x 3 cm. MAGDY WADDELL MD [facility] [place], [address], [facility] 12/16/2024 08:02:04 OBGyn Episode No OBEpisode recorded.
--- OUTSIDE RECORDS SUMMARY | 2024-12-19 17:22 | XMS_ITS | Continuity of Care Document ---
Author Organization [facility] Elsie hairston [facility] Address [address] [facility] [address] [place] [address] Care Team Providers Care Learning And Development Assistant Name Role Phone HAI STEVEN Primary Care Provider Assessment No assessment recorded. Plan of Treatment Reminders Order Date Submit Date Provider Last Modified By Organization Details Last Modified Time Details Appointments None recorded. Lab urinalysis panel, auto 2024 025 [email or web address] [facility], [address], [place], [address], 21:48:15 Referral None recorded. Procedures None recorded. Surgeries None recorded. Imaging None recorded. Medication Orders None recorded. Patient TargetsNo targets recorded. Patient InstructionsNo instructions recorded. Reason for Referral None Reported. Results Created Date Observation Date Name Description Value Unit Range Abnormal Flag Note LastModifiedBy Organization Detail LastModifiedTime 11/27/1911/26/2024 urina lysis panel , auto Unknown Analyte Clean Catch Not Available [facility] [address], [place], [address], 11/26/2024 15:42:05 11/27/1911/26/2024 urina lysis panel , auto Unknown Analyte Yellow Not Available [facility] [address], [place], [address], 11/26/2024 15:42:05 11/27/19 25 11/26/2024 urina lysis panel , auto Unknown Analyte Clear Not Available [facility] [address], [place], [address], 11/26/2024 15:42:05 11/27/19 25 11/26/2024 urina lysis panel , auto Unknown Analyte 1.005 Not Available [facility] [address], [place], [address], 11/26/2024 15:42:05 11/27/19 25 11/26/2024 urina lysis panel , auto Unknown Analyte 1.003 - 1.030 Not Available [facility] [address], [place], [address], 11/26/2024 15:42:05 11/27/19 25 11/26/2024 urina lysis panel , auto Unknown Analyte 6.5 Not Available [facility] [address], [place], [address], 11/26/2024 15:42:05 11/27/19 25 11/26/2024 urina lysis panel , auto Unknown Analyte 5.0 - 8.0 Not Available [facility] [address], [place], [address], 11/26/2024 15:42:05 11/27/19 25 11/26/2024 urina lysis panel , auto Unknown Analyte Negati ve Not Available [facility] [address], [place], [address], 11/26/2024 15:42:05 11/27/19 25 11/26/2024 urina lysis panel , auto Unknown Analyte Negati ve Not Available [facility] [address], [place], [address], 11/26/2024 15:42:05 11/27/19 25 11/26/2024 urina lysis panel , auto Unknown Analyte Negati ve Not Available [facility] [address], [place], [address], 11/26/2024 15:42:05 11/27/19 25 11/26/2024 urina lysis panel , auto Unknown Analyte Negati ve Not Available [facility] [address], [place], [address], 11/26/2024 15:42:05 11/27/19 25 11/26/2024 urina lysis panel , auto Unknown Analyte Negati ve Not Available [facility] [address], [place], [address], 11/26/2024 15:42:05 11/27/19 25 11/26/2024 urina lysis panel , auto Unknown Analyte Negati ve Not Available [facility] [address], [place], [address], 11/26/2024 15:42:05 11/27/19 25 11/26/2024 urina lysis panel , auto Unknown Analyte 250 mg/dL Not Available [facility] [address], [place], [address], 11/26/2024 15:42:05 11/27/19 25 11/26/2024 urina lysis panel , auto Unknown Analyte Normal Not Available [facility] [address], [place], [address], 11/26/2024 15:42:05 11/27/19 25 11/26/2024 urina lysis panel , auto Unknown Analyte Negati ve Not Available [facility] [address], [place], [address], 11/26/2024 15:42:05 11/27/19 25 11/26/2024 urina lysis panel , auto Unknown Analyte Negati ve Not Available [facility] [address], [place], [address], 11/26/2024 15:42:05 11/27/19 25 11/26/2024 urina lysis panel , auto Unknown Analyte Normal Not Available [facility] [address], [place], [address], 11/26/2024 15:42:05 11/27/19 25 11/26/2024 urina lysis panel , auto Unknown Analyte Normal Not Available [facility] [address], [place], [address], 11/26/2024 15:42:05 11/27/19 25 11/26/2024 urina lysis panel , auto Unknown Analyte Negati ve Not Available [facility] [address], [place], [address], 11/26/2024 15:42:05 11/27/19 25 11/26/2024 urina lysis panel , auto Unknown Analyte Negati ve Not Available [facility] [address], [place], [address], 11/26/2024 15:42:05 11/27/19 25 11/26/2024 urina lysis panel , auto Unknown Analyte Negati ve Not Available [facility] [address] [facility] [address], [place], [address], 11/26/2024 15:42:05 11/27/19 25 11/26/2024 urina lysis panel , auto Unknown Analyte Negati ve Not Available [facility] [address], [place], [address], 11/26/2024 15:42:05 11/29/19 25 11/28/2024 US, retro perit oneum , limit ed [address] [address] [phone] Patitulio t Name: RONALDO walden : 967 Kaur t 54 Orderi ng Provid er: COTY [...] Keller MD on 025 12:31 PM [email or web address] [facility] Radiology [facility] [address] [place], [address], 12/19/2024 09:33:58 Result Notes None recorded. Problems No Known Problems Procedures Surgical History Date Name Laterality Status Provider Name and Address Organization Details Recorded Time 11/26/19 25 Post Void Residual; Ultrasound completed Francine Suarez [facility] 11/25/2024 13:26:19 hysterectomy completed Francine [facility] 11/25/2024 12:46:58 Imaging Results None recorded. Procedure Notes None recorded. Medical Equipment None Reported. Allergies No known drug allergies Medications Not known to be on any medication Vitals Date Recorded Body height Body mass index (BMI) Body weight Provider Name and Address Organization Details Last Updated DateTime 11/26/2024 154.94 cm 27.4 kg/m2 13975.89 g Kayla Stone [facility] 11/26/2024 16:04:21 Social History Question Answer Notes LastModified by Organizat ion Details LastModified Time Tobacco Smoking Status Never Smoker Not Available [employer] 11/25/2024 12:44:26 What Was The Date Of Your Most Recent Tobacco Screening? 11/28/2024 [email or web address] Information not available 11/28/2024 What Is Your [...] SNOMED-CT Code Diagnosis ICD10 Code Diagnosis Note [id number] IZZY MARIE MD [facility] [address] [place] [address] 11/25/2024 12:44:25 11/25/2024 13:45:30 Blood in urine 69455273 R31.9 Renal mass 974237662 N28 .89 Increased frequency of urination 084386638 R35.0 [id number] MAGDY WADDELL MD [facility] [address] [address] 11/26/2024 15:34:24 11/28/2024 04:12:43 Abdominal mass 967107194 R19.02 Plan as above Health Concerns Section Related Observation LastModified by Organization Detai ls LastModified Time None Recorded Concern Status LastModified by Organization Details LastModified Time None Recorded Payers Encounter Date Sequence Insurance Name Policy Number Policy Larson Covered Member ID Larson Member ID Guarantor Name 11/26/2024 1 [place] [id number] Cory Mariscal [id number] 22 Ronaldo Mariscal Notes Date Note Type Note Provider Name and Address Organization Details Recorded Time 11/26/2024 text/html Patient is here for initial [...] was unremarkable. Her CT scan was at [facility]. We do not have images only the [...] determinations at that time. MAGDY WADDELL MD [address] [place] [address], [phone], [facility] 11/27/2024 21:48:45 OBGyn Episode No OBEpisode recorded.
--- OUTSIDE RECORDS SUMMARY | 2024-12-19 17:22 | XMS_ITS | Continuity of Care Document ---
Author Organization [facility] Elsie hairston [facility] Address [address] [address] [place] [address] Care Team Providers Care Outbound Sales Advisor Name Role Phone HAI STEVEN Primary Care Provider Assessment No assessment recorded. Plan of Treatment Reminders Order Date Submit Date Provider Last Modified By Organization Details Last Modified Time Details Appointments None recorded. Lab urinalysis panel, auto 2024 025 [facility], [address], [place], [address], 14:02:41 Referral None recorded. Procedures None recorded. Surgeries None recorded. Imaging None recorded. Medication Orders None recorded. Patient TargetsNo targets recorded. Patient InstructionsNo instructions recorded. Reason for Referral None Reported. Results Created Date Observation Date Name Description Value Unit Range Abnormal Flag Note LastModifiedBy Organization Detail LastModifiedTime 11/29/1911/28/2024 urina lysis panel , auto Unknown Analyte Clean Catch Not Available [facility] [address], [place], [address], 11/28/2024 10:39:57 11/29/1911/28/2024 urina lysis panel , auto Unknown Analyte Straw Not Available [facility] [address], [place], [address], 11/28/2024 10:39:57 11/29/19 25 11/28/2024 urina lysis panel , auto Unknown Analyte Clear Not Available [facility] [address], [place], [address], 11/28/2024 10:39:57 11/29/19 25 11/28/2024 urina lysis panel , auto Unknown Analyte 1.020 Not Available [facility] [address], [place], [address], 11/28/2024 10:39:57 11/29/19 25 11/28/2024 urina lysis panel , auto Unknown Analyte 1.003 - 1.030 Not Available [facility] [address], [place], [address], 11/28/2024 10:39:57 11/29/19 25 11/28/2024 urina lysis panel , auto Unknown Analyte 6.0 Not Available [facility] [address], [place], [address], 11/28/2024 10:39:57 11/29/19 25 11/28/2024 urina lysis panel , auto Unknown Analyte 5.0 - 8.0 Not Available [facility] [address], [place], [address], 11/28/2024 10:39:57 11/29/19 25 11/28/2024 urina lysis panel , auto Unknown Analyte Negati ve Not Available [facility] [address], [place], [address], 11/28/2024 10:39:57 11/29/19 25 11/28/2024 urina lysis panel , auto Unknown Analyte Negati ve Not Available [facility] [address], [place], [address], 11/28/2024 10:39:57 11/29/19 25 11/28/2024 urina lysis panel , auto Unknown Analyte Negati ve Not Available [facility] [address], [place], [address], 11/28/2024 10:39:57 11/29/19 25 11/28/2024 urina lysis panel , auto Unknown Analyte Negati ve Not Available [facility] [address], [place], [address], 11/28/2024 10:39:57 11/29/19 25 11/28/2024 urina lysis panel , auto Unknown Analyte 30 mg/dL Not Available [facility] [address], [place], [address], 11/28/2024 10:39:57 11/29/19 25 11/28/2024 urina lysis panel , auto Unknown Analyte Negati ve Not Available [facility] [address], [place], [address], 11/28/2024 10:39:57 11/29/19 25 11/28/2024 urina lysis panel , auto Unknown Analyte >1000 mg/dL Not Available [facility] [address], [place], [address], 11/28/2024 10:39:57 11/29/19 25 11/28/2024 urina lysis panel , auto Unknown Analyte Normal Not Available [facility] [address], [place], [address], 11/28/2024 10:39:57 11/29/19 25 11/28/2024 urina lysis panel , auto Unknown Analyte 15 mg/dL Not Available [facility] [address], [place], [address], 11/28/2024 10:39:57 11/29/19 25 11/28/2024 urina lysis panel , auto Unknown Analyte Negati ve Not Available [facility] [address], [place], [address], 11/28/2024 10:39:57 11/29/19 25 11/28/2024 urina lysis panel , auto Unknown Analyte Normal Not Available [facility] [address], [place], [address], 11/28/2024 10:39:57 11/29/19 25 11/28/2024 urina lysis panel , auto Unknown Analyte Normal Not Available [facility] [address], [place], [address], 11/28/2024 10:39:57 11/29/19 25 11/28/2024 urina lysis panel , auto Unknown Analyte Negati ve Not Available [facility] [address], [place], [address], 11/28/2024 10:39:57 11/29/19 25 11/28/2024 urina lysis panel , auto Unknown Analyte Negati ve Not Available [facility] [address] [facility] [address], [place], [address], 11/28/2024 10:39:57 11/29/19 25 11/28/2024 urina lysis panel , auto Unknown Analyte Negati ve Not Available [facility] [address] [facility] [address], [place], [address], 11/28/2024 10:39:57 11/29/19 25 11/28/2024 urina lysis panel , auto Unknown Analyte Negati ve Not Available [facility] [address] [facility] [address], [place], [address], 11/28/2024 10:39:57 11/29/19 25 11/28/2024 US, retro perit oneum , limit ed [address] [address] [phone] Patitulio t Name: RONALDO walden : 967 Patitulio t 54 Orderi ng Provid er: COTY [...] Keller MD on 025 12:31 PM [email or web address] [facility] [address] [place], [address], 12/19/2024 09:33:58 Result Notes None recorded. Problems No Known Problems Procedures Surgical History Date Name Laterality Status Provider Name and Address Organization Details Recorded Time 11/26/19 25 Post Void Residual; Ultrasound completed [facility] 11/25/2024 13:26:19 hysterectomy completed [facility] 11/25/2024 12:46:58 Imaging Results None recorded. Procedure Notes None recorded. Medical Equipment None Reported. Allergies No known drug allergies Medications Not known to be on any medication Vitals Date Recorded Body height Body mass index (BMI) Body weight Provider Name and Address Organization Details Last Updated DateTime 11/28/2024 154.94 cm 27.4 kg/m2 67673.89 g Andreravi Manuel [facility] 11/28/2024 10:57:24 Social History Question Answer Notes LastModified by Organizat ion Details LastModified Time Tobacco Smoking Status Never Smoker Not Available [employer] 11/25/2024 12:44:26 What Was The Date Of Your Most Recent Tobacco Screening? 11/28/2024 [email or web address] Information not available 11/28/2024 What Is Your [...] available 2024 12:44:26 Medical History Condition Response If you get up at night to urinate, how m any times? Y Depression Y Do you get up at night to urinate? Y Diabetes Y Acid Reflux (GERD) Y Kidney Disease Y Gynecological History Statement/Question Response Female Hormone Problem N # of Pregnancies 2 Abnormal Periods N # of Births 2 Could you be now? N Current Control Method Hysterectom y Uterus/Ovaries Problem N Obstetrics History GPAL:G 0 P 0 0 0 0 Past Encounters Encounter ID Performer Location Encounter Start Date Encounter Closed Date Diagnosis/Indication Diagnosis SNOMED-CT Code Diagnosis ICD10 Code Diagnosis Note [id number] IZZY MARIE MD [facility] [address] [address] 11/25/2024 12:44:25 11/25/2024 13:45:30 Blood in urine 51122526 R31.9 Renal mass 762466025 N28 .89 Increased frequency of urination 224909982 R35.0 [id number] MAGDY WADDELL MD [facility] [address] [address] 11/26/2024 15:34:24 11/28/2024 04:12:43 Abdominal mass 893340766 R19.02 Plan as above [id number] MAGDY WADDELL MD [facility] [address],[place] [address] 11/28/2024 09:35:57 11/28/2024 11:42:55 Renal mass 654897984 N28.89 As above with very long discussion as well as review of outside CT scan images. We will arrange for renal ultrasound as well as cystoscopy left retrograde pyelogram possible diagnostic ureterosco py Health Concerns Section Related Observation LastModified by Organization Detai ls LastModified Time None Recorded Concern Status LastModified by Organization Details LastModified Time None Recorded Payers Encounter Date Sequence Insurance Name Policy Number Policy Larson Covered Member ID Larson Member ID Guarantor Name 11/28/2024 1 [place] [id number] Cory Mariscal [id number] 22 Ronaldo Brownefelisha Notes Date Note Type Note Provider Name and Address Organization Details Recorded Time 11/28/2024 text/html Patient is here in follow-up seen initially 2 days ago and brought her disc from her CT contrasted [facility] for [facility]. She has a 2 x [...] recent creatinine of 1.7. MAGDY WADDELL MD [facility] [place], [address], [facility] 11/28/2024 14:03:35 OBGyn Episode No OBEpisode recorded.
--- OUTSIDE RECORDS SUMMARY | 2024-12-19 17:22 | XMS_ITS | Continuity of Care Document ---
Author Organization [facility] Elsie hairston [facility] Address [address] [place] [address] Care Team Providers Care Game Warden Name Role Phone HAI STEEVN Primary Care Provider [phone] Assessment No assessment recorded. Plan of Treatment Reminders Order Date Submit Date Provider Last Modified By Organization Details Last Modified Time Details Appointments None recorded. Lab urinalysis panel, auto 2024 025 [email or web address] [facility], [address], [address], [place], [address], 08:01:27 Referral None recorded. Procedures None recorded. Surgeries None recorded. Imaging None recorded. Medication Orders None recorded. Patient TargetsNo targets recorded. Patient InstructionsNo instructions recorded. Reason for Referral None Reported. Results Created Date Observation Date Name Description Value Unit Range Abnormal Flag Note LastModifiedBy Organization Detail LastModifiedTime 12/11/1912/10/2024 urina lysis panel , auto Unknown Analyte Clean Catch Not Available [facility] [address], [place], [address], 12/10/2024 13:32:56 12/11/1912/10/2024 urina lysis panel , auto Unknown Analyte Yellow Not Available [facility] [address], [place], [address], 12/10/2024 13:32:56 12/11/19 25 12/10/2024 urina lysis panel , auto Unknown Analyte Clear Not Available [facility] [address], [place], [address], 12/10/2024 13:32:56 12/11/19 25 12/10/2024 urina lysis panel , auto Unknown Analyte 1.005 Not Available [facility] [address], [place], [address], 12/10/2024 13:32:56 12/11/19 25 12/10/2024 urina lysis panel , auto Unknown Analyte 1.003 - 1.030 Not Available [facility] [address], [place], [address], 12/10/2024 13:32:56 12/11/19 25 12/10/2024 urina lysis panel , auto Unknown Analyte 7.0 Not Available [facility] [address], [place], [address], 12/10/2024 13:32:56 12/11/19 25 12/10/2024 urina lysis panel , auto Unknown Analyte 5.0 - 8.0 Not Available [facility] [address], [place], [address], 12/10/2024 13:32:56 12/11/19 25 12/10/2024 urina lysis panel , auto Unknown Analyte Negati ve Not Available [facility] [address], [place], [address], 12/10/2024 13:32:56 12/11/19 25 12/10/2024 urina lysis panel , auto Unknown Analyte Negati ve Not Available [facility] [address], [place], [address], 12/10/2024 13:32:56 12/11/19 25 12/10/2024 urina lysis panel , auto Unknown Analyte Negati ve Not Available [facility] [address], [place], [address], 12/10/2024 13:32:56 12/11/19 25 12/10/2024 urina lysis panel , auto Unknown Analyte Negati ve Not Available [facility] [address], [place], [address], 12/10/2024 13:32:56 12/11/19 25 12/10/2024 urina lysis panel , auto Unknown Analyte Negati ve Not Available [facility] [address], [place], [address], 12/10/2024 13:32:56 12/11/19 25 12/10/2024 urina lysis panel , auto Unknown Analyte Negati ve Not Available [facility] [address], [place], [address], 12/10/2024 13:32:56 12/11/19 25 12/10/2024 urina lysis panel , auto Unknown Analyte Normal Not Available [facility] [address], [place], [address], 12/10/2024 13:32:56 12/11/19 25 12/10/2024 urina lysis panel , auto Unknown Analyte Normal Not Available [facility] [address], [place], [address], 12/10/2024 13:32:56 12/11/19 25 12/10/2024 urina lysis panel , auto Unknown Analyte Negati ve Not Available [facility] [address], [place], [address], 12/10/2024 13:32:56 12/11/19 25 12/10/2024 urina lysis panel , auto Unknown Analyte Negati ve Not Available [facility] [address], [place], [address], 12/10/2024 13:32:56 12/11/19 25 12/10/2024 urina lysis panel , auto Unknown Analyte Normal Not Available [facility] [address], [place], [address], 12/10/2024 13:32:56 12/11/19 25 12/10/2024 urina lysis panel , auto Unknown Analyte Normal Not Available [facility] [address], [place], [address], 12/10/2024 13:32:56 12/11/19 25 12/10/2024 urina lysis panel , auto Unknown Analyte Negati ve Not Available [facility] [address], [place], [address], 12/10/2024 13:32:56 12/11/19 25 12/10/2024 urina lysis panel , auto Unknown Analyte Negati ve Not Available [facility] [address], [place], [address], 12/10/2024 13:32:56 12/11/19 25 12/10/2024 urina lysis panel , auto Unknown Analyte Negati ve Not Available [facility] [address] [facility] [address], [place], [address], 12/10/2024 13:32:56 12/11/19 25 12/10/2024 urina lysis panel , auto Unknown Analyte Negati ve Not Available [facility] [address] [facility] [address], [place], [address], 12/10/2024 13:32:56 11/29/19 25 11/28/2024 US, retro perit oneum , limit ed [facility] [address] [place] [address] [phone] Patitulio t Name: RONALDO walden : [phone] [...] Keller MD on 025 12:31 PM [email or web address] [facility] [address] [place], [address], 12/19/2024 09:33:58 Result Notes None recorded. Problems No Known Problems Procedures Surgical History Date Name Laterality Status Provider Name and Address Organization Details Recorded Time 11/26/19 Post Void Residual; Ultrasound completed Francine Suarez [facility] 11/25/2024 13:26:19 hysterectomy completed Francine Suarez [facility] 11/25/2024 12:46:58 Imaging Results None recorded. Procedure Notes None recorded. Medical Equipment None Reported. Allergies No known drug allergies Medications Not known to be on any medication Vitals None Recorded Social History Question Answer Notes LastModified by Organizat ion Details LastModified Time Tobacco Smoking Status Never Smoker Not Available [employer] 11/25/2024 12:44:26 What Was The Date Of Your Most Recent Tobacco Screening? 11/28/2024 [email or web address] Information not available 11/28/2024 What Is Your [...] SNOMED-CT Code Diagnosis ICD10 Code Diagnosis Note [id number] IZZY MARIE MD [facility] [address] [address] 11/25/2024 12:44:25 11/25/2024 13:45:30 Blood in urine 86791289 R31.9 Renal mass 053810511 N28 .89 Increased frequency of urination 834648386 R35.0 [id number] MAGDY WADDELL MD [facility] [address] [address] 11/26/2024 15:34:24 11/28/2024 04:12:43 Abdominal mass 649322877 R19.02 Plan as above [id number] MAGDY WADDELL MD [facility] [address] [address] 11/28/2024 09:35:57 11/28/2024 11:42:55 Renal mass 899854215 N28.89 As above with very long discussion as well as review of outside CT scan images. We will arrange for renal ultrasound as well as cystoscopy left retrograde pyelogram possible diagnostic ureterosco py [id number] MAGDY WADDELL MD [facility] [address] [address] 12/10/2024 13:21:56 12/10/2024 15:02:15 Renal mass 073470590 N28.89 As above Health Concerns Section Related Observation LastModified by Organization Detai ls LastModified Time None Recorded Concern Status LastModified by Organization Details LastModified Time None Recorded Payers Encounter Date Sequence Insurance Name Policy Number Policy Larson Covered Member ID Larson Member ID Guarantor Name 12/10/2024 1 [place] [id number] Cory Mariscal [id number] 22 Ronaldo Brownefelisha Notes Date Note Type Note Provider Name and Address Organization Details Recorded Time 12/10/2024 text/html Patient is here in follow-up [...] 2 x 3 cm. MAGDY WADDELL MD [address] [place] [address], [address], [facility] 12/16/2024 08:02:04 OBGyn Episode No OBEpisode recorded.
--- OUTSIDE RECORDS SUMMARY | 2024-12-19 17:22 | XMS_ITS | Continuity of Care Document ---
Author Organization [facility] Elsie hairston [facility] Address [address] [place] [address] Care Team Providers Care Bilingual Case Manager Name Role Phone HAI STEVEN Primary Care Provider Assessment No assessment recorded. Plan of Treatment Reminders Order Date Submit Date Provider Last Modified By Organization Details Last Modified Time Details Appointments None recorded. Lab urinalysis panel, auto 2024 025 [facility], [address] [facility], [place], [address], 16:36:39 cytology, non-gynecol ogical, unspecified specimen 2024 025 [facility], [address] [place] [address], [address], 12:51:30 Referral None recorded. Procedures None recorded. Surgeries None recorded. Imaging None recorded. Medication Orders None recorded. Patient TargetsNo targets recorded. Patient InstructionsNo instructions recorded. Reason for Referral None Reported. Results Created Date Observation Date Name Description Value Unit Range Abnormal Flag Note LastModifiedBy Organization Detail LastModifiedTime 11/26/1911/25/2024 urina lysis panel , auto Unknown Analyte Clean Catch Not Available [facility] [address], [place], [address], 11/25/2024 12:46:07 11/26/19 25 11/25/2024 urina lysis panel , auto Unknown Analyte Yellow Not Available [facility] [address], [place], [address], 11/25/2024 12:46:07 11/26/19 25 11/25/2024 urina lysis panel , auto Unknown Analyte Clear Not Available [facility] [address], [place], [address], 11/25/2024 12:46:07 11/26/1911/25/2024 urina lysis panel , auto Unknown Analyte 1.010 Not Available [facility] [address], [place], [address], 11/25/2024 12:46:07 11/26/19 25 11/25/2024 urina lysis panel , auto Unknown Analyte 1.003 - 1.030 Not Available [facility] [address], [place], [address], 11/25/2024 12:46:07 11/26/19 25 11/25/2024 urina lysis panel , auto Unknown Analyte 8.0 Not Available [facility] [address], [place], [address], 11/25/2024 12:46:07 11/26/1911/25/2024 urina lysis panel , auto Unknown Analyte 5.0 - 8.0 Not Available [facility] [address], [place], [address], 11/25/2024 12:46:07 11/26/19 25 11/25/2024 urina lysis panel , auto Unknown Analyte Negati ve Not Available [facility] [address], [place], [address], 11/25/2024 12:46:07 11/26/19 25 11/25/2024 urina lysis panel , auto Unknown Analyte Negati ve Not Available [facility] [address], [place], [address], 11/25/2024 12:46:07 11/26/1911/25/2024 urina lysis panel , auto Unknown Analyte Negati ve Not Available [facility] [address], [place], [address], 11/25/2024 12:46:07 11/26/19 25 11/25/2024 urina lysis panel , auto Unknown Analyte Negati ve Not Available [facility] [address], [place], [address], 11/25/2024 12:46:07 11/26/19 25 11/25/2024 urina lysis panel , auto Unknown Analyte Negati ve Not Available [facility] [address], [place], [address], 11/25/2024 12:46:07 11/26/1911/25/2024 urina lysis panel , auto Unknown Analyte Negati ve Not Available [facility] [address], [place], [address], 11/25/2024 12:46:07 11/26/19 25 11/25/2024 urina lysis panel , auto Unknown Analyte >1000 mg/dL Not Available [facility] [address], [place], [address], 11/25/2024 12:46:07 11/26/19 25 11/25/2024 urina lysis panel , auto Unknown Analyte Normal Not Available [facility] [address], [place], [address], 11/25/2024 12:46:07 11/26/19 25 11/25/2024 urina lysis panel , auto Unknown Analyte Negati ve Not Available [facility] [address], [place], [address], 11/25/2024 12:46:07 11/26/19 25 11/25/2024 urina lysis panel , auto Unknown Analyte Negati ve Not Available [facility] [address], [place], [address], 11/25/2024 12:46:07 11/26/19 25 11/25/2024 urina lysis panel , auto Unknown Analyte Normal Not Available [facility] [address], [place], [address], 11/25/2024 12:46:07 11/26/19 25 11/25/2024 urina lysis panel , auto Unknown Analyte Normal Not Available [facility] [address], [place], [address], 11/25/2024 12:46:07 11/26/19 25 11/25/2024 urina lysis panel , auto Unknown Analyte Negati ve Not Available [facility] [address], [place], [address], 11/25/2024 12:46:07 11/26/19 25 11/25/2024 urina lysis panel , auto Unknown Analyte Negati ve Not Available [facility] [address] [facility] [address], [place], [address], 11/25/2024 12:46:07 11/26/19 25 11/25/2024 urina lysis panel , auto Unknown Analyte Negati ve Not Available [facility] [address] [facility] [address], [place], [address], 11/25/2024 12:46:07 11/26/19 25 11/25/2024 urina lysis panel , auto Unknown Analyte Negati ve Not Available [facility] [address] [facility] [address], [place], [address], 11/25/2024 12:46:07 11/29/19 25 11/28/2024 US, retro perit oneum , limit ed [address] [address] [phone] Patitulio t Name: RONALDO Dietrich t : 967 Patitulio t 54 Orderi ng [...] Keller MD on 025 12:31 PM [email or web address] [facility] [address] [place], [address], 12/19/2024 09:33:58 Result Notes None recorded. Problems No Known Problems Procedures Surgical History Date Name Laterality Status Provider Name and Address Organization Details Recorded Time 11/26/19 25 Post Void Residual; Ultrasound completed [facility] 11/25/2024 13:26:19 hysterectomy completed [facility] 11/25/2024 12:46:58 Imaging Results None recorded. Procedure Notes None recorded. Medical Equipment None Reported. Allergies No known drug allergies Medications Not known to be on any medication Vitals Date Recorded Body height Body mass index (BMI) Body weight Provider Name and Address Organization Details Last Updated DateTime 11/25/2024 154.94 cm 27.4 kg/m2 84575.89 g [facility] 11/25/2024 12:46:30 Social History Question Answer Notes LastModified by Organizat ion Details LastModified Time Tobacco Smoking Status Never Smoker Not Available [employer] 11/25/2024 12:44:26 What Was The Date Of Your Most Recent Tobacco Screening? 11/28/2024 [email or web address] Information not available 11/28/2024 What Is Your [...] SNOMED-CT Code Diagnosis ICD10 Code Diagnosis Note [id number] IZZY MARIE MD [facility] [address] [place] [address] 11/25/2024 12:44:25 11/25/2024 13:45:30 Blood in urine 58963107 R31.9 Renal mass 691536728 N28 .89 Increased frequency of urination 408038631 R35.0 Health Concerns Section Related Observation LastModified by Organization Detai ls LastModified Time None Recorded Concern Status LastModified by Organization Details LastModified Time None Recorded Payers Encounter Date Sequence Insurance Name Policy Number Policy Larson Covered Member ID Larson Member ID Guarantor Name 11/25/2024 1 [employer] [id number] Cory Mariscal [id number] 22 Ronaldo Mariscal Notes Date Note Type Note Provider Name and Address Organization Details Recorded Time 11/25/2024 text/html 59-year-old benson lew has been having some diffuse abdominal pain [...] Waddell for possible ureteroscopy IZZY MARIE MD [address] [place], [address], [facility] 11/25/2024 16:27:39 OBGyn Episode No OBEpisode recorded.
--- OUTSIDE RECORDS SUMMARY | 2024-12-19 17:23 | XMS_ITS | Data Portability ---
Author Organization [facility] - Erich hudson MD, Main Office Address [address] [place] [address], [address] [address] Assessment No assessment recorded. Plan of Treatment [...] By Organization Details Last Modified Time 06/20/2021 [id number] Carpal Tunnel Syndrome: Care Instructions [email or web address] Not [...] Jayson Lewis MD 06/20/2021 08:23:16 Imaging Results None recorded. Procedure Notes None [...] SNOMED-CT Code Diagnosis ICD10 Code Diagnosis Note [id number] Erich Lewis MD Main Office [address] [facility] [address] [place] [address] 06/20/2021 07:49:17 06/20/2021 08:26:26 Bilateral carpal tunnel syndrome 2037406408 5277298 G56.03 Moderate to severe right, mild left CTS. Health Concerns Section Related Observation LastModified by Organization Detai ls LastModified Time None Recorded Concern Status LastModified by Organization Details LastModified Time None Recorded Advance Directives Directive None Recorded Payers Encounter Date Sequence Insurance Name Policy Number Policy Larson Covered Member ID Larson Member ID Guarantor Name 06/20/2021 1 [employer] [id number] Cory Mariscal [id number] Josefa Mariscal OBGyn Episode No OBEpisode recorded.
== END 2024-12-19 23:59 | disposition home or self-care (01) ==
LOC: LAB 17:20
PROVIDERS: PCP Internal Medicine Adolescent Medicine; Visit Provider Nurse Practitioner Family
DX: R10.2 Pelvic and perineal pain (principal)
CPT/HCPCS: 87086

== ENCOUNTER 2024-12-21 18:14 | Outpatient (CLI) | payer BC, SELFPAY ==
[2024-12-21 20:37] LABS: Coronavirus 19, PCR Not Detected (NotDetected); Human Rhinovirus Not Detected (NotDetected); Influenza A, PCR Not Detected (NotDetected); Influenza B, PCR Not Detected (NotDetected); Respiratory Syncytial Virus Not Detected (NotDetected)
--- OUTSIDE RECORDS SUMMARY | 2024-12-22 10:49 | XMS_ITS | Continuity of Care Document ---
Author Organization [facility], SURGERY SCHEDULE Address [address] [place] [address] Care Team Providers Care Supervisor Pile Driving Name Role Phone HAI STEVEN Primary Care Provider Assessment Encounter Date Assessment Date Assessment LastModified by Organization Details LastModified Time 12/17/2024 12/17/2024 PREOPERATIVE DIAGNOSIS: Possible renal pelvic mass. POSTOPERATIVE DIAGNOSIS: Normal anatomy. PROCEDURE: Bilateral retrograde pyelograms with cystoscopy followed by left flexible ureteroscopy, diagnostically. Fluoroscopy less than 1 hour. ANESTHESIA: General. DRAINS: None. SPECIMENS: None. SURGEON: Armando Waddell MD BRIEF HISTORY: Patient originally presented to me with possible left renal mass and some irregularity to the left renal pelvis and proximal ureter on CT scan and MRI. She never had gross hematuria. She has had several imaging studies to try to clarify. She presents today for cystoscopy with retrograde pyelography and possibly a diagnostic ureteroscopy. OPERATIVE NOTE: After satisfactory general anesthesia, she was carefully placed in the lithotomy position. Genitalia was prepped and draped in the normal fashion. A 21-Paraguayan cystoscopy sheath was introduced. The bladder was inspected entirely and was unremarkable. The right side retrograde pyelogram was performed through a 5-Paraguayan open-end ureteral catheter. Course and contour of the ureter as well as collecting system were completely unremarkable and emptied promptly. The calices were fine and delicate, and there were no filling defects. On the left side, it had a similar appearance; however, there seemed to be a persistent shadow in the inferior portion of the left renal pelvis. I then passed a 0.035 Sensor wire to the kidney and easily exchanged the cystoscope for the flexible ureteroscope, which was advanced easily over the wire out of the bladder and into the renal pelvis. The entire collecting system was inspected and was unremarkable. There were no papillary tumor growth in the renal pelvis as well as ureteral mucosa appeared completely smooth and unremarkable. The scope was slowly withdrawn. The process seen on her CT scan, if significantly present, is in the parenchyma of the kidney and not within the confines of the collecting system. We will consider whether to proceed with left nephrectomy versus observation and re-imaging of her kidney in 2 to 3 months. [email or web address] Not available 12/17/2024 14:59:40 Plan of Treatment Reminders Order Date Submit Date Provider Last Modified By Organization Details Last Modified Time Details Appointments None record ed. Lab None record ed. Referral None record ed. Procedures None record ed. Surgeries None record ed. Imaging None record ed. Medication Orders None record ed. Patient TargetsNo targets recorded. Patient InstructionsNo instructions recorded. Reason for Referral None Reported. Results Created Date Observation Date Name Description Value Unit Range Abnormal Flag Note LastModifiedBy Organization Detail LastModifiedTime 11/29/19 25 11/28/2024 US, retro perit oneum , limit ed [address] [address] Patien t Name: RONALDO walden : 967 Patitulio [...] Keller MD on 025 12:31 PM [email or web address] [facility] [address] [place], [address], 12/19/2024 09:33:58 Result Notes None recorded. Problems No Known Problems Procedures Surgical History Date Name Laterality Status Provider Name and Address Organization Details Recorded Time 11/26/19 25 Post Void Residual; Ultrasound completed Francine Suarez [facility] 11/25/2024 13:26:19 hysterectomy completed Francine Erick [facility] 11/25/2024 12:46:58 Imaging Results None recorded. Procedure Notes None recorded. Medical Equipment None Reported. Allergies No known drug allergies Medications Not known to be on any medication Vitals None Recorded Social History Question Answer Notes LastModified by Organizat ion Details LastModified Time Tobacco Smoking Status Never Smoker Not Available [employer] 11/25/2024 12:44:26 What Was The Date Of Your Most Recent Tobacco Screening? 11/28/2024 [email or web address] Information not available 11/28/2024 What Is Your [...] available 2024 12:44:26 Medical History Condition Response Depression Y Acid Reflux (GERD) Y Kidney Disease Y If you get up at night to urinate, how m any times? Y Do you get up at night to urinate? Y Diabetes Y Gynecological History Statement/Question Response Female Hormone Problem N # of Pregnancies 2 Abnormal Periods N # of Births 2 Could you be now? N Current Control Method Hysterectom y Uterus/Ovaries Problem N Obstetrics History GPAL:G 0 P 0 0 0 0 Past Encounters Encounter ID Performer Location Encounter Start Date Encounter Closed Date Diagnosis/Indication Diagnosis SNOMED-CT Code Diagnosis ICD10 Code Diagnosis Note [id number] IZZY MARIE MD [facility] [address] [address] 11/25/2024 12:44:25 11/25/2024 13:45:30 Blood in urine 97542702 R31.9 Renal mass 060128281 N28 .89 Increased frequency of urination 501451257 R35.0 [id number] ARMANDO WADDELL MD [facility] [address] [address] 11/26/2024 15:34:24 11/28/2024 04:12:43 Abdominal mass 925755920 R19.02 Plan as above [id number] ARMANDO WADDELL MD [facility] [address] [address] 11/28/2024 09:35:57 11/28/2024 11:42:55 Renal mass 391111224 N28.89 As above with very long discussion as well as review of outside CT scan images. We will arrange for renal ultrasound as well as cystoscopy left retrograde pyelogram possible diagnostic ureterosco py [id number] ARMANDO WADDELL MD [facility] [address] [address] 12/10/2024 13:21:56 12/10/2024 15:02:15 Renal mass 385618605 N28.89 As above [id number] ARMANDO WADDELL MD SURGERY SCHEDULE [address] [place] [address] 12/17/2024 07:47:34 12/17/2024 07:48:17 Health Concerns Section Related Observation LastModified by Organization Detai ls LastModified Time None Recorded Concern Status LastModified by Organization Details LastModified Time None Recorded Payers Encounter Date Sequence Insurance Name Policy Number Policy Larson Covered Member ID Larson Member ID Guarantor Name 12/17/2024 1 [facility] [facility] [id number] Cory Mariscal [id number] Ronaldo Mariscal OBGyconrad Episode No OBEpisode recorded.
== END 2024-12-21 23:59 | disposition home or self-care (01) ==
LOC: LAB.DROPOF 12-22 10:42
PROVIDERS: PCP Nurse Practitioner; Visit Provider Nurse Practitioner
DX: R52 Pain, unspecified (principal)
CPT/HCPCS: 87631